=== PATIENT | male | born 1940 | race Caucasian/White ===

== ENCOUNTER 2018-03-30 18:14 | Observation (INO) | payer MEDICARE, OTHER ==
[2018-03-30] MEDS ORDERED: Acetaminophen 325 MG Tab PO PRN (19:52)
--- NOTE | 2018-03-30 19:59 | EDM.PDOC ---
ED HPI GENERAL MEDICAL PROBLEM - General Chief Complaint: General Stated Complaint: Possible Influenza Time Seen by Provider: 03/30/18 19:00 Source of Information: Reports: Patient History Limitations: Reports: No Limitations - History of Present Illness INITIAL COMMENTS - FREE TEXT/NARRATIVE: This is a 77yo M here for concerns of weakness. He was brought in by his and 2 sons. He had an episode like this in January 2018 and was placed in observation and after some fluids his symptoms resolved. Patient denies any chest pain, no fever or chills but felt that he may have had some fever. He denies any injury and is in good spirits. He does have some concerns of fatigue and weakness and unable to get out of bed. Patient states he has been feeling down all winter and getting weaker all winter. He states he has lost his appetite as well and has lost weight. He denies any other health concerns and recently saw his PCP Dr. Miranda in [place] on Mar 22. Onset: Gradual, Unknown/Unsure Duration: Week(s):, Chronic Location: Reports: Generalized Severity: Severe Improves with: Reports: None Worsens with: Reports: None Associated Symptoms: Reports: Weakness Generalized Pain Score (Numeric/FACES): 5 - Related Data Allergies Allergy/AdvReac Type Severity Reaction Status Date / Time No Known Allergies Allergy Verified 03/30/18 19:05 Home Meds: Home Meds RX: Fluticasone/Salmeterol [Advair 250-50 Diskus] 1 puff IH BID 10/12/14 [ History] RX: Folic Acid 1 mg PO DAILY 10/12/14 [History] RX: Methotrexate Sodium [Methotrexate] 22.5 mg PO WEEKLY 10/12/14 [History] RX: Omeprazole 20 mg PO DAILY 10/12/14 [History] RX: Tiotropium [Spiriva Handihaler] 18 mcg IH DAILY 10/12/14 [History] RX: Clobetasol Propionate [Temovate 0.05% Oint] 15 gm TP DAILY 01/21/18 [History ] Calcium Carbonate/Vitamin D3 [Calcium 1,000 + D3 Caplet] 1 each PO DAILY [History] Cholecalciferol (Vitamin D3) [D3-2000] 2,000 units PO DAILY 03/30/18 [History] RX: Biotin 10,000 mcg PO DAILY 03/30/18 [History] Vits A/C/E/B Complx/Min/Lutein [Lipotriad Caplet] 1 tab PO DAILY 03/30/18 [ History] Past Medical History Respiratory History: Reports: COPD, Other (See Below) Other Respiratory History: asbestosis Gastrointestinal History: Reports: GERD Other Gastrointestinal History: hx of GERD, GI scope to be done oct 23, 2014 in [facility] Other Musculoskeletal History: hx of scolosis, spinal stenosis - Infectious Disease History Infectious Disease History: Reports: Chicken Pox, Mumps - Past Surgical History Respiratory Surgical History: Reports: None Musculoskeletal Surgical History: Reports: None Social & Family History - Family History Family Medical History: Noncontributory - Tobacco Use Smoking Status *Q: Former Smoker Packs/Tins Daily: 1 Used Tobacco, but Quit: Yes Month/Year Tobacco Last Used: 1984 - Caffeine Use Caffeine Use: Reports: Coffee - Recreational Drug Use Recreational Drug Use: No ED ROS GENERAL - Review of Systems Review Of Systems: ROS reveals no pertinent complaints other than HPI. ED EXAM, GENERAL - Physical Exam Exam: See Below Exam Limited By: No Limitations General Appearance: Alert, WD/WN, No Apparent Distress Eye Exam: Bilateral Eye: EOMI, PERRL Ears: Normal External Exam Nose: Normal Inspection Throat/Mouth: Normal Inspection Head: Atraumatic, Normocephalic Neck: Normal Inspection, Supple, Non-Tender, Full Range of Motion Respiratory/Chest: No Respiratory Distress, Lungs Clear, Normal Breath Sounds Cardiovascular: Normal Peripheral Pulses, Regular Rate, Rhythm Peripheral Pulses: 2+: Dorsalis Pedis (L), Dorsalis Pedis (R) GI/Abdominal: Normal Bowel Sounds Back Exam: Normal Inspection Extremities: Normal Inspection, Normal Range of Motion, Non-Tender, No Pedal Edema, Normal Capillary Refill Neurological: Alert, Oriented, Other (unable to stand up) Psychiatric: Normal Affect, Normal Mood Skin Exam: Warm, Dry, Intact Course - Vital Signs Last Recorded V/S: Last Vital Signs Temp 37.0 C 03/31/18 19:32 Pulse 59 L 03/31/18 19:32 Resp 16 04/01/18 00:00 BP 118/61 03/31/18 19:32 Pulse Ox 98 03/31/18 19:32 - Orders/Labs/Meds Orders: Medication Orders Acetaminophen (Tylenol) 650 mg PO Q4H PRN PRN Reason: analgesia/fever Calcium Carbonate/Glycine (Tums) 1,000 mg PO Q2HR PRN PRN Reason: Indigestion Last Admin: 03/31/18 19:31 Dose: 1,000 mg Cholecalciferol (Vitamin D3) 2,000 unit PO DAILY [facility] Last Admin: 04/01/18 07:39 Dose: 2,000 unit Admin: 03/31/18 08:23 Dose: 2,000 unit Folic Acid (Folic Acid) 1 mg PO DAILY [facility] Last Admin: 04/01/18 07:39 Dose: 1 mg Admin: 03/31/18 08:22 Dose: 1 mg Sodium Chloride (Normal Saline) 1,000 mls @ 75 mls/hr IV ASDIRECTED [facility] Last Admin: 04/01/18 01:40 Dose: 75 mls/hr Infusion: 03/31/18 11:18 Dose: 75 mls/hr Admin: 03/30/18 21:58 Dose: 75 mls/hr Non-Formulary Medication (Biotin [Biotin]) 10,000 mcg PO DAILY [facility] Last Admin: 04/01/18 07:38 Dose: 10,000 mcg Admin: 03/31/18 08:22 Dose: 10,000 mcg Non-Formulary Medication (Calcium Carbonate/Vitamin D3 [Calcium 1,000 + D3 Caplet]) 1 each PO DAILY [facility] Last Admin: 04/01/18 07:38 Dose: 1 each Admin: 03/31/18 08:21 Dose: 1 each Non-Formulary Medication (Clobetasol Propionate [Temovate 0.05% Oint]) 15 gm TP DAILY [facility] Last Admin: 04/01/18 07:40 Dose: Admin: 03/31/18 09:09 Dose: Non-Formulary Medication (Fluticasone/Salmeterol [Advair 250-50 Diskus]) 1 puff IH BID [facility] Last Admin: 04/01/18 07:39 Dose: 1 puff Admin: 03/31/18 19:32 Dose: 1 puff Admin: 03/31/18 08:21 Dose: 1 puff Admin: 03/30/18 22:16 Dose: Not Given Non-Formulary Medication (Methotrexate Sodium [Methotrexate]) 22.5 mg PO Heller@ 0900 [facility] Non-Formulary Medication (Vits A/C/E/B Complx/Min/Lutein [Lipotriad Caplet]) 1 tab PO DAILY [facility] Last Admin: 04/01/18 07:38 Dose: 1 tab Admin: 03/31/18 08:23 Dose: 1 tab Omeprazole (Omeprazole) 20 mg PO ACBREAKFAST [facility] Last Admin: 04/01/18 07:38 Dose: 20 mg Sodium Chloride (Saline Flush) 10 ml FLUSH ASDIRECTED PRN PRN Reason: Keep Vein Open Tiotropium Junior (Spiriva Handihaler) 18 mcg INH DAILY@1100 [facility] Last Admin: 03/31/18 11:13 Dose: 18 mcg Labs: Laboratory Tests 03/30/18 03/30/18 03/30/18 Range/Units 19:00 19:00 19:00 WBC 5.5 D (4.0-11.0) K/uL RBC 3.43 L (4.50-6.50) M/uL Hgb 11.1 L (13.0-18.0) g/dL Hct 33.6 L (40.0-54.0) % MCV 98 H (76-96) fL MCH 32.4 H (27.0-32.0) pg MCHC 33.0 (31.0-35.0) g/dL RDW 15.4 (11.0-16.0) % Plt Count 248 D (150-400) K/uL MPV 10.0 (6.0-10.0) fL Neut % (Auto) 67.4 (45.0-70.0) % Lymph % (Auto) 23.4 (20.0-40.0) % [place] % (Auto) 6.0 (3.0-10.0) % Eos % (Auto) 2.7 (1.0-5.0) % Baso % (Auto) 0.5 (0.0-0.5) % Neut # (Auto) 3.71 (2.00-7.50) K/uL Lymph # (Auto) 1.29 L (1.50-4.00) K/uL [place] # (Auto) 0.33 (0.20-0.80) K/uL Eos # (Auto) 0.15 (0.04-0.40) K/uL Baso # (Auto) 0.03 (0.02-0.10) K/uL Sodium 134 L (136-145) mmol/L Potassium 4.1 (3.5-5.1) mmol/L Chloride 98 (98-107) mmol/L Carbon Dioxide 23.0 (21.0-32.0) mmol/L Anion Gap 17.1 H (5.0-15.0) mmol/L BUN 11 D (8-26) mg/dL Creatinine 1.00 (0.70-1.30) mg/dL Est Cr Clr Drug Dosing 69.17 mL/min Estimated GFR (MDRD) > 60 (>60) MLS/MIN BUN/Creatinine Ratio 11.0 (6-25) Glucose 103 H (74-100) mg/dL Calcium Not Reportable POC WB Ioniz Calcium 4.7 (4.5-5.3) mg/dL Meds: Medications Generic Name Dose Route Start Last Admin Trade Name Freq PRN Reason Stop Dose Admin Acetaminophen 650 mg 03/30/18 19:52 Tylenol PO Q4H PRN analgesia/fever Calcium Carbonate/Glycine 1,000 mg 03/31/18 19:03 03/31/18 19:31 Tums PO 1,000 mg Q2HR PRN Administration Indigestion Cholecalciferol 2,000 unit 03/31/18 08:00 04/01/18 07:39 Vitamin D3 PO 2,000 unit DAILY SHE Administration Folic Acid 1 mg 03/31/18 08:00 04/01/18 07:39 Folic Acid PO 1 mg DAILY SHE Administration Sodium Chloride 1,000 mls @ 75 mls/hr 03/30/18 20:00 04/01/18 01:40 Normal Saline IV 75 mls/hr ASDIRECTED SHE Administration Non-Formulary Medication 10,000 mcg 03/31/18 08:00 04/01/18 07:38 Biotin [Biotin] PO 10,000 mcg DAILY SHE Administration Non-Formulary Medication 1 each 03/31/18 08:00 04/01/18 07:38 Calcium Carbonate/Vitamin D3 [Calcium 1,000 + D3 Caplet] PO 1 each DAILY SHE Administration Non-Formulary Medication 15 gm 03/31/18 08:00 04/01/18 07:40 Clobetasol Propionate [Temovate 0.05% Oint] TP Not Given DAILY SHE Non-Formulary Medication 1 puff 03/30/18 20:00 04/01/18 07:39 Fluticasone/Salmeterol [Advair 250-50 Diskus] IH 1 puff BID SHE Administration Non-Formulary Medication 22.5 mg 04/04/18 09:00 Methotrexate Sodium [Methotrexate] PO Heller@0900 SHE Non-Formulary Medication 1 tab 03/31/18 08:00 04/01/18 07:38 Vits A/C/E/B Complx/Min/Lutein [Lipotriad Caplet] PO 1 tab DAILY SHE Administration Omeprazole 20 mg 04/01/18 07:00 04/01/18 07:38 Omeprazole PO 20 mg ACBREAKFAST SHE Administration Sodium Chloride 10 ml 03/31/18 08:30 Saline Flush FLUSH ASDIRECTED PRN Keep Vein Open Tiotropium Junior 18 mcg 03/31/18 11:00 03/31/18 11:13 Spiriva Handihaler INH 18 mcg DAILY@1100 SHE Administration Discontinued Medications Generic Name Dose Route Start Last Admin Trade Name Freq PRN Reason Stop Dose Admin Omeprazole 20 mg 03/31/18 08:00 03/31/18 08:23 Omeprazole PO 20 mg DAILY SHE Administration Tiotropium Junior 18 mcg 03/31/18 08:00 03/31/18 08:42 Spiriva Handihaler INH Not Given DAILY SHE Departure - Departure Time of Disposition: 18:30 Disposition: Refer to Observation Condition: Good Clinical Impression: Generalized weakness, Acute weakness, Dehydration, Weight loss - Discharge Information - Problem List & Annotations (1) Acute weakness SNOMED Code(s): 79156628 Code(s): R53.1 - WEAKNESS Status: Acute Priority: High Current Visit: Yes (2) Dehydration SNOMED Code(s): 97202239 Code(s): E86.0 - DEHYDRATION Status: Acute Priority: Medium Current Visit: Yes (3) Generalized weakness SNOMED Code(s): 43029149 Code(s): R53.1 - WEAKNESS Status: Acute Priority: High Current Visit: Yes (4) Weight loss SNOMED Code(s): 15500359, 990960847 Code(s): R63.4 - ABNORMAL WEIGHT LOSS Status: Acute Priority: Medium Current Visit: Yes (5) Anemia SNOMED Code(s): 735775462 Code(s): D64.9 - ANEMIA, UNSPECIFIED Status: Chronic Priority: Medium Current Visit: Yes Qualifiers: Anemia type: unspecified type Qualified Code(s): D64.9 - Anemia, unspecified (6) Hyponatremia SNOMED Code(s): 40090141 Code(s): E87.1 - HYPO-OSMOLALITY AND HYPONATREMIA Status: Acute Priority : High Current Visit: Yes - Problem List Review Problem List Initiated/Reviewed/Updated: Yes - Assessment/Plan Plan: Patient will be placed in observation and given fluid hydration. He will be assessed by PT/OT for further management. Repeat labs in AM.
[2018-03-30] MEDS: Sodium Chloride 0.9% 1,000 ML IV SCH (21:58)
[2018-03-30] MEDS: Non-Formulary Medication 1 Each (Fluticasone/Salmeterol [Advair 250-50 Diskus] 1 PUFF) IH SCH (22:16)
[2018-03-31] MEDS ORDERED: Omeprazole 20 MG Cap.CR PO SCH (08:00)
[2018-03-31] MEDS ORDERED: Tiotropium Inhaler 18 MCG Inhalation Powder Cap Kit of 5 INH SCH (08:00)
[2018-03-31] MEDS: Non-Formulary Medication 1 Each (Fluticasone/Salmeterol [Advair 250-50 Diskus] 1 PUFF) IH SCH ×2 (08:21→19:32)
[2018-03-31] MEDS: Folic Acid 1 MG Tab PO SCH (08:22)
[2018-03-31] MEDS: Non-Formulary Medication 1 Each (Biotin [Biotin] 10,000 MCG) PO SCH (08:22)
[2018-03-31] MEDS: Cholecalciferol (Vitamin D3) 2,000 Unit Cap PO SCH (08:23)
[2018-03-31] MEDS: LUTEIN PO SCH (08:23)
[2018-03-31] MEDS: [UNRECOGNIZED DRUG - OTHER] PO SCH (08:23)
[2018-03-31] MEDS: VITS A PO SCH (08:23)
[2018-03-31] MEDS ORDERED: Sodium Chloride 0.9% 10 ML Syringe FLUSH PRN (08:30)
[2018-03-31] MEDS: CLOBETASOL PROPIONATE TP SCH (09:09)
[2018-03-31] MEDS: Tiotropium Inhaler 18 MCG Inhalation Powder Cap Kit of 5 INH SCH (11:13)
--- NOTE | 2018-03-31 11:52 | CR ---
DATE OF SERVICE: 03/31/18 CLINICAL DATA: cough PA AND LATERAL CHEST: Comparison is made to a prior exam dated 10/12/14. The heart size is stable. There is a gas-containing mass posterior to the heart consistent with a hiatal hernia. There is calcification of the aortic arch. There is pleural thickening in both hemithoraces. There are densities in both lung bases consistent with basilar atelectasis or infiltrate. Pneumonia should be considered. The exam is otherwise unchanged from the prior. No pneumothorax. No pleural effusion. [id number] [facility]
[2018-03-31] MEDS ORDERED: Calcium Carbonate 500 MG Tab.Chew PO PRN (19:03)
--- NOTE | 2018-03-31 23:43 | PCM.PN ---
- General Info Date of Service: 03/31/18 Subjective Update: Patient has good improvement today. PT/OT in to assess. Patient denies any issues overnight and feeling better. No concerns. Functional Status: Reports: Tolerating Diet - Review of Systems General: Reports: Weakness HEENT: Reports: No Symptoms Pulmonary: Reports: No Symptoms Cardiovascular: Reports: No Symptoms Gastrointestinal: Reports: No Symptoms Genitourinary: Reports: No Symptoms Musculoskeletal: Reports: No Symptoms Skin: Reports: No Symptoms Neurological: Reports: Weakness Psychiatric: Reports: No Symptoms - Patient Data Vitals - Most Recent: Last Vital Signs Temp 37.0 C 03/31/18 19:32 Pulse 59 L 03/31/18 19:32 Resp 16 03/31/18 19:32 BP 118/61 03/31/18 19:32 Pulse Ox 98 03/31/18 19:32 Weight - Most Recent: 80.513 kg I&O - Last 24 Hours: Intake & Output 03/31/18 03/31/18 04/01/18 14:59 22:59 06:59 Intake Total 584 Balance 584 Lab Results Last 24 Hours: Laboratory Results - last 24 hr 03/31/18 03/31/18 Range/Units 07:35 07:35 WBC 4.5 (4.0-11.0) K/uL RBC 3.31 L (4.50-6.50) M/uL Hgb 10.8 L (13.0-18.0) g/dL Hct 32.6 L (40.0-54.0) % MCV 99 H (76-96) fL MCH 32.6 H (27.0-32.0) pg MCHC 33.1 (31.0-35.0) g/dL RDW 15.5 (11.0-16.0) % Plt Count 226 (150-400) K/uL MPV 10.2 H (6.0-10.0) fL Neut % (Auto) 62.4 (45.0-70.0) % Lymph % (Auto) 24.6 (20.0-40.0) % [place] % (Auto) 8.7 (3.0-10.0) % Eos % (Auto) 3.6 (1.0-5.0) % Baso % (Auto) 0.7 H (0.0-0.5) % Neut # (Auto) 2.79 (2.00-7.50) K/uL Lymph # (Auto) 1.10 L (1.50-4.00) K/uL [place] # (Auto) 0.39 (0.20-0.80) K/uL Eos # (Auto) 0.16 (0.04-0.40) K/uL Baso # (Auto) 0.03 (0.02-0.10) K/uL Sodium 138 (136-145) mmol/L Potassium 4.2 (3.5-5.1) mmol/L Chloride 103 (98-107) mmol/L Carbon Dioxide 25.2 (21.0-32.0) mmol/L Anion Gap 14.0 (5.0-15.0) mmol/L BUN 11 (8-26) mg/dL Creatinine 1.01 (0.70-1.30) mg/dL Est Cr Clr Drug Dosing 65.09 mL/min Estimated GFR (MDRD) > 60 (>60) MLS/MIN BUN/Creatinine Ratio 10.9 (6-25) Glucose 95 (74-100) mg/dL Calcium 8.6 (8.5-10.1) mg/dL B-Natriuretic Peptide 200 (0-450) pg/mL TSH, Ultra Sensitive 2.509 (0.358-3.740) uIU/mL Jerel Results Last 24 Hours: Microbiology 03/30/18 19:00 Influenza Type A Antigen Screen - Final Nasal, Unspecified NEGATIVE INFLUENZA A VIRUS AG Influenza Type B Antigen Screen - Final NEGATIVE INFLUENZA B VIRUS AG Med Orders - Current: Current Medications Acetaminophen (Tylenol) 650 mg PO Q4H PRN PRN Reason: analgesia/fever Calcium Carbonate/Glycine (Tums) 1,000 mg PO Q2HR PRN PRN Reason: Indigestion Last Admin: 03/31/18 19:31 Dose: 1,000 mg Cholecalciferol (Vitamin D3) 2,000 unit PO DAILY [facility] Last Admin: 03/31/18 08:23 Dose: 2,000 unit Folic Acid (Folic Acid) 1 mg PO DAILY [facility] Last Admin: 03/31/18 08:22 Dose: 1 mg Sodium Chloride (Normal Saline) 1,000 mls @ 75 mls/hr IV ASDIRECTED [facility] Last Admin: 03/30/18 21:58 Dose: 75 mls/hr Non-Formulary Medication (Biotin [Biotin]) 10,000 mcg PO DAILY [facility] Last Admin: 03/31/18 08:22 Dose: 10,000 mcg Non-Formulary Medication (Calcium Carbonate/Vitamin D3 [Calcium 1,000 + D3 Caplet]) 1 each PO DAILY [facility] Last Admin: 03/31/18 08:21 Dose: 1 each Non-Formulary Medication (Clobetasol Propionate [Temovate 0.05% Oint]) 15 gm TP DAILY [facility] Last Admin: 03/31/18 09:09 Dose: Not Given Non-Formulary Medication (Fluticasone/Salmeterol [Advair 250-50 Diskus]) 1 puff IH BID [facility] Last Admin: 03/31/18 19:32 Dose: 1 puff Non-Formulary Medication (Methotrexate Sodium [Methotrexate]) 22.5 mg PO Heller@ 0900 [facility] Non-Formulary Medication (Vits A/C/E/B Complx/Min/Lutein [Lipotriad Caplet]) 1 tab PO DAILY [facility] Last Admin: 03/31/18 08:23 Dose: 1 tab Omeprazole (Omeprazole) 20 mg PO ACBREAKFAST [facility] Sodium Chloride (Saline Flush) 10 ml FLUSH ASDIRECTED PRN PRN Reason: Keep Vein Open Tiotropium Brandon (Spiriva Handihaler) 18 mcg INH DAILY@1100 [facility] Last Admin: 03/31/18 11:13 Dose: 18 mcg Discontinued Medications Omeprazole (Omeprazole) 20 mg PO DAILY [facility] Last Admin: 03/31/18 08:23 Dose: 20 mg Tiotropium [place] (Spiriva Handihaler) 18 mcg INH DAILY [facility] Last Admin: 03/31/18 08:42 Dose: Not Given - Exam General: Alert, Oriented, Cooperative HEENT: Pupils Equal, Pupils Reactive, EOMI, Mucous Membr. Moist/[place] Neck: Supple Lungs: Clear to Auscultation, Normal Respiratory Effort Cardiovascular: Regular Rate, Regular Rhythm GI/Abdominal Exam: Normal Bowel Sounds, Non-Tender Back Exam: Normal Inspection Extremities: Normal Inspection Peripheral Pulses: 2+: Dorsalis Pedis (L), Dorsalis Pedis (R) Skin: Warm, Dry, Intact - Problem List & Annotations (1) Acute weakness SNOMED Code(s): 74857536 Code(s): R53.1 - WEAKNESS Status: Acute Priority: High Current Visit: Yes (2) Dehydration SNOMED Code(s): 77734432 Code(s): E86.0 - DEHYDRATION Status: Resolved Priority: Medium Current Visit: Yes (3) Generalized weakness SNOMED Code(s): 32296054 Code(s): R53.1 - WEAKNESS Status: Acute Priority: High Current Visit: Yes (4) Hyponatremia SNOMED Code(s): 89503846 Code(s): E87.1 - HYPO-OSMOLALITY AND HYPONATREMIA Status: Resolved Priority: High Current Visit: Yes (5) Weight loss SNOMED Code(s): 52689193, 174468902 Code(s): R63.4 - ABNORMAL WEIGHT LOSS Status: Chronic Priority: Medium Current Visit: Yes (6) Anemia SNOMED Code(s): 353102164 Code(s): D64.9 - ANEMIA, UNSPECIFIED Status: Chronic Priority: Medium Current Visit: Yes Qualifiers: Anemia type: unspecified type Qualified Code(s): D64.9 - Anemia, unspecified - Problem List Review Problem List Initiated/Reviewed/Updated: Yes - My Orders Last 24 Hours: My Active Orders 03/31/18 07:35 CULTURE MRSA SURVEY [RM] Routine FOLATE (FOLIC ACID), SERUM Routine VITAMIN B12 Routine VITAMIN D, 25-HYDROXY Routine 03/31/18 08:00 Biotin [Biotin] 10,000 mcg PO DAILY Calcium Carbonate/Vitamin D3 [Calcium 1,000 + D3 Caplet] 1 each PO DAILY Cholecalciferol (Vitamin D3) [Vitamin D3] 2,000 unit PO DAILY Clobetasol Propionate [Temovate 0.05% Oint] 15 gm TP DAILY Folic Acid 1 mg PO DAILY Vits A/C/E/B Complx/Min/Lutein [Lipotriad Caplet] 1 tab PO DAILY 03/31/18 08:30 Sodium Chloride 0.9% [Saline Flush] 10 ml FLUSH ASDIRECTED PRN 03/31/18 09:01 Consult to Occupational Therapy [OT Evaluation and Treatment] [CONS] Routine Consult to Physical Therapy [PT Evaluation and Treatment] [CONS] Routine 03/31/18 11:00 Tiotropium [Spiriva HandiHaler] 18 mcg INH DAILY@1100 03/31/18 19:03 Calcium Carbonate [Tums] 1,000 mg PO Q2HR PRN 03/31/18 Breakfast Regular Diet [DIET] 04/01/18 07:00 Omeprazole 20 mg PO ACBREAKFAST 04/04/18 09:00 Methotrexate Sodium [Methotrexate] 22.5 mg PO Heller@0900 - Plan Plan:: Patient will be reassess and fluid hydration continued. He is still shaky and unable to walk steadily but has improved greatly. For safety we will reassess his strength in AM. No further labs necessary. Continue PT/OT today and likely discharge planning tomorrow if his strength continues to normalize.
[2018-04-01] MEDS: Sodium Chloride 0.9% 1,000 ML IV SCH ×2 (01:26→01:40)
[2018-04-01] MEDS ORDERED: Omeprazole 20 MG Cap.CR PO SCH (07:00)
[2018-04-01] MEDS: LUTEIN PO SCH (07:38)
[2018-04-01] MEDS: [UNRECOGNIZED DRUG - OTHER] PO SCH (07:38)
[2018-04-01] MEDS: Non-Formulary Medication 1 Each (Biotin [Biotin] 10,000 MCG) PO SCH (07:38)
[2018-04-01] MEDS: VITS A PO SCH (07:38)
[2018-04-01] MEDS: Non-Formulary Medication 1 Each (Fluticasone/Salmeterol [Advair 250-50 Diskus] 1 PUFF) IH SCH (07:39)
[2018-04-01] MEDS: Folic Acid 1 MG Tab PO SCH (07:39)
[2018-04-01] MEDS: Cholecalciferol (Vitamin D3) 2,000 Unit Cap PO SCH (07:39)
[2018-04-01] MEDS: CLOBETASOL PROPIONATE TP SCH (07:40)
--- NOTE | 2018-04-01 08:52 | PCM.DCSUM1 ---
Discharge Summary - Hospital Course HPI Initial Comments: Patient is a 77yo M with acute onset weakness aggravated by chronic generalized weakness placed in observation for fluid hydration and PT/OT assessment. He was unable to get out of bed himself and was brought by his into the ER. Patient has improved greatly with fluid hydration. It is noted that he has had a poor appetite for some time and has lost weight. - Discharge Data Discharge Date: 04/01/18 Discharge Disposition: Home, Self-Care 01 Condition: Good - Patient Summary/Data Consults: Consultations 03/31/18 09:01 Consult to Occupational Therapy [OT Evaluation and Treatment] [CONS] Routine Please Evaluate and Treat. OT Reason for Consult: ADL's This query below is only for informational purposes and is not editable. Admission Diagnosis/Problem: Weakness Consult to Physical Therapy [PT Evaluation and Treatment] [CONS] Routine Please Evaluate and Treat. PT Reason for Consult: Ambulation This query below is only for informational purposes and is not editable. Admission Diagnosis/Problem: Weakness - Patient Instructions Diet: Regular Diet as Tolerated Activity: As Tolerated Driving: Do Not Drive - Discharge Plan Home Medications: Home Meds Fluticasone/Salmeterol [Advair 250-50 Diskus] 1 puff IH BID 10/12/14 [History] Folic Acid 1 mg PO DAILY 10/12/14 [History] Methotrexate Sodium [Methotrexate] 22.5 mg PO WEEKLY 10/12/14 [History] Omeprazole 20 mg PO DAILY 10/12/14 [History] Tiotropium [Spiriva Handihaler] 18 mcg IH DAILY 10/12/14 [History] Clobetasol Propionate [Temovate 0.05% Oint] 15 gm TP DAILY 01/21/18 [History] Biotin 10,000 mcg PO DAILY 03/30/18 [History] Calcium Carbonate/Vitamin D3 [Calcium 1,000 + D3 Caplet] 1 each PO DAILY [History] Cholecalciferol (Vitamin D3) [D3-2000] 2,000 units PO DAILY 03/30/18 [History] Vits A/C/E/B Complx/Min/Lutein [Lipotriad Caplet] 1 tab PO DAILY 03/30/18 [ History] Forms: ED Department Discharge Referrals: PCP,None [Primary Care Provider] - - Discharge Summary/Plan Comment DC Time >30 min.: Yes Discharge Summary/Plan Comment: Counseled on discharge instructions. Discussed PT/OT referral and outpatient treatment and management. Discussed f/u with his PCP in [place] Dr. Miranda. Patient agrees with f/u and outpatient Therapy. Patient discharged on no new medications. Sons and will come pick him up for discharge. Front wheeled walked prescribed for mobility. Counseled extensively on exercise, nutrition, hydration and further care and follow up. - Patient Data Vitals - Most Recent: Last Vital Signs Temp 37.0 C 03/31/18 19:32 Pulse 59 L 03/31/18 19:32 Resp 16 04/01/18 00:00 BP 118/61 03/31/18 19:32 Pulse Ox 98 03/31/18 19:32 Weight - Most Recent: 80.513 kg I&O - Last 24 hours: Intake & Output 03/31/18 04/01/18 04/01/18 22:59 06:59 14:59 Intake Total 584 1800 Balance 584 1800 Lab Results - Last 24 hrs: Laboratory Results - last 24 hr 03/31/18 Range/Units 07:35 Sodium 138 (136-145) mmol/L Potassium 4.2 (3.5-5.1) mmol/L Chloride 103 (98-107) mmol/L Carbon Dioxide 25.2 (21.0-32.0) mmol/L Anion Gap 14.0 (5.0-15.0) mmol/L BUN 11 (8-26) mg/dL Creatinine 1.01 (0.70-1.30) mg/dL Est Cr Clr Drug Dosing 65.09 mL/min Estimated GFR (MDRD) > 60 (>60) MLS/MIN BUN/Creatinine Ratio 10.9 (6-25) Glucose 95 (74-100) mg/dL Calcium 8.6 (8.5-10.1) mg/dL B-Natriuretic Peptide 200 (0-450) pg/mL TSH, Ultra Sensitive 2.509 (0.358-3.740) uIU/mL MARI Results - Last 24 hrs: Microbiology 03/31/18 07:35 MRSA Surveillance Culture - Final Nares, Unspecified NO MRSA ISOLATED Med Orders - Current: Current Medications Acetaminophen (Tylenol) 650 mg PO Q4H PRN PRN Reason: analgesia/fever Calcium Carbonate/Glycine (Tums) 1,000 mg PO Q2HR PRN PRN Reason: Indigestion Last Admin: 03/31/18 19:31 Dose: 1,000 mg Cholecalciferol (Vitamin D3) 2,000 unit PO DAILY [facility] Last Admin: 04/01/18 07:39 Dose: 2,000 unit Folic Acid (Folic Acid) 1 mg PO DAILY [facility] Last Admin: 04/01/18 07:39 Dose: 1 mg Sodium Chloride (Normal Saline) 1,000 mls @ 75 mls/hr IV ASDIRECTED [facility] Last Admin: 04/01/18 01:40 Dose: 75 mls/hr Non-Formulary Medication (Biotin [Biotin]) 10,000 mcg PO DAILY [facility] Last Admin: 04/01/18 07:38 Dose: 10,000 mcg Non-Formulary Medication (Calcium Carbonate/Vitamin D3 [Calcium 1,000 + D3 Caplet]) 1 each PO DAILY [facility] Last Admin: 04/01/18 07:38 Dose: 1 each Non-Formulary Medication (Clobetasol Propionate [Temovate 0.05% Oint]) 15 gm TP DAILY [facility] Last Admin: 04/01/18 07:40 Dose: Not Given Non-Formulary Medication (Fluticasone/Salmeterol [Advair 250-50 Diskus]) 1 puff IH BID [facility] Last Admin: 04/01/18 07:39 Dose: 1 puff Non-Formulary Medication (Methotrexate Sodium [Methotrexate]) 22.5 mg PO Heller@ 0900 [facility] Non-Formulary Medication (Vits A/C/E/B Complx/Min/Lutein [Lipotriad Caplet]) 1 tab PO DAILY [facility] Last Admin: 04/01/18 07:38 Dose: 1 tab Omeprazole (Omeprazole) 20 mg PO ACBREAKFAST [facility] Last Admin: 04/01/18 07:38 Dose: 20 mg Sodium Chloride (Saline Flush) 10 ml FLUSH ASDIRECTED PRN PRN Reason: Keep Vein Open Tiotropium [place] (Spiriva Handihaler) 18 mcg INH DAILY@1100 [facility] Last Admin: 03/31/18 11:13 Dose: 18 mcg Discontinued Medications Omeprazole (Omeprazole) 20 mg PO DAILY [facility] Last Admin: 03/31/18 08:23 Dose: 20 mg Tiotropium [place] (Spiriva Handihaler) 18 mcg INH DAILY [facility] Last Admin: 03/31/18 08:42 Dose: Not Given
[2018-04-01 09:22] VITALS: BP 124/69
[2018-04-01] MEDS: Tiotropium Inhaler 18 MCG Inhalation Powder Cap Kit of 5 INH SCH (12:31)
[2018-04-04] MEDS ORDERED: METHOTREXATE SODIUM PO SCH (09:00)
== END 2018-04-01 14:00 | disposition home or self-care (01) ==
LOC: LB.ED 18:14 → LB.MS 19:45 → UNDOADMOB 19:45 → LB.MS 19:52
PROVIDERS: ADMIT Family Medicine; ATTEND Family Medicine
DX: E86.0 Dehydration (principal); E87.1 Hypo-osmolality and hyponatremia; R53.1 Weakness; R63.4 Abnormal weight loss; D64.9 Anemia, unspecified; J44.9 Chronic obstructive pulmonary disease, unspecified; Z87.891 Personal history of nicotine dependence; Z79.899 Other long term (current) drug therapy
CPT/HCPCS: 36415; 71046; 80048; 82306; 82330; 82607; 82746; 83880; 84443; 85025; 87804; 96360; 96361; 97110-GO; 97110-GP; 97161-GP; 97165-GO; 99217; 99218; 99224; 99285; A9270-GY; G0378; J7030

== ENCOUNTER 2018-06-25 14:01 | Observation (INO) | payer MEDICARE, OTHER ==
[2018-06-25] MEDS ORDERED: predniSONE 20 MG Tab PO ONE (17:53)
[2018-06-25] MEDS ORDERED: Albuterol/Ipratropium 3.0-0.5 MG/3 ML Neb Soln NEB PRN (17:55)
[2018-06-25] MEDS ORDERED: Carbidopa/Levodopa 25-100 MG Tab PO ONE (17:57)
[2018-06-25] MEDS: Azithromycin 250 MG Tab PO SCH (18:34)
[2018-06-25] MEDS ORDERED: cefTRIAXone 1 GM Vial ONE (19:08)
[2018-06-25] MEDS: cefTRIAXone 1 GM in Sodium Chloride 0.9% 50 ML IV SCH (19:46)
[2018-06-25] MEDS ORDERED: Acetaminophen 500 MG Tab PO ONE (19:59)
[2018-06-26] MEDS: Omeprazole 20 MG Cap.CR PO SCH (08:12)
[2018-06-26] MEDS: Azithromycin 250 MG Tab PO SCH (08:14)
[2018-06-26] MEDS: Sertraline 50 MG Tab PO SCH (08:14)
[2018-06-26] MEDS ORDERED: Carbidopa/Levodopa 25-100 MG Tab ONE (11:12)
[2018-06-26] MEDS: Carbidopa/Levodopa 25-100 MG Tab PO SCH ×3 (11:41→18:17)
--- NOTE | 2018-06-26 14:00 | PN ---
DATE OF SERVICE: 06/26/2018 SUBJECTIVE: The patient is an 78-year-old white male who was placed on observation yesterday. When he came in initially, his O2 saturation was going up to 94%. He was quite weak and was having a hard time responding and giving us answers. He had a minimal infiltrate on the left side on x-ray, but his white count was normal. He did have a fever but generally did not look horrible, but it was a little iffy whether or not to admit him, so we decided to put him in for observation, which turns out to be a good thing. He notes he is feeling 100% better this morning and the difference in him is quite dramatic. He spiked a temperature to 103.3 last night. After getting the IV antibiotics, his heart rate went up to 102. His respiratory rate was 26, his O2 saturation was 90% on the room air. Over the course of the night, his temperature this morning is now 98.2, his pulse is 62, his blood pressure is 137/61. It was fairly stable, but his pulse rate has improved greatly and his O2 saturation this morning is 95% with respirations of 16. PHYSICAL EXAMINATION: GENERAL: Otherwise, he looks much better. He is alert and oriented. He was confused last night. LUNGS: Have a little bit better breath sounds now. He has some more coarse rhonchi that were not really appreciated this much yesterday. Still do not hear a lot for crackles. HEART: Regular sinus rhythm. ABDOMEN: Benign. ASSESSMENT: The patient definitely looks better this morning since I have 48 hours on observation. I think I will keep him till tomorrow morning. Give him another dose of IV antibiotic today along with the prednisone and his nebulizers. I did start him on some sertraline yesterday because I think he has depression and obviously, this is too early for this to work, but his affect is much better this morning. We did also try him with some Sinemet, but since he was not really moving much yesterday, we really could no get a feel for whether or not the Sinemet was helpful. The patient was noted to have Parkinson 's on exam after we actually put him in observation, so as it turns out there were several good reasons for putting him in and he is quite a bit better today. We will keep him overnight and let him go home in the morning. This way he get another dose of IV antibiotics and we can have him ambulate a little in the [place] with his walker and then, we can give him some Sinemet and have him ambulate again and see if he finds it helpful. So, we can try the Sinemet. We can give him another dose of IV antibiotic and give the prednisone and the antibiotics a little longer to work, and I think it will be much better to discharge him home tomorrow. BRANDON/FOX /[id number] MTDD
[2018-06-26] MEDS: predniSONE 20 MG Tab PO SCH (16:21)
[2018-06-26] MEDS: cefTRIAXone 1 GM in Sodium Chloride 0.9% 50 ML IV SCH (20:02)
[2018-06-26] MEDS ORDERED: Calcium Carbonate 500 MG Tab.Chew PO PRN (21:01)
[2018-06-27] MEDS: Omeprazole 20 MG Cap.CR PO SCH (07:16)
[2018-06-27 07:21] VITALS: BP 134/77
[2018-06-27] MEDS ORDERED: Azithromycin 500 MG Tab ONE (07:58)
[2018-06-27] MEDS: predniSONE 20 MG Tab PO SCH (08:15)
[2018-06-27] MEDS: Carbidopa/Levodopa 25-100 MG Tab PO SCH ×2 (08:16→12:00)
[2018-06-27] MEDS: Azithromycin 250 MG Tab PO SCH (08:17)
[2018-06-27] MEDS: Sertraline 50 MG Tab PO SCH (08:17)
--- NOTE | 2018-06-27 18:05 | CR ---
Date of Service: 06/25/18 Clinical Data: SOB PA AND LATERAL CHEST: Comparison is made to a prior exam dated 03/31/18. The patient has taken a poor inspiration. The heart is enlarged. The pulmonary vasculature is more prominent than on the prior exam with cephalization of flow consistent with pulmonary venous congestion. There are mild interstitial changes throughout both lungs. Congestive failure is suspected. There are densities in both lung bases consistent with basilar atelectasis or infiltrate. There is blunting of both costophrenic angles suggesting small bilateral pleural effusions. No other interval changes from the prior study. [id number] [facility]
--- NOTE | 2018-06-28 04:02 | DISCH ---
HOSPITAL COURSE: The patient is an 78-year-old male who presented to the emergency room with extreme weakness, some shortness of breath. The patient has a history of COPD. He actually had a normal white count, but was febrile to 101.4. Chest x-ray showed some infiltrate on the left lower lobe, which was in a different distribution than his previous infiltrate about a month or so ago. The patient was not coughing any purulent sputum. He exhibited, however, some marked weakness. The patient could barely sit up when I asked to listen to his lungs. He was unable to ambulate. He just had to be brought in by his family because he could not get in on his own. They had initially thought about bringing him to the clinic, but they ended up calling the son to come and help pick him up to get him in. The patient was placed on observation. On re-examining him, he was noted to have a tremor that is bilateral and he had marked cogwheeling. Difficult to tell whether his lack of expression was from depression or Parkinson's or both. At any rate, we really could not have the patient ambulate to try any Sinemet the first day because he was just too weak. I initially started him on some p.o. azithromycin. However, given his temperature starting to creep up and just a general look of him, we went ahead and added some IV Rocephin. Shortly after getting the IV Rocephin, the patient spiked a temperature to 103.5 and then defervesced and looked quite a bit better the next morning. He still had some weakness, but given the fact that he had such an improvement with the IV antibiotic and we were still wondering about his Parkinson's and his ability to ambulate, we went ahead and held onto him for that day, so we could try some Sinemet. We did have him ambulate prior to taking the Sinemet. We gave him some Sinemet and had him ambulate again and he noted significant difference with it, so we went ahead and started him on the Sinemet. The patient looked dramatically better the next day, was doing even better after he got the Sinemet. We also discussed an antidepressant, which I started him on also. I think his profound weakness is a combination of a bacterial respiratory infection, most likely a left lower lobe pneumonia, some Parkinson's, and probably also some depression. I discussed with him that he had enough symptoms and just his general affect would make me suspect depression. His affect obviously improved after he got the prednisone for his COPD. We gave him 40 mg of prednisone also and some nebulizer treatments. He did have some coarse rhonchi afterwards, but never really could appreciate any crackles, but his breath sounds improved. His O2 sats went up into the mid 90s. They had dropped down fairly low. Initially, when he came in, his O2 sat was 94, but then it kind of dropped down a little bit into the upper 80s. Prior to leaving, his O2 sat again was back up in the mid 90s consistently when he did have coarse rhonchi, but again seem to be doing quite a bit better. He was quite pleased with the results of the Sinemet, probably also with the prednisone. I still think he needs an antidepressant, so he was discharged home on his usual medications as well as a week's worth of Ceftin 500 one p.o. b.i.d. He had already had 3 doses of the azithromycin. We gave him some Sinemet 25/100 one p.o. t.i.d. I also started him on some sertraline 50 mg p.o. daily and he has 2 more days of the prednisone to take for a 5-day burst of 40 mg. He has an appointment in 3 or 4 weeks down in [place] with the doctor he usually sees. I have recommended he follow up with one of the physicians here in about a week since he will be about done with the antibiotic at that time and I would just like them to check in on him and see how he is doing. He can continue to follow up with his usual physician. I gave him a refill on the Sinemet with 90 tablets and a refill on the sertraline. However, if he is going to continue on these, he will need to have them prescribed regularly by one of his regular providers. BRANDON/FOX /[id number]
--- NOTE | 2018-06-28 09:27 | HP ---
DATE OF SERVICE: 06/25/2018 HISTORY OF PRESENT ILLNESS: The patient is an 78-year-old male, who comes in today with initial complaint of shortness of breath. His main complaint though actually seems to be weakness, takes several family members for them to move him. He did have a little bit of a low-grade fever. The patient had a temperature of 101.4 in the ER. His respiratory rate was somewhat elevated at 28. His O2 saturation was not bad at 94%. The patient has a past history of COPD. He also has this history of weakness, which he notes has been going on for a while. When asked his how long his symptoms have been going, she notes it has been months. Reviewing his clinic chart, there is a note in there about weakness for the past year. At any rate, the patient presented to the ER with a complaint of shortness of breath. He does have a previous history of pneumonia. ALLERGIES: NKDA. CURRENT MEDICATIONS: Advair Diskus 100/50 one puff q.12, ProAir metered dose inhaler 1 puff q.4, Spiriva inhaler 18 mcg 1 puff daily, calcium and vitamin D, Lipotriad vision support capsules, vitamin D3 1000 units twice a day, omeprazole 20 mg p.o. daily, clobetasol propionate 0.05% for rash, folic acid 1 mg p.o. daily for rheumatoid arthritis, methotrexate 2.5 mg 9 tablets one day each week. He had been on some amoxicillin/clavulanate for chronic sinusitis on 05/26/2018. PAST MEDICAL HISTORY: Significant for: 1. Rheumatoid arthritis. 2. COPD. PAST SURGICAL HISTORY: I do not have the patient's past surgical history, and he is not particularly good at giving history today. He is in fact quite reluctant to talk about many of his symptoms. He has a flat affect and is having a difficult time even moving around the exam bed for being examined. PHYSICAL EXAMINATION: VITAL SIGNS: Temperature was 101.4, pulse is 90, blood pressure is 147/88, respiratory rate is 28, O2 saturation is 94% on room air. HEENT: Unremarkable. Oral mucosa appears somewhat dry. NECK: Supple. No nodes. LUNGS: Noted to have some decreased breath sounds and a few coarse rhonchi, but I really do not appreciate any crackles. ABDOMEN: Benign. HEART: Regular sinus rhythm. EXTREMITIES: No clubbing, cyanosis, or edema, but the patient does have a pill rolling tremor and he does have quite marked cogwheeling. LABORATORY RESULTS: White count is 4.8, 70.9% neutrophils, hemoglobin and hematocrit are 12.3 and 37.3. Basic metabolic panel shows a sodium of 130, chloride of 97, potassium 3.9, BUN is 13, creatinine is 1.15. Liver functions are all within normal limits. We did do a chest x-ray which shows a left lower lobe infiltrate, which the patient had previously in March. At that time, he was admitted and it appears to be in a somewhat different distribution. The patient may have an early pneumonia. ASSESSMENT: 1. Chronic obstructive pulmonary disease. 2. Weakness. The patient may have an early pneumonia. He definitely has Parkinson's. When I mentioned this to him after examining him a second time noting the tremor, he said he has been informed of this in the past, but cannot really decide when or where. He is not taking anything for it and does not recall ever having taken anything for it. The patient's flat affect could be accounted for by his Parkinson's with rigid facies, but his fatigue and general lack of initiative seem to be more likely related to depression. He notes he sleeps okay, but his notes he tosses and turns at night and does not sleep all that well. I initially asked him if he had any pain anywhere, he stated he did not, but then again on a repeat examination and further questioning, which is very difficult because the patient is very reluctant to provide any answers to anything, he does note he has a little bit of left- sided chest pain not with inspiration, it is just there, and he notes it started yesterday. He has a tendency to want to lie on his left side and I was trying to find out why he was doing that. He is a terrible historian and it is difficult to get answers from the patient. I suspect he has some fairly severe depression, along with his Parkinson's disease. He is in agreement to starting an antidepressant, and I did discuss with him that it will take a month to work. PLAN: We will go ahead and try him with a little bit of Sinemet tonight to see if that helps. We will go ahead and start him on some azithromycin 500 mg p.o. daily, some prednisone 40 mg p.o. daily. We will give him a DuoNeb nebulizer, although he is not really wheezing badly. Difficult to tell if the patient has an early pneumonia or not. He does have some questionable infiltrate on the left. He certainly does not have a lobar pneumonia and his white count again is pretty much normal, but he does have a fever and a potential infiltrate on the left, so we will probably go ahead and add some Rocephin to that, and we will go ahead and monitor his fever curve. We will admit him for observation tonight since his O2 saturation is 94%, but given his severe weakness and difficulty moving, we may end up needing to change him over to a full admit, but at this point, his labs and his vitals and his exam do not really seem too bad and certainly his O2 saturation is not requiring him to have oxygen at present. BRANDON/FOX ALIYAH
== END 2018-06-27 12:08 | disposition home or self-care (01) ==
LOC: LB.ED 14:01 → LB.MS 15:40 → UNDOADMOB 15:40 → LB.MS 17:48
PROVIDERS: ADMIT Family Medicine; ATTEND Family Medicine
DX: R53.1 Weakness (principal); J18.1 Lobar pneumonia, unspecified organism; G20 Parkinson's disease; J44.9 Chronic obstructive pulmonary disease, unspecified; M06.9 Rheumatoid arthritis, unspecified
CPT/HCPCS: 36415; 71046; 80053; 85025; 96365; 96366; 99285-25; A9270-GY; G0378; J0696; J7050; J7620-GY

== ENCOUNTER 2018-11-22 14:16 | Inpatient (IN) | payer MEDICARE, OTHER ==
[2018-11-22] MEDS ORDERED: Dextrose 5%-0.9% NaCl 1,000 ML IV SCH (16:00)
--- NOTE | 2018-11-22 16:10 | EDM.PDOC ---
ED HPI GENERAL MEDICAL PROBLEM - General Chief Complaint: General Stated Complaint: NOT FEEL WELL Time Seen by Provider: 11/22/18 14:30 Source of Information: Reports: Patient, Family History Limitations: Reports: No Limitations - History of Present Illness INITIAL COMMENTS - FREE TEXT/NARRATIVE: This is a 78yo M here for not feeling well. He states he has been weak, not eating or drinking well for the past few weeks. His states he has deferred coming into the clinic and now he is extremely weak. He denies any fever but did feel chills yesterday. - Related Data Allergies Allergy/AdvReac Type Severity Reaction Status Date / Time No Known Allergies Allergy Verified 11/22/18 14:32 Home Meds: Home Meds Fluticasone/Salmeterol [Advair 250-50 Diskus] 1 puff IH BID 10/12/14 [History] Folic Acid 1 mg PO DAILY 10/12/14 [History] Methotrexate Sodium [Methotrexate] 25 mg PO WEEKLY 10/12/14 [History] Omeprazole 20 mg PO DAILY 10/12/14 [History] Tiotropium [Spiriva Handihaler] 18 mcg IH DAILY 10/12/14 [History] Clobetasol Propionate [Temovate 0.05% Oint] 15 gm TP DAILY 01/21/18 [History] Biotin 10,000 mcg PO DAILY 03/30/18 [History] Calcium Carbonate/Vitamin D3 [Calcium 1,000 + D3 Caplet] 1 each PO DAILY [History] Cholecalciferol (Vitamin D3) [D3-2000] 2,000 units PO DAILY 03/30/18 [History] Vits A/C/E/B Complx/Min/Lutein [Lipotriad Caplet] 1 tab PO DAILY 03/30/18 [ History] Past Medical History HEENT History: Reports: Cataract, Macular Degeneration Respiratory History: Reports: COPD, Other (See Below) Other Respiratory History: asbestosis Gastrointestinal History: Reports: GERD, Hiatal Hernia Other Gastrointestinal History: hx of GERD, GI scope to be done oct 23, 2014 in [facility] Other Musculoskeletal History: hx of scolosis, spinal stenosis - Infectious Disease History Infectious Disease History: Reports: Chicken Pox, Mononucleosis, Mumps - Past Surgical History Respiratory Surgical History: Reports: None GI Surgical History: Reports: None Musculoskeletal Surgical History: Reports: None Social & Family History - Family History Family Medical History: Noncontributory - Tobacco Use Smoking Status *Q: Former Smoker Used Tobacco, but Quit: Yes Month/Year Tobacco Last Used: 35 - Caffeine Use Caffeine Use: Reports: Coffee, Soda - Recreational Drug Use Recreational Drug Use: No ED ROS GENERAL - Review of Systems Review Of Systems: ROS reveals no pertinent complaints other than HPI. ED EXAM, GENERAL - Physical Exam Exam: See Below Exam Limited By: No Limitations General Appearance: Alert, Mild Distress, Thin Eye Exam: Bilateral Eye: EOMI, PERRL Ears: Normal External Exam Nose: Normal Inspection Throat/Mouth: Normal Inspection Head: Atraumatic, Normocephalic Neck: Normal Inspection Respiratory/Chest: No Respiratory Distress, Lungs Clear, Normal Breath Sounds Cardiovascular: Normal Peripheral Pulses, Regular Rate, Rhythm Peripheral Pulses: 2+: Dorsalis Pedis (L), Dorsalis Pedis (R) GI/Abdominal: Normal Bowel Sounds, Soft, Non-Tender Extremities: Normal Inspection Neurological: Disoriented, Slow to Respond Psychiatric: Normal Affect, Normal Mood Skin Exam: Warm, Dry, Intact Course - Vital Signs Last Recorded V/S: Last Vital Signs Temp 37.8 C 11/22/18 16:54 Pulse 82 11/22/18 16:54 Resp 16 11/22/18 16:54 BP 126/68 11/22/18 16:54 Pulse Ox 94 L 11/22/18 16:54 - Orders/Labs/Meds Orders: Medication Orders Acetaminophen (Tylenol) 650 mg PO Q4H PRN PRN Reason: analgesia/fever Dextrose/Sodium Chloride (Dextrose 5%-Normal Saline) 1,000 mls @ 125 mls/hr IV ASDIRECTED SHE Stop: 11/22/18 23:59 Last Admin: 11/22/18 18:39 Dose: 125 mls/hr Labs: Laboratory Tests 11/22/18 11/22/18 Range/Units 14:36 14:36 WBC 10.9 D (4.0-11.0) K/uL RBC 3.97 L (4.50-6.50) M/uL Hgb 12.7 L (13.0-18.0) g/dL Hct 37.7 L (40.0-54.0) % MCV 95 (76-96) fL MCH 32.0 (27.0-32.0) pg MCHC 33.7 (31.0-35.0) g/dL RDW 15.7 (11.0-16.0) % Plt Count 259 D (150-400) K/uL MPV 10.0 (6.0-10.0) fL Neut % (Auto) 71.0 H (45.0-70.0) % Lymph % (Auto) 12.5 L (20.0-40.0) % [place] % (Auto) 16.1 H (3.0-10.0) % Eos % (Auto) 0.2 L (1.0-5.0) % Baso % (Auto) 0.2 (0.0-0.5) % Neut # (Auto) 7.75 H (2.00-7.50) K/uL Lymph # (Auto) 1.37 L (1.50-4.00) K/uL [place] # (Auto) 1.76 H (0.20-0.80) K/uL Eos # (Auto) 0.02 L (0.04-0.40) K/uL Baso # (Auto) 0.02 (0.02-0.10) K/uL Sodium 136 (136-145) mmol/L Potassium 4.2 (3.5-5.1) mmol/L Chloride 99 (98-107) mmol/L Carbon Dioxide 27.3 (21.0-32.0) mmol/L Anion Gap 13.9 (5.0-15.0) mmol/L BUN 27 H D (8-26) mg/dL Creatinine 1.22 D (0.70-1.30) mg/dL Est Cr Clr Drug Dosing 49.57 mL/min Estimated GFR (MDRD) 57 L (>60) MLS/MIN BUN/Creatinine Ratio 22.1 (6-25) Glucose 110 H D (74-100) mg/dL Calcium 10.4 H (8.5-10.1) mg/dL Total Bilirubin 1.2 H D (0.0-1.0) mg/dL AST 43 H (15-37) U/L ALT 31 (12-78) U/L Alkaline Phosphatase 74 (46-116) U/L Troponin I < 0.017 (0.000-0.060) ng/mL Total Protein 7.7 (6.4-8.2) g/dL Albumin 3.0 L (3.4-5.0) g/dL Globulin 4.7 H (2.2-4.2) g/dL Albumin/Globulin Ratio 0.6 L (0.8-2.0) TSH, Ultra Sensitive 2.748 (0.358-3.740) uIU/mL Meds: Medications Generic Name Dose Route Start Last Admin Trade Name Freq PRN Reason Stop Dose Admin Acetaminophen 650 mg 11/22/18 15:56 Tylenol PO Q4H PRN analgesia/fever Dextrose/Sodium Chloride 1,000 mls @ 125 mls/hr 11/22/18 16:00 11/22/18 18:39 Dextrose 5%-Normal Saline IV 11/22/18 23:59 125 mls/hr ASDIRECTED SHE Administration Departure - Departure Time of Disposition: 11:00 Disposition: Refer to Observation Condition: Fair Clinical Impression: Dehydration, Severe muscle deconditioning, Delirium - Discharge Information - Problem List & Annotations (1) Dehydration SNOMED Code(s): 91205508 Code(s): E86.0 - DEHYDRATION Status: Acute Priority: High Current Visit : Yes (2) Delirium SNOMED Code(s): 8540918 Code(s): R41.0 - DISORIENTATION, UNSPECIFIED Status: Acute Priority: High Current Visit: Yes (3) Severe muscle deconditioning SNOMED Code(s): 499979812 Code(s): R29.898 - OTH SYMPTOMS AND SIGNS INVOLVING THE MUSCULOSKELETAL SYSTEM Status: Acute Priority: High Current Visit: Yes - Problem List Review Problem List Initiated/Reviewed/Updated: Yes - Assessment/Plan Plan: Patient to be placed in observation for fluid resuscitation and monitoring. We will repeat labs in am and f/u. PT/OT evaluation and management.
[2018-11-23] MEDS: Acetaminophen 325 MG Tab PO PRN ×3 (04:26→20:35)
[2018-11-23] MEDS: Dextrose 5%-0.9% NaCl 1,000 ML IV SCH (04:30)
--- NOTE | 2018-11-23 09:53 | PCM.PN ---
- General Info Date of Service: 11/23/18 Subjective Update: Patient continues to feel weak and tired. He states this has been ongoing the past 3 or more weeks. He denies any pain or recent illness. - Review of Systems General: Reports: Weakness, Fatigue HEENT: Reports: No Symptoms Pulmonary: Reports: No Symptoms Cardiovascular: Reports: No Symptoms Gastrointestinal: Reports: No Symptoms Genitourinary: Reports: No Symptoms Musculoskeletal: Reports: No Symptoms Skin: Reports: No Symptoms Neurological: Reports: No Symptoms Psychiatric: Reports: No Symptoms - Patient Data Vitals - Most Recent: Last Vital Signs Temp 37.3 C 11/23/18 03:00 Pulse 73 11/23/18 03:00 Resp 20 11/23/18 03:00 BP 104/63 11/23/18 03:00 Pulse Ox 92 L 11/23/18 03:00 Weight - Most Recent: 73.437 kg Lab Results Last 24 Hours: Laboratory Results - last 24 hr 11/22/18 11/22/18 11/23/18 Range/Units 14:36 14:36 07:05 WBC 10.9 D 9.5 (4.0-11.0) K/uL RBC 3.97 L 3.28 L (4.50-6.50) M/uL Hgb 12.7 L 10.7 L (13.0-18.0) g/dL Hct 37.7 L 31.3 L (40.0-54.0) % MCV 95 95 (76-96) fL MCH 32.0 32.6 H (27.0-32.0) pg MCHC 33.7 34.2 (31.0-35.0) g/dL RDW 15.7 15.4 (11.0-16.0) % Plt Count 259 D 253 (150-400) K/uL MPV 10.0 9.9 (6.0-10.0) fL Neut % (Auto) 71.0 H 72.9 H (45.0-70.0) % Lymph % (Auto) 12.5 L 9.6 L (20.0-40.0) % [place] % (Auto) 16.1 H 17.2 H (3.0-10.0) % Eos % (Auto) 0.2 L 0.1 L (1.0-5.0) % Baso % (Auto) 0.2 0.2 (0.0-0.5) % Neut # (Auto) 7.75 H 6.89 (2.00-7.50) K/uL Lymph # (Auto) 1.37 L 0.91 L (1.50-4.00) K/uL [place] # (Auto) 1.76 H 1.63 H (0.20-0.80) K/uL Eos # (Auto) 0.02 L 0.01 L (0.04-0.40) K/uL Baso # (Auto) 0.02 0.02 (0.02-0.10) K/uL Sodium 136 (136-145) mmol/L Potassium 4.2 (3.5-5.1) mmol/L Chloride 99 (98-107) mmol/L Carbon Dioxide 27.3 (21.0-32.0) mmol/L Anion Gap 13.9 (5.0-15.0) mmol/L BUN 27 H D (8-26) mg/dL Creatinine 1.22 D (0.70-1.30) mg/dL Est Cr Clr Drug Dosing 49.57 mL/min Estimated GFR (MDRD) 57 L (>60) MLS/MIN BUN/Creatinine Ratio 22.1 (6-25) Glucose 110 H D (74-100) mg/dL Calcium 10.4 H (8.5-10.1) mg/dL Total Bilirubin 1.2 H D (0.0-1.0) mg/dL AST 43 H (15-37) U/L ALT 31 (12-78) U/L Alkaline Phosphatase 74 (46-116) U/L Troponin I < 0.017 (0.000-0.060) ng/mL Total Protein 7.7 (6.4-8.2) g/dL Albumin 3.0 L (3.4-5.0) g/dL Globulin 4.7 H (2.2-4.2) g/dL Albumin/Globulin Ratio 0.6 L (0.8-2.0) TSH, Ultra Sensitive 2.748 (0.358-3.740) uIU/mL 11/23/18 Range/Units 07:05 WBC (4.0-11.0) K/uL RBC (4.50-6.50) M/uL Hgb (13.0-18.0) g/dL Hct (40.0-54.0) % MCV (76-96) fL MCH (27.0-32.0) pg MCHC (31.0-35.0) g/dL RDW (11.0-16.0) % Plt Count (150-400) K/uL MPV (6.0-10.0) fL Neut % (Auto) (45.0-70.0) % Lymph % (Auto) (20.0-40.0) % [place] % (Auto) (3.0-10.0) % Eos % (Auto) (1.0-5.0) % Baso % (Auto) (0.0-0.5) % Neut # (Auto) (2.00-7.50) K/uL Lymph # (Auto) (1.50-4.00) K/uL [place] # (Auto) (0.20-0.80) K/uL Eos # (Auto) (0.04-0.40) K/uL Baso # (Auto) (0.02-0.10) K/uL Sodium 139 (136-145) mmol/L Potassium 3.6 (3.5-5.1) mmol/L Chloride 105 (98-107) mmol/L Carbon Dioxide 23.7 (21.0-32.0) mmol/L Anion Gap 13.9 (5.0-15.0) mmol/L BUN 21 D (8-26) mg/dL Creatinine 1.07 (0.70-1.30) mg/dL Est Cr Clr Drug Dosing 57.19 mL/min Estimated GFR (MDRD) > 60 (>60) MLS/MIN BUN/Creatinine Ratio 19.6 (6-25) Glucose 137 H (74-100) mg/dL Calcium 8.5 (8.5-10.1) mg/dL Total Bilirubin 1.0 (0.0-1.0) mg/dL AST 49 H (15-37) U/L ALT 34 (12-78) U/L Alkaline Phosphatase 61 (46-116) U/L Troponin I (0.000-0.060) ng/mL Total Protein 6.3 L (6.4-8.2) g/dL Albumin 2.3 L (3.4-5.0) g/dL Globulin 4.0 (2.2-4.2) g/dL Albumin/Globulin Ratio 0.6 L (0.8-2.0) TSH, Ultra Sensitive (0.358-3.740) uIU/mL Med Orders - Current: Current Medications Acetaminophen (Tylenol) 650 mg PO Q4H PRN PRN Reason: analgesia/fever Last Admin: 11/23/18 04:26 Dose: 650 mg Cholecalciferol (Vitamin D3) 2,000 unit PO DAILY SHE Folic Acid (Folic Acid) 1 mg PO DAILY SHE Dextrose/Sodium Chloride (Dextrose 5%-Normal Saline) 1,000 mls @ 100 mls/hr IV ASDIRECTED SHE Last Admin: 11/23/18 04:30 Dose: 100 mls/hr Non-Formulary Medication (Biotin [Biotin]) 10,000 mcg PO DAILY [facility] Non-Formulary Medication (Calcium Carbonate/Vitamin D3 [Calcium 1,000 + D3 Caplet]) 1 each PO DAILY SHE Non-Formulary Medication (Clobetasol Propionate [Temovate 0.05% Oint]) 15 gm TP DAILY [facility] Non-Formulary Medication (Fluticasone/Salmeterol [Advair 250-50 Diskus]) 1 puff IH BID SHE Non-Formulary Medication (Vits A/C/E/B Complx/Min/Lutein [Lipotriad Caplet]) 1 tab PO DAILY SHE Omeprazole (Omeprazole) 20 mg PO DAILY [facility] Tiotropium [place] (Spiriva Handihaler) 18 mcg INH DAILY [facility] Discontinued Medications Dextrose/Sodium Chloride (Dextrose 5%-Normal Saline) 1,000 mls @ 125 mls/hr IV ASDIRECTED SHE Stop: 11/22/18 23:59 Last Admin: 11/22/18 18:39 Dose: 125 mls/hr - Exam General: Alert, Oriented, Cooperative HEENT: Pupils Equal, Pupils Reactive, EOMI Neck: Supple Lungs: Clear to Auscultation, Normal Respiratory Effort Cardiovascular: Regular Rate, Regular Rhythm GI/Abdominal Exam: Normal Bowel Sounds Back Exam: Normal Inspection Extremities: Normal Inspection - Problem List & Annotations (1) Dehydration SNOMED Code(s): 97736348 Code(s): E86.0 - DEHYDRATION Status: Acute Priority: High Current Visit : Yes (2) Delirium SNOMED Code(s): 7842274 Code(s): R41.0 - DISORIENTATION, UNSPECIFIED Status: Acute Priority: High Current Visit: Yes (3) Severe muscle deconditioning SNOMED Code(s): 946036942 Code(s): R29.898 - OTH SYMPTOMS AND SIGNS INVOLVING THE MUSCULOSKELETAL SYSTEM Status: Acute Priority: High Current Visit: Yes - Problem List Review Problem List Initiated/Reviewed/Updated: Yes - My Orders Last 24 Hours: My Active Orders 11/22/18 15:56 Patient Status [ADT] Routine Up With Assistance [RC] ASDIRECTED Vital Signs [RC] Q4H Acetaminophen [Tylenol] 650 mg PO Q4H PRN 11/22/18 19:10 Consult to Occupational Therapy [OT Evaluation and Treatment] [CONS] Routine Consult to Physical Therapy [PT Evaluation and Treatment] [CONS] Routine 11/23/18 04:45 Dextrose 5%-0.9% NaCl [Dextrose 5%-Normal Saline] 1,000 ml IV ASDIRECTED 11/23/18 09:50 Chest 1V Frontal [CR] Routine CMV ABS IGG/IGM Routine EBV ACUTE INFECTION ANTIBODIES Routine 11/23/18 20:00 Fluticasone/Salmeterol [Advair 250-50 Diskus] 1 puff IH BID 11/24/18 08:00 Biotin [Biotin] 10,000 mcg PO DAILY Calcium Carbonate/Vitamin D3 [Calcium 1,000 + D3 Caplet] 1 each PO DAILY Cholecalciferol (Vitamin D3) [Vitamin D3] 2,000 unit PO DAILY Clobetasol Propionate [Temovate 0.05% Oint] 15 gm TP DAILY Folic Acid 1 mg PO DAILY Omeprazole 20 mg PO DAILY Tiotropium [Spiriva HandiHaler] 18 mcg INH DAILY Vits A/C/E/B Complx/Min/Lutein [Lipotriad Caplet] 1 tab PO DAILY - Plan Plan:: 11/23/18 Patient labs ordered. Hep lock at this time. PT/OT evaluation for weakness or other concerns. Discussed normal labs to date - consider a viral infection - EBV and CMV ordered.
[2018-11-23] MEDS ORDERED: Levofloxacin 750 MG Tab PO SCH (11:15)
--- NOTE | 2018-11-23 15:25 | CR ---
DATE OF SERVICE: 11/23/18 CLINICAL DATA: Cough AP PORTABLE CHEST: Comparison is made to a prior exam dated 06/25/18. The patient has taken a very poor inspiration. The heart remains enlarged, unchanged. There is calcification of the aortic arch. There is a patchy density in the right mid lung laterally and there is increased density in the left lung base, consistent with infiltrate or atelectasis. Pneumonia should be considered. There is blunting of both costophrenic angles suggesting small bilateral pleural effusions. The pulmonary vasculature appears prominent. The exam is otherwise unchanged from the prior. [id number] [facility]
[2018-11-23] MEDS: Non-Formulary Medication 1 Each (Fluticasone/Salmeterol [Advair 250-50 Diskus] 1 PUFF) IH SCH (20:35)
[2018-11-24] MEDS: Non-Formulary Medication 1 Each (Fluticasone/Salmeterol [Advair 250-50 Diskus] 1 PUFF) IH SCH ×2 (08:31→20:00)
[2018-11-24] MEDS: Non-Formulary Medication 1 Each (Biotin [Biotin] 10,000 MCG) PO SCH (08:31)
[2018-11-24] MEDS: Tiotropium Inhaler 18 MCG Inhalation Powder Cap Kit of 5 INH SCH ×3 (08:32→20:00)
[2018-11-24] MEDS: Omeprazole 20 MG Cap.CR PO SCH (08:32)
[2018-11-24] MEDS: Folic Acid 1 MG Tab PO SCH (08:32)
[2018-11-24] MEDS: Cholecalciferol (Vitamin D3) 2,000 Unit Cap PO SCH (08:33)
--- NOTE | 2018-11-24 08:36 | PCM.PN ---
- General Info Date of Service: 11/24/18 Subjective Update: This is a 78yo M with continued congestion and cough with generalized weakness. He appears weak and very deconditioned. He has a productive cough and sputum production. - Review of Systems General: Reports: Weakness, Fatigue HEENT: Reports: No Symptoms Pulmonary: Reports: Cough, Sputum Cardiovascular: Reports: No Symptoms Gastrointestinal: Reports: No Symptoms Genitourinary: Reports: No Symptoms Musculoskeletal: Reports: No Symptoms Skin: Reports: No Symptoms Neurological: Reports: Difficulty Walking, Weakness Psychiatric: Reports: No Symptoms - Patient Data Vitals - Most Recent: Last Vital Signs Temp 37.6 C 11/24/18 07:33 Pulse 70 11/24/18 07:33 Resp 18 11/24/18 07:33 BP 139/78 11/24/18 07:33 Pulse Ox 93 L 11/24/18 07:33 Weight - Most Recent: 73.437 kg I&O - Last 24 Hours: Intake & Output 11/23/18 11/24/18 11/24/18 22:59 06:59 14:59 Intake Total 200 Output Total 351 Balance -151 Lab Results Last 24 Hours: Laboratory Results - last 24 hr 11/24/18 11/24/18 Range/Units 07:20 07:20 WBC 10.0 (4.0-11.0) K/uL RBC 3.38 L (4.50-6.50) M/uL Hgb 10.7 L (13.0-18.0) g/dL Hct 32.3 L (40.0-54.0) % MCV 96 (76-96) fL MCH 31.7 (27.0-32.0) pg MCHC 33.1 (31.0-35.0) g/dL RDW 15.5 (11.0-16.0) % Plt Count 278 (150-400) K/uL MPV 10.3 H (6.0-10.0) fL Neut % (Auto) 78.4 H (45.0-70.0) % Lymph % (Auto) 9.7 L (20.0-40.0) % [place] % (Auto) 10.7 H (3.0-10.0) % Eos % (Auto) 1.0 (1.0-5.0) % Baso % (Auto) 0.2 (0.0-0.5) % Neut # (Auto) 7.86 H (2.00-7.50) K/uL Lymph # (Auto) 0.97 L (1.50-4.00) K/uL [place] # (Auto) 1.07 H (0.20-0.80) K/uL Eos # (Auto) 0.10 (0.04-0.40) K/uL Baso # (Auto) 0.02 (0.02-0.10) K/uL Sodium 139 (136-145) mmol/L Potassium 3.9 (3.5-5.1) mmol/L Chloride 105 (98-107) mmol/L Carbon Dioxide 25.2 (21.0-32.0) mmol/L Anion Gap 12.7 (5.0-15.0) mmol/L BUN 16 D (8-26) mg/dL Creatinine 0.82 D (0.70-1.30) mg/dL Est Cr Clr Drug Dosing 74.63 mL/min Estimated GFR (MDRD) > 60 (>60) MLS/MIN BUN/Creatinine Ratio 19.5 (6-25) Glucose 96 (74-100) mg/dL Calcium 8.5 (8.5-10.1) mg/dL [place] Results Last 24 Hours: Microbiology 11/22/18 Unknown MRSA Surveillance Culture - Final Nose, Unspecified NO MRSA ISOLATED Med Orders - Current: Current Medications Acetaminophen (Tylenol) 650 mg PO Q4H PRN PRN Reason: analgesia/fever Last Admin: 11/23/18 20:35 Dose: 650 mg Cholecalciferol (Vitamin D3) 2,000 unit PO DAILY [facility] Last Admin: 11/24/18 08:33 Dose: 2,000 unit Folic Acid (Folic Acid) 1 mg PO DAILY [facility] Last Admin: 11/24/18 08:32 Dose: 1 mg Dextrose/Sodium Chloride (Dextrose 5%-Normal Saline) 1,000 mls @ 100 mls/hr IV ASDIRECTED [facility] Last Admin: 11/23/18 04:30 Dose: 100 mls/hr Levofloxacin (Levaquin) 750 mg PO Q24H [facility] Stop: 11/27/18 12:00 Last Admin: 11/23/18 11:24 Dose: 750 mg Non-Formulary Medication (Biotin [Biotin]) 10,000 mcg PO DAILY [facility] Last Admin: 11/24/18 08:31 Dose: 10,000 mcg Non-Formulary Medication (Calcium Carbonate/Vitamin D3 [Calcium 1,000 + D3 Caplet]) 1 each PO DAILY [facility] Last Admin: 11/24/18 08:31 Dose: 1 each Non-Formulary Medication (Clobetasol Propionate [Temovate 0.05% Oint]) 15 gm TP DAILY [facility] Non-Formulary Medication (Fluticasone/Salmeterol [Advair 250-50 Diskus]) 1 puff IH BID [facility] Last Admin: 11/24/18 08:31 Dose: 1 puff Non-Formulary Medication (Vits A/C/E/B Complx/Min/Lutein [Lipotriad Caplet]) 1 tab PO DAILY [facility] Omeprazole (Omeprazole) 20 mg PO DAILY [facility] Last Admin: 11/24/18 08:32 Dose: [address] (Spiriva Handihaler) 18 mcg INH DAILY [facility] Last Admin: 11/24/18 08:32 Dose: 18 mcg Discontinued Medications Dextrose/Sodium Chloride (Dextrose 5%-Normal Saline) 1,000 mls @ 125 mls/hr IV ASDIRECTED [facility] Stop: 11/22/18 23:59 Last Admin: 11/22/18 18:39 Dose: 125 mls/hr - Exam General: Alert, Oriented, Cooperative, No Acute Distress HEENT: Pupils Equal, Pupils Reactive, EOMI Neck: Supple Lungs: Decreased Breath Sounds, Rhonchi GI/Abdominal Exam: Normal Bowel Sounds, Soft, Non-Tender Back Exam: Normal Inspection Extremities: Normal Inspection Peripheral Pulses: 2+: Dorsalis Pedis (L), Dorsalis Pedis (R) Skin: Warm, Dry, Intact - Problem List & Annotations (1) Dehydration SNOMED Code(s): 29128867 Code(s): E86.0 - DEHYDRATION Status: Acute Priority: High Current Visit : Yes (2) Delirium SNOMED Code(s): 8526132 Code(s): R41.0 - DISORIENTATION, UNSPECIFIED Status: Acute Priority: High Current Visit: Yes (3) Severe muscle deconditioning SNOMED Code(s): 534041337 Code(s): R29.898 - OTH SYMPTOMS AND SIGNS INVOLVING THE MUSCULOSKELETAL SYSTEM Status: Acute Priority: High Current Visit: Yes (4) Pneumonia SNOMED Code(s): 856661144 Code(s): J18.9 - PNEUMONIA, UNSPECIFIED ORGANISM Status: Acute Priority: High Current Visit: Yes Qualifiers: Pneumonia type: due to Klebsiella pneumoniae Laterality: right Lung location: middle lobe of lung Qualified Code(s): J15.0 - Pneumonia due to Klebsiella pneumoniae - Problem List Review Problem List Initiated/Reviewed/Updated: Yes - My Orders Last 24 Hours: My Active Orders 11/23/18 10:00 CMV ABS IGG/IGM Routine EBV ACUTE INFECTION ANTIBODIES Routine 11/23/18 11:15 levoFLOXacin [Levaquin] 750 mg PO Q24H 11/23/18 11:27 CULTURE SPUTUM + SMEAR [RM] Routine 11/23/18 20:00 Fluticasone/Salmeterol [Advair 250-50 Diskus] 1 puff IH BID 11/24/18 08:00 Biotin [Biotin] 10,000 mcg PO DAILY Calcium Carbonate/Vitamin D3 [Calcium 1,000 + D3 Caplet] 1 each PO DAILY Cholecalciferol (Vitamin D3) [Vitamin D3] 2,000 unit PO DAILY Clobetasol Propionate [Temovate 0.05% Oint] 15 gm TP DAILY Folic Acid 1 mg PO DAILY Omeprazole 20 mg PO DAILY Tiotropium [Spiriva HandiHaler] 18 mcg INH DAILY Vits A/C/E/B Complx/Min/Lutein [Lipotriad Caplet] 1 tab PO DAILY - Plan Plan:: 11/23/18 Patient labs ordered. Hep lock at this time. PT/OT evaluation for weakness or other concerns. Discussed normal labs to date - consider a viral infection - EBV and CMV ordered. 11/24/18 Patient symptoms are likely due in part from a Pneumonia shown on X- ray. We will place patient into Inpatient Admit and start on IV antibiotics. PT/OT evaluation as well. F/u labs as routine and daily labs as routine. F/u blood cultures.
[2018-11-24] MEDS: CLOBETASOL PROPIONATE TP SCH (08:37)
[2018-11-24] MEDS: [UNRECOGNIZED DRUG - OTHER] PO SCH (08:53)
[2018-11-24] MEDS: LUTEIN PO SCH (08:53)
[2018-11-24] MEDS: VITS A PO SCH (08:53)
[2018-11-24] MEDS: Acetaminophen 325 MG Tab PO PRN ×2 (10:57→21:57)
[2018-11-24] MEDS ORDERED: Levofloxacin/Dextrose 5%-Water 150 ML IV ONE (11:42)
[2018-11-24] MEDS: Levofloxacin/Dextrose 5%-Water 750 MG in Premix Bag 1 BAG IV SCH (12:03)
[2018-11-25] MEDS: Omeprazole 20 MG Cap.CR PO SCH (07:48)
[2018-11-25] MEDS: Folic Acid 1 MG Tab PO SCH (07:48)
[2018-11-25] MEDS: Cholecalciferol (Vitamin D3) 2,000 Unit Cap PO SCH (07:48)
[2018-11-25] MEDS: Non-Formulary Medication 1 Each (Biotin [Biotin] 10,000 MCG) PO SCH (07:52)
[2018-11-25] MEDS: CLOBETASOL PROPIONATE TP SCH (07:53)
[2018-11-25] MEDS: VITS A PO SCH (07:54)
[2018-11-25] MEDS: [UNRECOGNIZED DRUG - OTHER] PO SCH (07:54)
[2018-11-25] MEDS: LUTEIN PO SCH (07:54)
[2018-11-25] MEDS: Non-Formulary Medication 1 Each (Fluticasone/Salmeterol [Advair 250-50 Diskus] 1 PUFF) IH SCH ×2 (07:56→20:19)
--- NOTE | 2018-11-25 11:09 | PCM.PN ---
- General Info Date of Service: 11/25/18 Subjective Update: Patient states he has improved slightly. He states his last time he felt really well was 6 years ago. He states he started to feel really weak a few weeks ago and just got weaker and weaker. Functional Status: Reports: Pain Controlled, Tolerating Diet, Ambulating - Review of Systems General: Reports: Weakness, Fatigue HEENT: Reports: No Symptoms Pulmonary: Reports: Cough Cardiovascular: Reports: No Symptoms Gastrointestinal: Reports: No Symptoms Genitourinary: Reports: No Symptoms Musculoskeletal: Reports: No Symptoms Skin: Reports: No Symptoms Neurological: Reports: Weakness - Patient Data Vitals - Most Recent: Last Vital Signs Temp 37.1 C 11/25/18 08:00 Pulse 74 11/25/18 08:00 Resp 20 11/25/18 08:00 BP 113/62 11/25/18 08:00 Pulse Ox 97 11/25/18 08:00 Weight - Most Recent: 73.437 kg I&O - Last 24 Hours: Intake & Output 11/24/18 11/25/18 11/25/18 22:59 06:59 14:59 Intake Total 340 Output Total 700 Balance -360 Lab Results Last 24 Hours: Laboratory Results - last 24 hr 11/25/18 11/25/18 Range/Units 07:23 07:23 WBC 9.3 (4.0-11.0) K/uL RBC 3.08 L (4.50-6.50) M/uL Hgb 9.9 L (13.0-18.0) g/dL Hct 29.3 L (40.0-54.0) % MCV 95 (76-96) fL MCH 32.1 H (27.0-32.0) pg MCHC 33.8 (31.0-35.0) g/dL RDW 15.3 (11.0-16.0) % Plt Count 310 (150-400) K/uL MPV 10.2 H (6.0-10.0) fL Neut % (Auto) 72.2 H (45.0-70.0) % Lymph % (Auto) 13.8 L (20.0-40.0) % [place] % (Auto) 11.2 H (3.0-10.0) % Eos % (Auto) 2.6 (1.0-5.0) % Baso % (Auto) 0.2 (0.0-0.5) % Neut # (Auto) 6.68 (2.00-7.50) K/uL Lymph # (Auto) 1.28 L (1.50-4.00) K/uL [place] # (Auto) 1.04 H (0.20-0.80) K/uL Eos # (Auto) 0.24 (0.04-0.40) K/uL Baso # (Auto) 0.02 (0.02-0.10) K/uL Sodium 138 (136-145) mmol/L Potassium 3.7 (3.5-5.1) mmol/L Chloride 102 (98-107) mmol/L Carbon Dioxide 25.9 (21.0-32.0) mmol/L Anion Gap 13.8 (5.0-15.0) mmol/L BUN 13 (8-26) mg/dL Creatinine 0.84 (0.70-1.30) mg/dL Est Cr Clr Drug Dosing 72.85 mL/min Estimated GFR (MDRD) > 60 (>60) MLS/MIN BUN/Creatinine Ratio 15.5 (6-25) Glucose 94 (74-100) mg/dL Calcium 8.6 (8.5-10.1) mg/dL [place]rel Results Last 24 Hours: Microbiology 11/24/18 09:55 Aerobic Blood Culture - Preliminary Blood NO GROWTH AFTER 1 DAY Anaerobic Blood Culture - Preliminary NO GROWTH AFTER 1 DAY 11/24/18 09:45 Aerobic Blood Culture - Preliminary Blood NO GROWTH AFTER 1 DAY Anaerobic Blood Culture - Preliminary NO GROWTH AFTER 1 DAY 11/23/18 11:27 Gram Stain - Final Sputum - Expectorated Sputum Culture - Final Klebsiella Oxytoca Med Orders - Current: Current Medications Acetaminophen (Tylenol) 650 mg PO Q4H PRN PRN Reason: analgesia/fever Last Admin: 11/24/18 21:57 Dose: 650 mg Cholecalciferol (Vitamin D3) 2,000 unit PO DAILY [facility] Last Admin: 11/25/18 07:48 Dose: 2,000 unit Folic Acid (Folic Acid) 1 mg PO DAILY [facility] Last Admin: 11/25/18 07:48 Dose: 1 mg Dextrose/Sodium Chloride (Dextrose 5%-Normal Saline) 1,000 mls @ 100 mls/hr IV ASDIRECTED [facility] Last Admin: 11/23/18 04:30 Dose: 100 mls/hr Levofloxacin/Dextrose 750 mg/ (Premix) 150 mls @ 100 mls/hr IV Q24H [facility] Stop: 11/28/18 10:59 Last Admin: 11/24/18 12:03 Dose: 100 mls/hr Non-Formulary Medication (Biotin [Biotin]) 10,000 mcg PO DAILY [facility] Last Admin: 11/25/18 07:52 Dose: 10,000 mcg Non-Formulary Medication (Calcium Carbonate/Vitamin D3 [Calcium 1,000 + D3 Caplet]) 1 each PO DAILY [facility] Last Admin: 11/25/18 07:52 Dose: 1 each Non-Formulary Medication (Clobetasol Propionate [Temovate 0.05% Oint]) 15 gm TP DAILY [facility] Last Admin: 11/25/18 07:53 Dose: Not Given Non-Formulary Medication (Fluticasone/Salmeterol [Advair 250-50 Diskus]) 1 puff IH BID [facility] Last Admin: 11/25/18 07:56 Dose: 1 puff Non-Formulary Medication (Vits A/C/E/B Complx/Min/Lutein [Lipotriad Caplet]) 1 tab PO DAILY [facility] Last Admin: 11/25/18 07:54 Dose: Not Given Omeprazole (Omeprazole) 20 mg PO DAILY [facility] Last Admin: 11/25/18 07:48 Dose: 20 mg Tiotropium [place] (Spiriva Handihaler) 18 mcg INH BEDTIME [facility] Last Admin: 11/24/18 20:00 Dose: 18 mcg Discontinued Medications Dextrose/Sodium Chloride (Dextrose 5%-Normal Saline) 1,000 mls @ 125 mls/hr IV ASDIRECTED [facility] Stop: 11/22/18 23:59 Last Admin: 11/22/18 18:39 Dose: 125 mls/hr Levofloxacin/Dextrose (Levaquin In D5w 750 Mg/150 Ml) Confirm Administered Dose 150 mls @ as directed IV .STK-MED ONE Stop: 11/24/18 11:43 Last Admin: 11/24/18 14:26 Dose: Not Given Levofloxacin (Levaquin) 750 mg PO Q24H [facility] Stop: 11/27/18 12:00 Last Admin: 11/23/18 11:24 Dose: 750 mg Tiotropium [place] (Spiriva Handihaler) 18 mcg INH DAILY [facility] Last Admin: 11/24/18 19:30 Dose: Not Given - Exam General: Alert, Oriented, Cooperative HEENT: Pupils Equal, Pupils Reactive Neck: Supple Lungs: Decreased Breath Sounds, Rhonchi Cardiovascular: Regular Rate, Regular Rhythm GI/Abdominal Exam: Normal Bowel Sounds Back Exam: Normal Inspection Extremities: Normal Inspection Peripheral Pulses: 2+: Dorsalis Pedis (L), Dorsalis Pedis (R) Skin: Warm, Dry, Intact Neurological: No New Focal Deficit - Problem List & Annotations (1) Dehydration SNOMED Code(s): 81806482 Code(s): E86.0 - DEHYDRATION Status: Resolved Priority: High Current Visit: Yes (2) Delirium SNOMED Code(s): 2266340 Code(s): R41.0 - DISORIENTATION, UNSPECIFIED Status: Resolved Priority: High Current Visit: Yes (3) Severe muscle deconditioning SNOMED Code(s): 997107656 Code(s): R29.898 - [facility] SYMPTOMS AND SIGNS INVOLVING THE MUSCULOSKELETAL SYSTEM Status: Acute Priority: High Current Visit: Yes (4) Pneumonia SNOMED Code(s): 511841901 Code(s): J18.9 - PNEUMONIA, UNSPECIFIED ORGANISM Status: Acute Priority: High Current Visit: Yes Qualifiers: Pneumonia type: due to Klebsiella pneumoniae Laterality: right Lung location: middle lobe of lung Qualified Code(s): J15.0 - Pneumonia due to Klebsiella pneumoniae - Problem List Review Problem List Initiated/Reviewed/Updated: Yes - My Orders Last 24 Hours: My Active Orders 11/24/18 09:55 CULTURE BLOOD [BC] Routine 11/24/18 20:00 Tiotropium [Spiriva HandiHaler] 18 mcg INH BEDTIME 11/24/18 Dinner Regular Diet [DIET] 11/26/18 05:11 BASIC METABOLIC PANEL,BMP [CHEM] AM CBC WITH AUTO DIFF [HEME] AM 11/27/18 05:11 BASIC METABOLIC PANEL,BMP [CHEM] AM CBC WITH AUTO DIFF [HEME] AM - Plan Plan:: 11/23/18 Patient labs ordered. Hep lock at this time. PT/OT evaluation for weakness or other concerns. Discussed normal labs to date - consider a viral infection - EBV and CMV ordered. 11/24/18 Patient symptoms are likely due in part from a Pneumonia shown on X- ray. We will place patient into Inpatient Admit and start on IV antibiotics. PT/OT evaluation as well. F/u labs as routine and daily labs as routine. F/u blood cultures. 11/25/18 Patient to continue on current antibiotics. He will need PT/OT for strength and ambulation. F/u labs in AM.
[2018-11-25] MEDS ORDERED: Levofloxacin/Dextrose 5%-Water 150 ML IV ONE (11:18)
[2018-11-25] MEDS: Levofloxacin/Dextrose 5%-Water 750 MG in Premix Bag 1 BAG IV SCH (11:19)
[2018-11-25] MEDS: Acetaminophen 325 MG Tab PO PRN (15:49)
[2018-11-25] MEDS: Dextrose 5%-0.9% NaCl 1,000 ML IV SCH (17:22)
[2018-11-25] MEDS: Lactobacillus Acidophilus/Lactobacillus Sporogenes (Probiotic) Tab PO SCH (17:22)
[2018-11-25] MEDS: Tiotropium Inhaler 18 MCG Inhalation Powder Cap Kit of 5 INH SCH (20:20)
[2018-11-26] MEDS: Dextrose 5%-0.9% NaCl 1,000 ML IV SCH ×2 (03:16→14:54)
[2018-11-26] MEDS ORDERED: Lactobacillus Acidophilus/Lactobacillus Sporogenes (Probiotic) Tab ONE (07:34)
[2018-11-26] MEDS ORDERED: Folic Acid 1 MG Tab ONE (07:41)
[2018-11-26] MEDS ORDERED: Omeprazole 20 MG Cap.CR ONE (07:43)
[2018-11-26] MEDS ORDERED: Cholecalciferol (Vitamin D3) 2,000 Unit Cap ONE (07:44)
[2018-11-26] MEDS: Non-Formulary Medication 1 Each (Fluticasone/Salmeterol [Advair 250-50 Diskus] 1 PUFF) IH SCH ×2 (08:21→20:27)
[2018-11-26] MEDS: CLOBETASOL PROPIONATE TP SCH (08:21)
[2018-11-26] MEDS: Omeprazole 20 MG Cap.CR PO SCH (08:21)
[2018-11-26] MEDS: Folic Acid 1 MG Tab PO SCH (08:22)
[2018-11-26] MEDS: VITS A PO SCH (08:23)
[2018-11-26] MEDS: Lactobacillus Acidophilus/Lactobacillus Sporogenes (Probiotic) Tab PO SCH (08:23)
[2018-11-26] MEDS: [UNRECOGNIZED DRUG - OTHER] PO SCH (08:23)
[2018-11-26] MEDS: Non-Formulary Medication 1 Each (Biotin [Biotin] 10,000 MCG) PO SCH (08:23)
[2018-11-26] MEDS: LUTEIN PO SCH (08:23)
[2018-11-26] MEDS: Cholecalciferol (Vitamin D3) 2,000 Unit Cap PO SCH (08:29)
--- NOTE | 2018-11-26 09:34 | PCM.PN ---
- General Info Date of Service: 11/26/18 Subjective Update: Patient has had some improvement. His cough has improved. He remains very weak and has difficulty getting out of bed without assistance. Functional Status: Reports: Tolerating Diet - Review of Systems General: Reports: Weakness HEENT: Reports: No Symptoms Pulmonary: Reports: No Symptoms Cardiovascular: Reports: No Symptoms Gastrointestinal: Reports: No Symptoms Genitourinary: Reports: No Symptoms Musculoskeletal: Reports: No Symptoms Skin: Reports: No Symptoms Neurological: Reports: Difficulty Walking, Weakness Psychiatric: Reports: No Symptoms - Patient Data Vitals - Most Recent: Last Vital Signs Temp 37.8 C 11/26/18 08:34 Pulse 75 11/26/18 08:34 Resp 19 11/26/18 08:34 BP 125/65 11/26/18 08:34 Pulse Ox 95 11/26/18 08:34 Weight - Most Recent: 76.572 kg I&O - Last 24 Hours: Intake & Output 11/25/18 11/26/18 11/26/18 22:59 06:59 14:59 Intake Total 980 1855 Output Total 225 1525 Balance 755 330 Lab Results Last 24 Hours: Laboratory Results - last 24 hr 11/26/18 11/26/18 Range/Units 07:50 07:50 WBC 7.7 (4.0-11.0) K/uL RBC 3.00 L (4.50-6.50) M/uL Hgb 9.5 L (13.0-18.0) g/dL Hct 28.6 L (40.0-54.0) % MCV 95 (76-96) fL MCH 31.7 (27.0-32.0) pg MCHC 33.2 (31.0-35.0) g/dL RDW 15.7 (11.0-16.0) % Plt Count 345 (150-400) K/uL MPV 10.1 H (6.0-10.0) fL Neut % (Auto) 65.3 (45.0-70.0) % Lymph % (Auto) 16.2 L (20.0-40.0) % [place] % (Auto) 14.5 H (3.0-10.0) % Eos % (Auto) 3.7 (1.0-5.0) % Baso % (Auto) 0.3 (0.0-0.5) % Neut # (Auto) 5.00 (2.00-7.50) K/uL Lymph # (Auto) 1.24 L (1.50-4.00) K/uL [place] # (Auto) 1.11 H (0.20-0.80) K/uL Eos # (Auto) 0.28 (0.04-0.40) K/uL Baso # (Auto) 0.02 (0.02-0.10) K/uL Sodium 140 (136-145) mmol/L Potassium 3.7 (3.5-5.1) mmol/L Chloride 106 (98-107) mmol/L Carbon Dioxide 25.8 (21.0-32.0) mmol/L Anion Gap 11.9 (5.0-15.0) mmol/L BUN 11 (8-26) mg/dL Creatinine 0.85 (0.70-1.30) mg/dL Est Cr Clr Drug Dosing 72.00 mL/min Estimated GFR (MDRD) > 60 (>60) MLS/MIN BUN/Creatinine Ratio 12.9 (6-25) Glucose 100 (74-100) mg/dL Calcium 8.1 L (8.5-10.1) mg/dL Jerel Results Last 24 Hours: Microbiology 11/24/18 09:55 Aerobic Blood Culture - Preliminary Blood NO GROWTH AFTER 1 DAY Anaerobic Blood Culture - Preliminary NO GROWTH AFTER 1 DAY 11/24/18 09:45 Aerobic Blood Culture - Preliminary Blood NO GROWTH AFTER 1 DAY Anaerobic Blood Culture - Preliminary NO GROWTH AFTER 1 DAY 11/23/18 11:27 Gram Stain - Final Sputum - Expectorated Sputum Culture - Final Klebsiella Oxytoca Med Orders - Current: Current Medications Acetaminophen (Tylenol) 650 mg PO Q4H PRN PRN Reason: analgesia/fever Last Admin: 11/25/18 15:49 Dose: 650 mg Cholecalciferol (Vitamin D3) 2,000 unit PO DAILY [facility] Last Admin: 11/26/18 08:29 Dose: 2,000 unit Folic Acid (Folic Acid) 1 mg PO DAILY [facility] Last Admin: 11/26/18 08:22 Dose: 1 mg Dextrose/Sodium Chloride (Dextrose 5%-Normal Saline) 1,000 mls @ 100 mls/hr IV ASDIRECTED [facility] Last Admin: 11/26/18 03:16 Dose: 100 mls/hr Levofloxacin/Dextrose 750 mg/ (Premix) 150 mls @ 100 mls/hr IV Q24H [facility] Stop: 11/28/18 10:59 Last Admin: 11/25/18 11:19 Dose: 100 mls/hr Lactobacillus Acidophilus (Acidolphilus Extra Strength) 1 tab PO DAILY [facility] Last Admin: 11/26/18 08:23 Dose: 1 tab Non-Formulary Medication (Biotin [Biotin]) 10,000 mcg PO DAILY [facility] Last Admin: 11/26/18 08:23 Dose: 10,000 mcg Non-Formulary Medication (Calcium Carbonate/Vitamin D3 [Calcium 1,000 + D3 Caplet]) 1 each PO DAILY [facility] Last Admin: 11/26/18 08:22 Dose: 1 each Non-Formulary Medication (Clobetasol Propionate [Temovate 0.05% Oint]) 15 gm TP DAILY [facility] Last Admin: 11/26/18 08:21 Dose: Not Given Non-Formulary Medication (Fluticasone/Salmeterol [Advair 250-50 Diskus]) 1 puff IH BID [facility] Last Admin: 11/26/18 08:21 Dose: 1 puff Non-Formulary Medication (Vits A/C/E/B Complx/Min/Lutein [Lipotriad Caplet]) 1 tab PO DAILY [facility] Last Admin: 11/26/18 08:23 Dose: Not Given Omeprazole (Omeprazole) 20 mg PO DAILY [facility] Last Admin: 11/26/18 08:21 Dose: 20 mg Tiotropium [place] (Spiriva Handihaler) 18 mcg INH BEDTIME [facility] Last Admin: 11/25/18 20:20 Dose: 18 mcg Discontinued Medications Cholecalciferol (Vitamin D3) Confirm Administered Dose 2,000 unit .ROUTE .STK- MED ONE Stop: 11/26/18 07:45 Last Admin: 11/26/18 08:29 Dose: Not Given Folic Acid (Folic Acid) Confirm Administered Dose 1 mg .ROUTE .STK-MED ONE Stop: 11/26/18 07:42 Last Admin: 11/26/18 08:25 Dose: Not Given Dextrose/Sodium Chloride (Dextrose 5%-Normal Saline) 1,000 mls @ 125 mls/hr IV ASDIRECTED [facility] Stop: 11/22/18 23:59 Last Admin: 11/22/18 18:39 Dose: 125 mls/hr Levofloxacin/Dextrose (Levaquin In D5w 750 Mg/150 Ml) Confirm Administered Dose 150 mls @ as directed IV .STK-MED ONE Stop: 11/24/18 11:43 Last Admin: 11/24/18 14:26 Dose: Not Given Levofloxacin/Dextrose (Levaquin In D5w 750 Mg/150 Ml) Confirm Administered Dose 150 mls @ as directed IV .STK-MED ONE Stop: 11/25/18 11:19 Last Admin: 11/25/18 22:24 Dose: Not Given Lactobacillus Acidophilus (Acidolphilus Extra Strength) Confirm Administered Dose 1 tab .ROUTE .STK-MED ONE Stop: 11/26/18 07:35 Last Admin: 11/26/18 08:25 Dose: Not Given Levofloxacin (Levaquin) 750 mg PO Q24H [facility] Stop: 11/27/18 12:00 Last Admin: 11/23/18 11:24 Dose: 750 mg Omeprazole (Omeprazole) Confirm Administered Dose 20 mg .ROUTE .STK-MED ONE Stop: 11/26/18 07:44 Last Admin: 11/26/18 08:25 Dose: Not Given Tiotropium [place] (Spiriva Handihaler) 18 mcg INH DAILY [facility] Last Admin: 11/24/18 19:30 Dose: Not Given - Exam General: Alert, Oriented, Cooperative HEENT: Pupils Equal, Pupils Reactive, EOMI Neck: Supple Lungs: Clear to Auscultation, Normal Respiratory Effort Cardiovascular: Regular Rate, Regular Rhythm GI/Abdominal Exam: Normal Bowel Sounds, Soft, Non-Tender Back Exam: Normal Inspection Extremities: Normal Inspection, Normal Range of Motion, Non-Tender, No Pedal Edema, Normal Capillary Refill - Problem List & Annotations (1) Dehydration SNOMED Code(s): 89166548 Code(s): E86.0 - DEHYDRATION Status: Resolved Priority: High Current Visit: Yes (2) Delirium SNOMED Code(s): 7509439 Code(s): R41.0 - DISORIENTATION, UNSPECIFIED Status: Resolved Priority: High Current Visit: Yes (3) Severe muscle deconditioning SNOMED Code(s): 992792096 Code(s): R29.898 - OTH SYMPTOMS AND SIGNS INVOLVING THE MUSCULOSKELETAL SYSTEM Status: Acute Priority: High Current Visit: Yes (4) Pneumonia SNOMED Code(s): 333726417 Code(s): J18.9 - PNEUMONIA, UNSPECIFIED ORGANISM Status: Acute Priority: High Current Visit: Yes Qualifiers: Pneumonia type: due to Klebsiella pneumoniae Laterality: right Lung location: middle lobe of lung Qualified Code(s): J15.0 - Pneumonia due to Klebsiella pneumoniae - Problem List Review Problem List Initiated/Reviewed/Updated: Yes - My Orders Last 24 Hours: My Active Orders 11/25/18 14:45 Acidophilus/Lactobac Spor [Acidolphilus Extra Strength] 1 tab PO DAILY 11/25/18 16:23 CULTURE BLOOD [BC] Stat 11/27/18 05:11 BASIC METABOLIC PANEL,BMP [CHEM] AM CBC WITH AUTO DIFF [HEME] AM - Plan Plan:: 11/23/18 Patient labs ordered. Hep lock at this time. PT/OT evaluation for weakness or other concerns. Discussed normal labs to date - consider a viral infection - EBV and CMV ordered. 11/24/18 Patient symptoms are likely due in part from a Pneumonia shown on X- ray. We will place patient into Inpatient Admit and start on IV antibiotics. PT/OT evaluation as well. F/u labs as routine and daily labs as routine. F/u blood cultures. 11/25/18 Patient to continue on current antibiotics. He will need PT/OT for strength and ambulation. F/u labs in AM. 11/26/18 We will continue IV antibiotics for full 7 day course treatment for pneumonia. Continue PT/OT for strengthening and ambulation. F/u labs as routine.
[2018-11-26] MEDS ORDERED: Levofloxacin/Dextrose 5%-Water 150 ML IV ONE (09:56)
[2018-11-26] MEDS: Levofloxacin/Dextrose 5%-Water 750 MG in Premix Bag 1 BAG IV SCH (10:23)
[2018-11-26 18:07] LABS: EBV AB VCA, IGM 36.5 U/mL (0.0-35.9)
[2018-11-26] MEDS: Tiotropium Inhaler 18 MCG Inhalation Powder Cap Kit of 5 INH SCH (20:27)
[2018-11-27] MEDS: Dextrose 5%-0.9% NaCl 1,000 ML IV SCH (00:14)
[2018-11-27] MEDS: Lactobacillus Acidophilus/Lactobacillus Sporogenes (Probiotic) Tab PO SCH (08:25)
[2018-11-27] MEDS: Cholecalciferol (Vitamin D3) 2,000 Unit Cap PO SCH (08:26)
[2018-11-27] MEDS: Folic Acid 1 MG Tab PO SCH (08:26)
[2018-11-27] MEDS: CLOBETASOL PROPIONATE TP SCH (08:27)
[2018-11-27] MEDS: Levofloxacin/Dextrose 5%-Water 150 ML IV SCH (08:27)
[2018-11-27] MEDS: Non-Formulary Medication 1 Each (Biotin [Biotin] 10,000 MCG) PO SCH (08:27)
[2018-11-27] MEDS: Non-Formulary Medication 1 Each (Fluticasone/Salmeterol [Advair 250-50 Diskus] 1 PUFF) IH SCH ×2 (08:28→19:45)
[2018-11-27] MEDS: LUTEIN PO SCH (08:30)
[2018-11-27] MEDS: [UNRECOGNIZED DRUG - OTHER] PO SCH (08:30)
[2018-11-27] MEDS: VITS A PO SCH (08:30)
[2018-11-27] MEDS: Omeprazole 20 MG Cap.CR PO SCH (08:35)
--- NOTE | 2018-11-27 10:27 | PCM.PN ---
- General Info Date of Service: 11/27/18 Subjective Update: Pt claims he is a little more energetic today. he walk with minimal assistance to bathroom and back. Tolerating oral diet and drink fluids. Afebrile. No fever or chills. On IV levaquin and IV fluids. Functional Status: Reports: Pain Controlled, Tolerating Diet, Ambulating, Urinating - Review of Systems General: Reports: Weakness. Denies: Fever, Chills HEENT: Denies: Sinus Congestion, Rhinitis Pulmonary: Denies: Shortness of Breath, Cough, Sputum Cardiovascular: Denies: Chest Pain, Lightheadedness Gastrointestinal: Denies: Constipation, Decreased Appetite, Nausea, Vomiting Genitourinary: Denies: Dysuria, Frequency - Patient Data Vitals - Most Recent: Last Vital Signs Temp 98.8 F 11/27/18 05:00 Pulse 68 11/27/18 05:00 Resp 20 11/27/18 05:00 BP 122/62 11/27/18 05:00 Pulse Ox 94 L 11/27/18 05:00 Weight - Most Recent: 76.572 kg I&O - Last 24 Hours: Intake & Output 11/26/18 11/27/18 11/27/18 22:59 06:59 14:59 Intake Total 2196 1510 Output Total 1200 Balance 2196 310 Lab Results Last 24 Hours: Laboratory Results - last 24 hr 11/23/18 11/23/18 11/27/18 Range/Units 10:00 10:00 08:50 WBC 6.5 (4.0-11.0) K/uL RBC 3.14 L (4.50-6.50) M/uL Hgb 10.0 L (13.0-18.0) g/dL Hct 30.0 L (40.0-54.0) % MCV 96 (76-96) fL MCH 31.8 (27.0-32.0) pg MCHC 33.3 (31.0-35.0) g/dL RDW 15.6 (11.0-16.0) % Plt Count 404 H (150-400) K/uL MPV 9.7 (6.0-10.0) fL Neut % (Auto) 59.3 (45.0-70.0) % Lymph % (Auto) 20.8 (20.0-40.0) % Lamb % (Auto) 15.2 H (3.0-10.0) % Eos % (Auto) 4.2 (1.0-5.0) % Baso % (Auto) 0.5 (0.0-0.5) % Neut # (Auto) 3.86 (2.00-7.50) K/uL Lymph # (Auto) 1.35 L (1.50-4.00) K/uL Lamb # (Auto) 0.99 H (0.20-0.80) K/uL Eos # (Auto) 0.27 (0.04-0.40) K/uL Baso # (Auto) 0.03 (0.02-0.10) K/uL Sodium (136-145) mmol/L Potassium (3.5-5.1) mmol/L Chloride (98-107) mmol/L Carbon Dioxide (21.0-32.0) mmol/L Anion Gap (5.0-15.0) mmol/L BUN (8-26) mg/dL Creatinine (0.70-1.30) mg/dL Est Cr Clr Drug Dosing mL/min Estimated GFR (MDRD) (>60) MLS/MIN BUN/Creatinine Ratio (6-25) Glucose (74-100) mg/dL Calcium (8.5-10.1) mg/dL CMV IgG Ab (GLORIA) >10.00 H (0.00-0.59) U/mL CMV IgM Ab (GLORIA) <30.0 (0.0-29.9) AU/mL EBV Capsid Ag IgG Ab 574.0 H (0.0-17.9) U/mL EBV Capsid Ag IgM Ab 36.5 H (0.0-35.9) U/mL EBV Early Antigen IgG 72.1 H (0.0-8.9) U/mL EBV Nuclear Ag IgG Ab 309.0 H (0.0-17.9) U/mL EBV Antibody Interp Comment (.) 11/27/18 Range/Units 08:50 WBC (4.0-11.0) K/uL RBC (4.50-6.50) M/uL Hgb (13.0-18.0) g/dL Hct (40.0-54.0) % MCV (76-96) fL MCH (27.0-32.0) pg MCHC (31.0-35.0) g/dL RDW (11.0-16.0) % Plt Count (150-400) K/uL MPV (6.0-10.0) fL Neut % (Auto) (45.0-70.0) % Lymph % (Auto) (20.0-40.0) % Lamb % (Auto) (3.0-10.0) % Eos % (Auto) (1.0-5.0) % Baso % (Auto) (0.0-0.5) % Neut # (Auto) (2.00-7.50) K/uL Lymph # (Auto) (1.50-4.00) K/uL Lamb # (Auto) (0.20-0.80) K/uL Eos # (Auto) (0.04-0.40) K/uL Baso # (Auto) (0.02-0.10) K/uL Sodium 141 (136-145) mmol/L Potassium 3.4 L (3.5-5.1) mmol/L Chloride 103 (98-107) mmol/L Carbon Dioxide 25.5 (21.0-32.0) mmol/L Anion Gap 15.9 H (5.0-15.0) mmol/L BUN 8 D (8-26) mg/dL Creatinine 0.86 (0.70-1.30) mg/dL Est Cr Clr Drug Dosing 74.20 mL/min Estimated GFR (MDRD) > 60 (>60) MLS/MIN BUN/Creatinine Ratio 9.3 (6-25) Glucose 109 H (74-100) mg/dL Calcium 7.9 L (8.5-10.1) mg/dL CMV IgG Ab ([place]ORIA) (0.00-0.59) U/mL CMV IgM Ab ([place]IA) (0.0-29.9) AU/mL EBV Capsid Ag IgG Ab (0.0-17.9) U/mL EBV Capsid Ag IgM Ab (0.0-35.9) U/mL EBV Early Antigen IgG (0.0-8.9) U/mL EBV Nuclear Ag IgG Ab (0.0-17.9) U/mL EBV Antibody Interp (.) Jerel Results Last 24 Hours: Microbiology 11/24/18 09:55 Aerobic Blood Culture - Preliminary Blood NO GROWTH AFTER 3 DAYS Anaerobic Blood Culture - Preliminary NO GROWTH AFTER 3 DAYS 11/24/18 09:45 Aerobic Blood Culture - Preliminary Blood NO GROWTH AFTER 3 DAYS Anaerobic Blood Culture - Preliminary NO GROWTH AFTER 3 DAYS 11/25/18 16:23 Aerobic Blood Culture - Preliminary Blood NO GROWTH AFTER 1 DAY Anaerobic Blood Culture - Preliminary NO GROWTH AFTER 1 DAY Med Orders - Current: Current Medications Acetaminophen (Tylenol) 650 mg PO Q4H PRN PRN Reason: analgesia/fever Last Admin: 11/25/18 15:49 Dose: 650 mg Cholecalciferol (Vitamin D3) 2,000 unit PO DAILY [facility] Last Admin: 11/27/18 08:26 Dose: 2,000 unit Folic Acid (Folic Acid) 1 mg PO DAILY [facility] Last Admin: 11/27/18 08:26 Dose: 1 mg Dextrose/Sodium Chloride (Dextrose 5%-Normal Saline) 1,000 mls @ 100 mls/hr IV ASDIRECTED [facility] Last Admin: 11/27/18 00:14 Dose: 100 mls/hr Levofloxacin/Dextrose (Levaquin In D5w 750 Mg/150 Ml) 150 mls @ 100 mls/hr IV DAILY [facility] Stop: 11/28/18 23:59 Last Admin: 11/27/18 08:27 Dose: 100 mls/hr Lactobacillus Acidophilus (Acidolphilus Extra Strength) 1 tab PO DAILY [facility] Last Admin: 11/27/18 08:25 Dose: 1 tab Non-Formulary Medication (Biotin [Biotin]) 10,000 mcg PO DAILY [facility] Last Admin: 11/27/18 08:27 Dose: 10,000 mcg Non-Formulary Medication (Calcium Carbonate/Vitamin D3 [Calcium 1,000 + D3 Caplet]) 1 each PO DAILY [facility] Last Admin: 11/27/18 08:26 Dose: 1 each Non-Formulary Medication (Clobetasol Propionate [Temovate 0.05% Oint]) 15 gm TP DAILY [facility] Last Admin: 11/27/18 08:27 Dose: Not Given Non-Formulary Medication (Fluticasone/Salmeterol [Advair 250-50 Diskus]) 1 puff IH BID [facility] Last Admin: 11/27/18 08:28 Dose: 1 puff Non-Formulary Medication (Vits A/C/E/B Complx/Min/Lutein [Lipotriad Caplet]) 1 tab PO DAILY [facility] Last Admin: 11/27/18 08:30 Dose: Not Given Omeprazole (Omeprazole) 20 mg PO DAILY [facility] Last Admin: 11/27/18 08:35 Dose: 20 mg Tiotropium [place] (Spiriva Handihaler) 18 mcg INH BEDTIME [facility] Last Admin: 11/26/18 20:27 Dose: 18 mcg Discontinued Medications Cholecalciferol (Vitamin D3) Confirm Administered Dose 2,000 unit .ROUTE .STK- MED ONE Stop: 11/26/18 07:45 Last Admin: 11/26/18 08:29 Dose: Not Given Folic Acid (Folic Acid) Confirm Administered Dose 1 mg .ROUTE .STK-MED ONE Stop: 11/26/18 07:42 Last Admin: 11/26/18 08:25 Dose: Not Given Dextrose/Sodium Chloride (Dextrose 5%-Normal Saline) 1,000 mls @ 125 mls/hr IV ASDIRECTED [facility] Stop: 11/22/18 23:59 Last Admin: 11/22/18 18:39 Dose: 125 mls/hr Levofloxacin/Dextrose 750 mg/ (Premix) 150 mls @ 100 mls/hr IV Q24H [facility] Stop: 11/28/18 10:59 Last Admin: 11/26/18 10:23 Dose: 100 mls/hr Levofloxacin/Dextrose (Levaquin In D5w 750 Mg/150 Ml) Confirm Administered Dose 150 mls @ as directed IV .STK-MED ONE Stop: 11/24/18 11:43 Last Admin: 11/24/18 14:26 Dose: Not Given Levofloxacin/Dextrose (Levaquin In D5w 750 Mg/150 Ml) Confirm Administered Dose 150 mls @ as directed IV .STK-MED ONE Stop: 11/25/18 11:19 Last Admin: 11/25/18 22:24 Dose: Not Given Levofloxacin/Dextrose (Levaquin In D5w 750 Mg/150 Ml) Confirm Administered Dose 150 mls @ as directed IV .STK-MED ONE Stop: 11/26/18 09:57 Last Admin: 11/26/18 15:20 Dose: Not Given Lactobacillus Acidophilus (Acidolphilus Extra Strength) Confirm Administered Dose 1 tab .ROUTE .STK-MED ONE Stop: 11/26/18 07:35 Last Admin: 11/26/18 08:25 Dose: Not Given Levofloxacin (Levaquin) 750 mg PO Q24H [facility] Stop: 11/27/18 12:00 Last Admin: 11/23/18 11:24 Dose: 750 mg Omeprazole (Omeprazole) Confirm Administered Dose 20 mg .ROUTE .STK-MED ONE Stop: 11/26/18 07:44 Last Admin: 11/26/18 08:25 Dose: Not Given Tiotropium [place] (Spiriva Handihaler) 18 mcg INH DAILY [facility] Last Admin: 11/24/18 19:30 Dose: Not Given - Exam General: Alert, Oriented HEENT: Pupils Equal, Pupils Reactive, EOMI, Mucous Membr. Moist/[place] Neck: Supple Lungs: Clear to Auscultation, Normal Respiratory Effort Cardiovascular: Regular Rate, Regular Rhythm GI/Abdominal Exam: Normal Bowel Sounds, Soft, Non-Tender, No Organomegaly, No Distention, No Abnormal Bruit, No Mass, Pelvis Stable Extremities: Normal Inspection, Normal Range of Motion, Non-Tender, No Pedal Edema, Normal Capillary Refill - Problem List & Annotations (1) Generalized weakness SNOMED Code(s): 65996920 Code(s): R53.1 - WEAKNESS Status: Acute Priority: High Current Visit: No - Problem List Review Problem List Initiated/Reviewed/Updated: Yes - Assessment Assessment:: Generalized weakness Questionable pneumonia. - Plan Plan:: 11/23/18 Patient labs ordered. Hep lock at this time. PT/OT evaluation for weakness or other concerns. Discussed normal labs to date - consider a viral infection - EBV and CMV ordered. 11/24/18 Patient symptoms are likely due in part from a Pneumonia shown on X- ray. We will place patient into Inpatient Admit and start on IV antibiotics. PT/OT evaluation as well. F/u labs as routine and daily labs as routine. F/u blood cultures. 11/25/18 Patient to continue on current antibiotics. He will need PT/OT for strength and ambulation. F/u labs in AM. 11/26/18 We will continue IV antibiotics for full 7 day course treatment for pneumonia. Continue PT/OT for strengthening and ambulation. F/u labs as routine. 11/27/18 Pt claims he is feeling better today. Witnessed him walk to bathroom. He does have severe kyphoscoliosis which can hamper his balance and strength. Will need PT and OT. I have stopped his IV fluids as he is tolerating oral fluids well.
[2018-11-27] MEDS: Tiotropium Inhaler 18 MCG Inhalation Powder Cap Kit of 5 INH SCH (19:44)
[2018-11-28] MEDS: Omeprazole 20 MG Cap.CR PO SCH (07:31)
[2018-11-28] MEDS: Lactobacillus Acidophilus/Lactobacillus Sporogenes (Probiotic) Tab PO SCH (07:31)
[2018-11-28] MEDS: Levofloxacin/Dextrose 5%-Water 150 ML IV SCH (07:31)
[2018-11-28] MEDS: Cholecalciferol (Vitamin D3) 2,000 Unit Cap PO SCH (07:32)
[2018-11-28] MEDS: Non-Formulary Medication 1 Each (Biotin [Biotin] 10,000 MCG) PO SCH (07:32)
[2018-11-28] MEDS: VITS A PO SCH (07:33)
[2018-11-28] MEDS: LUTEIN PO SCH (07:33)
[2018-11-28] MEDS: [UNRECOGNIZED DRUG - OTHER] PO SCH (07:33)
[2018-11-28] MEDS: Folic Acid 1 MG Tab PO SCH (08:15)
--- NOTE | 2018-11-28 11:24 | PCM.PN ---
- General Info Date of Service: 11/28/18 Subjective Update: Pt claims he has been feeling more weak today than yesterday. Has been able to ambulate and use bathroom with assistance. Today is last day of IV Levaquin. No fever or chills. Has mild cough. No wheezing or shortness of breath. Functional Status: Reports: Pain Controlled, Tolerating Diet, Ambulating, Urinating - Review of Systems General: Reports: Weakness. Denies: Fever, Chills HEENT: Denies: Sinus Congestion, Sore Throat, Rhinitis Pulmonary: Reports: Cough. Denies: Shortness of Breath, Pleuritic Chest Pain, Sputum, Hemoptysis, Wheezing Cardiovascular: Denies: Chest Pain, Lightheadedness Gastrointestinal: Denies: Abdominal Pain, Diarrhea, Nausea, Vomiting Genitourinary: Denies: Dysuria, Frequency Musculoskeletal: Denies: Joint Pain Skin: Denies: Bruising, Pruritis, Rash - Patient Data Vitals - Most Recent: Last Vital Signs Temp 98.9 F 11/28/18 07:42 Pulse 66 11/28/18 07:42 Resp 20 11/28/18 05:00 BP 123/72 11/28/18 07:42 Pulse Ox 93 L 11/28/18 07:46 Weight - Most Recent: 75.931 kg I&O - Last 24 Hours: Intake & Output 11/27/18 11/28/18 11/28/18 22:59 06:59 14:59 Intake Total 1810 370 Output Total 1525 1050 Balance 285 -680 Jerel Results Last 24 Hours: Microbiology 11/24/18 09:55 Aerobic Blood Culture - Preliminary Blood NO GROWTH AFTER 4 DAYS Anaerobic Blood Culture - Preliminary NO GROWTH AFTER 4 DAYS 11/24/18 09:45 Aerobic Blood Culture - Preliminary Blood NO GROWTH AFTER 4 DAYS Anaerobic Blood Culture - Preliminary NO GROWTH AFTER 4 DAYS 11/25/18 16:23 Aerobic Blood Culture - Preliminary Blood NO GROWTH AFTER 2 DAYS Anaerobic Blood Culture - Preliminary NO GROWTH AFTER 2 DAYS Med Orders - Current: Current Medications Acetaminophen (Tylenol) 650 mg PO Q4H PRN PRN Reason: analgesia/fever Last Admin: 11/25/18 15:49 Dose: 650 mg Cholecalciferol (Vitamin D3) 2,000 unit PO DAILY [facility] Last Admin: 11/28/18 07:32 Dose: 2,000 unit Folic Acid (Folic Acid) 1 mg PO DAILY [facility] Last Admin: 11/27/18 08:26 Dose: 1 mg Dextrose/Sodium Chloride (Dextrose 5%-Normal Saline) 1,000 mls @ 100 mls/hr IV ASDIRECTED [facility] Last Admin: 11/27/18 00:14 Dose: 100 mls/hr Levofloxacin/Dextrose (Levaquin In D5w 750 Mg/150 Ml) 150 mls @ 100 mls/hr IV DAILY [facility] Stop: 11/28/18 23:59 Last Admin: 11/28/18 07:31 Dose: 100 mls/hr Lactobacillus Acidophilus (Acidolphilus Extra Strength) 1 tab PO DAILY [facility] Last Admin: 11/28/18 07:31 Dose: 1 tab Non-Formulary Medication (Biotin [Biotin]) 10,000 mcg PO DAILY [facility] Last Admin: 11/28/18 07:32 Dose: 10,000 mcg Non-Formulary Medication (Calcium Carbonate/Vitamin D3 [Calcium 1,000 + D3 Caplet]) 1 each PO DAILY [facility] Last Admin: 11/28/18 07:31 Dose: 1 each Non-Formulary Medication (Clobetasol Propionate [Temovate 0.05% Oint]) 15 gm TP DAILY [facility] Last Admin: 11/27/18 08:27 Dose: Not Given Non-Formulary Medication (Fluticasone/Salmeterol [Advair 250-50 Diskus]) 1 puff IH BID [facility] Last Admin: 11/27/18 19:45 Dose: 1 puff Non-Formulary Medication (Vits A/C/E/B Complx/Min/Lutein [Lipotriad Caplet]) 1 tab PO DAILY [facility] Last Admin: 11/28/18 07:33 Dose: Not Given Omeprazole (Omeprazole) 20 mg PO DAILY [facility] Last Admin: 11/28/18 07:31 Dose: 20 mg Tiotropium [place] (Spiriva Handihaler) 18 mcg INH BEDTIME [facility] Last Admin: 11/27/18 19:44 Dose: 18 mcg Discontinued Medications Cholecalciferol (Vitamin D3) Confirm Administered Dose 2,000 unit .ROUTE .STK- MED ONE Stop: 11/26/18 07:45 Last Admin: 11/26/18 08:29 Dose: Not Given Folic Acid (Folic Acid) Confirm Administered Dose 1 mg .ROUTE .STK-MED ONE Stop: 11/26/18 07:42 Last Admin: 11/26/18 08:25 Dose: Not Given Dextrose/Sodium Chloride (Dextrose 5%-Normal Saline) 1,000 mls @ 125 mls/hr IV ASDIRECTED [facility] Stop: 11/22/18 23:59 Last Admin: 11/22/18 18:39 Dose: 125 mls/hr Levofloxacin/Dextrose 750 mg/ (Premix) 150 mls @ 100 mls/hr IV Q24H [facility] Stop: 11/28/18 10:59 Last Admin: 11/26/18 10:23 Dose: 100 mls/hr Levofloxacin/Dextrose (Levaquin In D5w 750 Mg/150 Ml) Confirm Administered Dose 150 mls @ as directed IV [facility] ONE Stop: 11/24/18 11:43 Last Admin: 11/24/18 14:26 Dose: Not Given Levofloxacin/Dextrose (Levaquin In D5w 750 Mg/150 Ml) Confirm Administered Dose 150 mls @ as directed IV [facility] Stop: 11/25/18 11:19 Last Admin: 11/25/18 22:24 Dose: Not Given Levofloxacin/Dextrose (Levaquin In D5w 750 Mg/150 Ml) Confirm Administered Dose 150 mls @ as directed IV [facility] ONE Stop: 11/26/18 09:57 Last Admin: 11/26/18 15:20 Dose: Not Given Lactobacillus Acidophilus (Acidolphilus Extra Strength) Confirm Administered Dose 1 tab .ROUTE .[facility] ONE Stop: 11/26/18 07:35 Last Admin: 11/26/18 08:25 Dose: Not Given Levofloxacin (Levaquin) 750 mg PO Q24H [facility] Stop: 11/27/18 12:00 Last Admin: 11/23/18 11:24 Dose: 750 mg Omeprazole (Omeprazole) Confirm Administered Dose 20 mg .ROUTE .[facility] ONE Stop: 11/26/18 07:44 Last Admin: 11/26/18 08:25 Dose: Not Given Tiotropium [place] (Spiriva Handihaler) 18 mcg INH DAILY [facility] Last Admin: 11/24/18 19:30 Dose: Not Given - Exam General: Alert, Oriented, Cooperative HEENT: Pupils Equal, Pupils Reactive, EOMI, Mucous Membr. Moist/[place] Neck: Supple Lungs: Clear to Auscultation, Normal Respiratory Effort Cardiovascular: Regular Rate, Regular Rhythm GI/Abdominal Exam: Normal Bowel Sounds, Soft, Non-Tender, No Organomegaly, No Distention, No Abnormal Bruit, No Mass, Pelvis Stable Back Exam: Other (severe khyphoscoliosis) Extremities: Normal Inspection, Normal Range of Motion, Non-Tender, No Pedal Edema, Normal Capillary Refill - Problem List & Annotations (1) Generalized weakness SNOMED Code(s): 74864039 Code(s): R53.1 - WEAKNESS Status: Acute Priority: High Current Visit: No - Problem List Review Problem List Initiated/Reviewed/Updated: Yes - Assessment Assessment:: Generalized weakness Questionable pneumonia. - Plan Plan:: 11/23/18 Patient labs ordered. Hep lock at this time. PT/OT evaluation for weakness or other concerns. Discussed normal labs to date - consider a viral infection - EBV and CMV ordered. 11/24/18 Patient symptoms are likely due in part from a Pneumonia shown on X- ray. We will place patient into Inpatient Admit and start on IV antibiotics. PT/OT evaluation as well. F/u labs as routine and daily labs as routine. F/u blood cultures. 11/25/18 Patient to continue on current antibiotics. He will need PT/OT for strength and ambulation. F/u labs in AM. 11/26/18 We will continue IV antibiotics for full 7 day course treatment for pneumonia. Continue PT/OT for strengthening and ambulation. F/u labs as routine. 11/27/18 Pt claims he is feeling better today. Witnessed him walk to bathroom. He does have severe kyphoscoliosis which can hamper his balance and strength. Will need PT and OT. I have stopped his IV fluids as he is tolerating oral fluids well. Pt's clinical exam and vitals are stable. He continue to c/o weakness and decreased strength. Will start OT and PT tomorrow. Probably change him to swing bed level of care tomorrow.
[2018-11-28] MEDS: CLOBETASOL PROPIONATE TP SCH (12:10)
[2018-11-28] MEDS: Non-Formulary Medication 1 Each (Fluticasone/Salmeterol [Advair 250-50 Diskus] 1 PUFF) IH SCH ×2 (12:11→20:36)
[2018-11-28] MEDS: Tiotropium Inhaler 18 MCG Inhalation Powder Cap Kit of 5 INH SCH (20:36)
[2018-11-29] MEDS: Lactobacillus Acidophilus/Lactobacillus Sporogenes (Probiotic) Tab PO SCH (07:42)
[2018-11-29] MEDS: Non-Formulary Medication 1 Each (Biotin [Biotin] 10,000 MCG) PO SCH (07:43)
[2018-11-29] MEDS: Omeprazole 20 MG Cap.CR PO SCH (07:43)
[2018-11-29] MEDS: Cholecalciferol (Vitamin D3) 2,000 Unit Cap PO SCH (07:43)
[2018-11-29] MEDS: Folic Acid 1 MG Tab PO SCH (07:43)
[2018-11-29] MEDS: CLOBETASOL PROPIONATE TP SCH (07:45)
[2018-11-29] MEDS: Non-Formulary Medication 1 Each (Fluticasone/Salmeterol [Advair 250-50 Diskus] 1 PUFF) IH SCH (07:47)
[2018-11-29] MEDS: VITS A PO SCH (08:00)
[2018-11-29] MEDS: LUTEIN PO SCH (08:00)
[2018-11-29] MEDS: [UNRECOGNIZED DRUG - OTHER] PO SCH (08:00)
--- NOTE | 2018-11-29 15:07 | PCM.DCSUM1 ---
Discharge Summary - Hospital Course Free Text/Narrative:: 78 year old male was admitted with c/o generalized weakness, and was diagnosed with possible pneumonia with positive sputum culture of klebsiella and treated with levaquin. He has done well. His weakness with which he came into the hospital has not improved yet. He can do incentive spirometer of 0579-8593 cc with each breath. 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 Presently he is done with his IV levaquin. Pt has been admitted to swing bed for physial and Occupational therapy to make sure he attains enough strength to do his ADLs at home. Brief History: Admitted to hospital with generalised weakness. Workup showed possible pneumonia. Kindly see H&P for details. Diagnosis: Stroke: No - Discharge Data Discharge Date: 11/29/18 Discharge Disposition: Home, Self-Care 01 Condition: Good - Referral to Home Health Primary Care Physician: PCP None - Discharge Diagnosis/Problem(s) (1) Generalized weakness SNOMED Code(s): 21097714 ICD Code: R53.1 - WEAKNESS Status: Acute Priority: High Current Visit: No - Patient Summary/Data Consults: Consultations 11/22/18 19:10 Consult to Occupational Therapy [OT Evaluation and Treatment] [CONS] Routine Please Evaluate and Treat. OT Reason for Consult: ADL's This query below is only for informational purposes and is not editable. Admission Diagnosis/Problem: Weakness Consult to Physical Therapy [PT Evaluation and Treatment] [CONS] Routine Please Evaluate and Treat. PT Reason for Consult: Ambulation This query below is only for informational purposes and is not editable. Admission Diagnosis/Problem: Weakness - Patient Instructions Diet: Heart Healthy Diet Fluid Restriction: 1500 mL Activity: As Tolerated - Discharge Plan *PRESCRIPTION DRUG MONITORING PROGRAM REVIEWED*: Not Applicable *COPY OF PRESCRIPTION DRUG MONITORING REPORT IN PATIENT LUIS: Not Applicable Home Medications: Home Meds Fluticasone/Salmeterol [Advair 250-50 Diskus] 1 puff IH BID 10/12/14 [History] Folic Acid 1 mg PO DAILY 10/12/14 [History] Methotrexate Sodium [Methotrexate] 25 mg PO WEEKLY 10/12/14 [History] Omeprazole 20 mg PO DAILY 10/12/14 [History] Tiotropium [Spiriva Handihaler] 18 mcg IH DAILY 10/12/14 [History] Clobetasol Propionate [Temovate 0.05% Oint] 15 gm TP DAILY 01/21/18 [History] Biotin 10,000 mcg PO DAILY 03/30/18 [History] Calcium Carbonate/Vitamin D3 [Calcium 1,000 + D3 Caplet] 1 each PO DAILY [History] Cholecalciferol (Vitamin D3) [D3-2000] 2,000 units PO DAILY 03/30/18 [History] Vits A/C/E/B Complx/Min/Lutein [Lipotriad Caplet] 1 tab PO DAILY 03/30/18 [ History] Acetaminophen [Tylenol] 650 mg PO Q4H PRN tablet 11/29/18 [Rx] Acidophilus/Lactobac Spor [Acidolphilus X-Strength] 1 tab PO DAILY tablet 11/29 [Rx] - Discharge Summary/Plan Comment DC Time >30 min.: Yes Discharge Summary/Plan Comment: [facility] - General Info Date of Service: 11/29/18 Subjective Update: Pt claims he feels drained today. Weak. He has been able to feed himself. Uses toilet with assistance. No fever or chills. He does 1401-7253 cc per breath on incentive spirometer. Functional Status: Reports: Pain Controlled, Tolerating Diet, Ambulating, Urinating, Incentive Spirometry - Review of Systems General: Reports: Weakness. Denies: Fever, Malaise HEENT: Denies: Sinus Congestion, Sore Throat, Rhinitis Pulmonary: Reports: Cough, Sputum. Denies: Shortness of Breath, Pleuritic Chest Pain, Hemoptysis Cardiovascular: Denies: Chest Pain, Lightheadedness Gastrointestinal: Denies: Abdominal Pain, Nausea, Vomiting Genitourinary: Denies: Dysuria, Frequency Musculoskeletal: Denies: Joint Pain, Joint Swelling Skin: Denies: Bruising, Pruritis, Rash Neurological: Denies: Confusion, Dizziness, Headache, Numbness, Tingling, Weakness - Patient Data Vitals - Most Recent: Last Vital Signs Temp 98 F 11/29/18 07:45 Pulse 75 11/29/18 12:00 Resp 20 11/29/18 07:45 BP 108/66 11/29/18 07:45 Pulse Ox 94 L 11/29/18 12:00 Weight - Most Recent: 73.482 kg I&O - Last 24 hours: Intake & Output 11/29/18 11/29/18 11/29/18 06:59 14:59 22:59 Intake Total 500 Output Total 1200 Balance -700 MARI Results - Last 24 hrs: Microbiology 11/24/18 09:55 Aerobic Blood Culture - Final Blood NO GROWTH AFTER 5 DAYS Anaerobic Blood Culture - Final NO GROWTH AFTER 5 DAYS 11/24/18 09:45 Aerobic Blood Culture - Final Blood NO GROWTH AFTER 5 DAYS Anaerobic Blood Culture - Final NO GROWTH AFTER 5 DAYS 11/25/18 16:23 Aerobic Blood Culture - Preliminary Blood NO GROWTH AFTER 3 DAYS Anaerobic Blood Culture - Preliminary NO GROWTH AFTER 3 DAYS Med Orders - Current: Current Medications Acetaminophen (Tylenol) 650 mg PO Q4H PRN PRN Reason: analgesia/fever Last Admin: 11/25/18 15:49 Dose: 650 mg Cholecalciferol (Vitamin D3) 2,000 unit PO DAILY [facility] Last Admin: 11/29/18 07:43 Dose: 2,000 unit Folic Acid (Folic Acid) 1 mg PO DAILY [facility] Last Admin: 11/29/18 07:43 Dose: 1 mg Dextrose/Sodium Chloride (Dextrose 5%-Normal Saline) 1,000 mls @ 100 mls/hr IV ASDIRECTED [facility] Last Admin: 11/27/18 00:14 Dose: 100 mls/hr Lactobacillus Acidophilus (Acidolphilus Extra Strength) 1 tab PO DAILY [facility] Last Admin: 11/29/18 07:42 Dose: 1 tab Non-Formulary Medication (Biotin [Biotin]) 10,000 mcg PO DAILY [facility] Last Admin: 11/29/18 07:43 Dose: 10,000 mcg Non-Formulary Medication (Calcium Carbonate/Vitamin D3 [Calcium 1,000 + D3 Caplet]) 1 each PO DAILY [facility] Last Admin: 11/29/18 07:44 Dose: 1 each Non-Formulary Medication (Clobetasol Propionate [Temovate 0.05% Oint]) 15 gm TP DAILY [facility] Last Admin: 11/29/18 07:45 Dose: Not Given Non-Formulary Medication (Fluticasone/Salmeterol [Advair 250-50 Diskus]) 1 puff IH BID [facility] Last Admin: 11/29/18 07:47 Dose: 1 puff Non-Formulary Medication (Vits A/C/E/B Complx/Min/Lutein [Lipotriad Caplet]) 1 tab PO DAILY [facility] Last Admin: 11/29/18 08:00 Dose: Not Given Omeprazole (Omeprazole) 20 mg PO DAILY [facility] Last Admin: 11/29/18 07:43 Dose: 20 mg Tiotropium [place] (Spiriva Handihaler) 18 mcg INH BEDTIME [facility] Last Admin: 11/28/18 20:36 Dose: 18 mcg Discontinued Medications Cholecalciferol (Vitamin D3) Confirm Administered Dose 2,000 unit .ROUTE .[facility] Stop: 11/26/18 07:45 Last Admin: 11/26/18 08:29 Dose: Not Given Folic Acid (Folic Acid) Confirm Administered Dose 1 mg .ROUTE .K-MED ONE Stop: 11/26/18 07:42 Last Admin: 11/26/18 08:25 Dose: Not Given Dextrose/Sodium Chloride (Dextrose 5%-Normal Saline) 1,000 mls @ 125 mls/hr IV ASDIRECTED [facility] Stop: 11/22/18 23:59 Last Admin: 11/22/18 18:39 Dose: 125 mls/hr Levofloxacin/Dextrose 750 mg/ (Premix) 150 mls @ 100 mls/hr IV Q24H [facility] Stop: 11/28/18 10:59 Last Admin: 11/26/18 10:23 Dose: 100 mls/hr Levofloxacin/Dextrose (Levaquin In D5w 750 Mg/150 Ml) Confirm Administered Dose 150 mls @ as directed IV .STK-MED ONE Stop: 11/24/18 11:43 Last Admin: 11/24/18 14:26 Dose: Not Given Levofloxacin/Dextrose (Levaquin In D5w 750 Mg/150 Ml) Confirm Administered Dose 150 mls @ as directed IV .STK-MED ONE Stop: 11/25/18 11:19 Last Admin: 11/25/18 22:24 Dose: Not Given Levofloxacin/Dextrose (Levaquin In D5w 750 Mg/150 Ml) Confirm Administered Dose 150 mls @ as directed IV .STK-MED ONE Stop: 11/26/18 09:57 Last Admin: 11/26/18 15:20 Dose: Not Given Levofloxacin/Dextrose (Levaquin In D5w 750 Mg/150 Ml) 150 mls @ 100 mls/hr IV DAILY [facility] Stop: 11/28/18 23:59 Last Admin: 11/28/18 07:31 Dose: 100 mls/hr Lactobacillus Acidophilus (Acidolphilus Extra Strength) Confirm Administered Dose 1 tab .ROUTE .STK-MED ONE Stop: 11/26/18 07:35 Last Admin: 11/26/18 08:25 Dose: Not Given Levofloxacin (Levaquin) 750 mg PO Q24H [facility] Stop: 11/27/18 12:00 Last Admin: 11/23/18 11:24 Dose: 750 mg Omeprazole (Omeprazole) Confirm Administered Dose 20 mg .ROUTE .STK-MED ONE Stop: 11/26/18 07:44 Last Admin: 11/26/18 08:25 Dose: Not Given Tiotropium [place] (Spiriva Handihaler) 18 mcg INH DAILY [facility] Last Admin: 11/24/18 19:30 Dose: Not Given - Exam General: Reports: Alert, Oriented HEENT: Reports: Pupils Equal, Pupils Reactive Neck: Reports: Supple Lungs: Reports: Clear to Auscultation, Normal Respiratory Effort Cardiovascular: Reports: Regular Rate, Regular Rhythm GI/Abdominal Exam: Normal Bowel Sounds, Soft, Non-Tender, No Organomegaly, No Distention, No Abnormal Bruit, No Mass, Pelvis Stable
[2018-11-29 15:27] VITALS: BP 123/62; PULSE 61
== END 2018-11-29 16:00 | disposition home or self-care (01) | DRG 178 ==
LOC: LB.ED 14:16 → LB.MS 15:27 → UNDOADMOB 15:27 → LB.MS 15:56 → OBSVTOIN 11-24 09:28 → EDBD 11-24 09:28
PROVIDERS: ADMIT Family Medicine; ATTEND Family Medicine
DX: J15.0 Pneumonia due to Klebsiella pneumoniae (principal); J44.0 Chronic obstructive pulmonary disease with (acute) lower respiratory infection; K21.9 Gastro-esophageal reflux disease without esophagitis; K44.9 Diaphragmatic hernia without obstruction or gangrene; J44.9 Chronic obstructive pulmonary disease, unspecified; E86.0 Dehydration; R41.0 Disorientation, unspecified; R29.898 Other symptoms and signs involving the musculoskeletal system; Z79.52 Long term (current) use of systemic steroids; Z79.899 Other long term (current) drug therapy; Z87.891 Personal history of nicotine dependence
CPT/HCPCS: 36415; 71045; 80048; 80053; 84443; 84484; 85025; 86644; 86645; 86663; 86664; 86665; 87040; 87070; 87077; 87186; 87205; 96360; 96361; 97110-GP; 97161-GP; 97166-GO; 97530-GP; 97535-GO; 99285; A0425; A0429; A9270-GY; G0378; J1956

== ENCOUNTER 2018-11-24 09:28 | Inpatient (IN) | payer MEDICARE, OTHER ==
[2018-11-29] MEDS ORDERED: Tuberculin, PPD 5 Units/0.1 ML 1 ML MDV IDERM ONE (15:36)
[2018-11-29] MEDS ORDERED: Acetaminophen 325 MG Tab PO PRN (15:38)
[2018-11-29] MEDS: Formoterol/Mometasone 200-5 MCG 8.8 GM Inhaler IH SCH (20:00)
[2018-11-30] MEDS: Lactobacillus Acidophilus/Lactobacillus Sporogenes (Probiotic) Tab PO SCH (07:45)
[2018-11-30] MEDS: Cholecalciferol (Vitamin D3) 2,000 Unit Cap PO SCH (07:45)
[2018-11-30] MEDS: Omeprazole 20 MG Cap.CR PO SCH (07:46)
[2018-11-30] MEDS: Formoterol/Mometasone 200-5 MCG 8.8 GM Inhaler IH SCH ×2 (07:46→20:54)
[2018-11-30] MEDS: Folic Acid 1 MG Tab PO SCH (07:46)
[2018-11-30] MEDS: Tiotropium Inhaler 18 MCG Inhalation Powder Cap Kit of 5 INH SCH (07:47)
[2018-11-30] MEDS ORDERED: CLOBETASOL PROPIONATE TP SCH (08:00)
[2018-11-30] MEDS ORDERED: METHOTREXATE SODIUM 25 MG PO SCH (08:00)
[2018-11-30] MEDS ORDERED: VITS A PO SCH (08:00)
[2018-11-30] MEDS ORDERED: [UNRECOGNIZED DRUG - OTHER] PO SCH (08:00)
[2018-11-30] MEDS ORDERED: LUTEIN PO SCH (08:00)
[2018-11-30] MEDS: Multivitamins with Iron/Calcium/Folic Acid/Minerals Tab PO SCH (13:05)
[2018-11-30] MEDS: Non-Formulary Medication 1 Each (Biotin [Biotin] 10,000 MCG) PO SCH (13:05)
[2018-11-30] MEDS: Calcium Carbonate/Vitamin D3 1500 MG-400 Units Tab PO SCH (13:05)
[2018-12-01] MEDS ORDERED: METHOTREXATE SODIUM 10 MG PO SCH ×2 (07:00→20:00)
[2018-12-01] MEDS: Multivitamins with Iron/Calcium/Folic Acid/Minerals Tab PO SCH (07:26)
[2018-12-01] MEDS: Calcium Carbonate/Vitamin D3 1500 MG-400 Units Tab PO SCH (07:26)
[2018-12-01] MEDS: Omeprazole 20 MG Cap.CR PO SCH (07:26)
[2018-12-01] MEDS: Folic Acid 1 MG Tab PO SCH (07:26)
[2018-12-01] MEDS: Lactobacillus Acidophilus/Lactobacillus Sporogenes (Probiotic) Tab PO SCH (07:26)
[2018-12-01] MEDS: Cholecalciferol (Vitamin D3) 2,000 Unit Cap PO SCH (07:26)
[2018-12-01] MEDS: Non-Formulary Medication 1 Each (Biotin [Biotin] 10,000 MCG) PO SCH (07:33)
[2018-12-01] MEDS: Formoterol/Mometasone 200-5 MCG 8.8 GM Inhaler IH SCH ×2 (07:35→20:45)
[2018-12-01] MEDS: Tiotropium Inhaler 18 MCG Inhalation Powder Cap Kit of 5 INH SCH (08:00)
[2018-12-01] MEDS ORDERED: METHOTREXATE SODIUM 25 MG PO SCH (20:00)
[2018-12-02] MEDS: Omeprazole 20 MG Cap.CR PO SCH (07:19)
[2018-12-02] MEDS: Multivitamins with Iron/Calcium/Folic Acid/Minerals Tab PO SCH (07:58)
[2018-12-02] MEDS: Cholecalciferol (Vitamin D3) 2,000 Unit Cap PO SCH (07:58)
[2018-12-02] MEDS: Folic Acid 1 MG Tab PO SCH (07:59)
[2018-12-02] MEDS: Calcium Carbonate/Vitamin D3 1500 MG-400 Units Tab PO SCH (07:59)
[2018-12-02] MEDS: Non-Formulary Medication 1 Each (Biotin [Biotin] 10,000 MCG) PO SCH (07:59)
[2018-12-02] MEDS: Formoterol/Mometasone 200-5 MCG 8.8 GM Inhaler IH SCH ×2 (07:59→20:24)
[2018-12-02] MEDS: Lactobacillus Acidophilus/Lactobacillus Sporogenes (Probiotic) Tab PO SCH (07:59)
[2018-12-02] MEDS: Tiotropium Inhaler 18 MCG Inhalation Powder Cap Kit of 5 INH SCH (08:02)
[2018-12-02] MEDS ORDERED: Loperamide 2 MG Cap PO ONE (17:13)
[2018-12-03] MEDS: Omeprazole 20 MG Cap.CR PO SCH (08:13)
[2018-12-03] MEDS: Cholecalciferol (Vitamin D3) 2,000 Unit Cap PO SCH (08:14)
[2018-12-03] MEDS: Folic Acid 1 MG Tab PO SCH (08:14)
[2018-12-03] MEDS: Lactobacillus Acidophilus/Lactobacillus Sporogenes (Probiotic) Tab PO SCH (08:14)
[2018-12-03] MEDS: Tiotropium Inhaler 18 MCG Inhalation Powder Cap Kit of 5 INH SCH (08:14)
[2018-12-03] MEDS: Multivitamins with Iron/Calcium/Folic Acid/Minerals Tab PO SCH (08:14)
[2018-12-03] MEDS: Formoterol/Mometasone 200-5 MCG 8.8 GM Inhaler IH SCH (08:14)
[2018-12-03] MEDS: Calcium Carbonate/Vitamin D3 1500 MG-400 Units Tab PO SCH (08:14)
[2018-12-03] MEDS: Non-Formulary Medication 1 Each (Biotin [Biotin] 10,000 MCG) PO SCH (08:16)
--- NOTE | 2018-12-03 09:45 | PCM.DCSUM1 ---
Discharge Summary - Hospital Course Free Text/Narrative:: Pt was admitted to swing bed [facility] on 11/29/18 for on going weakness. He has been working with OT and PT. He has gained enough strength and is at his base line of function. He uses cane for ambulation., which patient claims he can do. He has mild cough, still form his pneumonia, but no productive sputum. His weakness has got better. feels energetic and ready to go home. he has been given home exercises by physical therapy, which he should continue. Continue home meds. Brief History: Pt was admittd for wekaness, during his hosptial stay was diagnosed with pneumonia, which has resovled. He was admitted to swing bed on for stengthening and ADLS. Kindly see H&P for details. Diagnosis: Stroke: No - Discharge Data Discharge Date: 12/03/18 Discharge Disposition: Home, Self-Care 01 Condition: Good - Referral to Home Health Primary Care Physician: Wisam Magallanes MD - Patient Summary/Data Consults: Consultations 11/29/18 15:36 OT Evaluation and Treatment [CONS] Routine Please Evaluate and Treat. OT Reason for Consult: ADL's This query below is only for informational purposes and is not editable. Admission Diagnosis/Problem: Pain management PT Evaluation and Treatment [CONS] Routine Please Evaluate and Treat. PT Reason for Consult: Strengthening This query below is only for informational purposes and is not editable. Admission Diagnosis/Problem: Pain management - Patient Instructions Diet: Usual Diet as Tolerated Fluid Restriction: 1500 mL Activity: As Tolerated Driving: May Drive Today Showering/Bathing: May Shower - Discharge Plan *PRESCRIPTION DRUG MONITORING PROGRAM REVIEWED*: Not Applicable *COPY OF PRESCRIPTION DRUG MONITORING REPORT IN PATIENT LUIS: Not Applicable Home Medications: Home Meds Fluticasone/Salmeterol [Advair 250-50 Diskus] 1 puff IH BID 10/12/14 [History] Folic Acid 1 mg PO DAILY 10/12/14 [History] Methotrexate Sodium [Methotrexate] 25 mg PO WEEKLY 10/12/14 [History] Omeprazole 20 mg PO DAILY 10/12/14 [History] Tiotropium [Spiriva Handihaler] 18 mcg IH DAILY 10/12/14 [History] Clobetasol Propionate [Temovate 0.05% Oint] 15 gm TP DAILY 01/21/18 [History] Biotin 10,000 mcg PO DAILY 03/30/18 [History] Calcium Carbonate/Vitamin D3 [Calcium 1,000 + D3 Caplet] 1 each PO DAILY [History] Cholecalciferol (Vitamin D3) [D3-2000] 2,000 units PO DAILY 03/30/18 [History] Vits A/C/E/B Complx/Min/Lutein [Lipotriad Caplet] 1 tab PO DAILY 03/30/18 [ History] Acetaminophen [Tylenol] 650 mg PO Q4H PRN tablet 11/29/18 [Rx] Acidophilus/Lactobac Spor [Acidolphilus X-Strength] 1 tab PO DAILY tablet 11/29 [Rx] Calcium Carbonate/Vitamin D3 [Caltrate 600+D 1500 MG-400 Units] 1 tab PO DAILY tablet 12/03/18 [Rx] Patient Handouts: Weakness, Dehydration, Elderly, [id number], Community- Acquired Pneumonia, Adult, [id number] - Discharge Summary/Plan Comment DC Time >30 min.: Yes - General Info Date of Service: 12/03/18 Functional Status: Reports: Pain Controlled, Tolerating Diet, Ambulating, Urinating - Review of Systems General: Denies: Fever, Weakness, Fatigue, Chills HEENT: Denies: Sinus Congestion, Sore Throat, Rhinitis Pulmonary: Reports: Cough (very mild). Denies: Shortness of Breath, Pleuritic Chest Pain, Sputum, Hemoptysis Cardiovascular: Denies: Chest Pain, Lightheadedness Gastrointestinal: Denies: Abdominal Pain, Constipation, Nausea, Vomiting Genitourinary: Denies: Dysuria, Frequency Musculoskeletal: Denies: Joint Pain, Joint Swelling Skin: Denies: Bruising, Pruritis, Rash Neurological: Denies: Confusion, Dizziness, Headache, Numbness, Tingling - Patient Data Vitals - Most Recent: Last Vital Signs Temp 98.7 F 12/02/18 20:00 Pulse 68 12/02/18 20:00 Resp 16 12/02/18 20:00 BP 111/65 12/02/18 20:00 Pulse Ox 96 12/02/18 20:00 Weight - Most Recent: 72.484 kg Med Orders - Current: Current Medications Acetaminophen (Tylenol) 650 mg PO Q4H PRN PRN Reason: analgesia/fever Last Admin: 11/30/18 09:27 Dose: 650 mg Calcium Carbonate (Caltrate 600+D 1500 Mg-400 Units) 1 tab PO DAILY [facility] Last Admin: 12/03/18 08:14 Dose: 1 tab Cholecalciferol (Vitamin D3) 2,000 unit PO DAILY [facility] Last Admin: 12/03/18 08:14 Dose: 2,000 unit Folic Acid (Folic Acid) 1 mg PO DAILY [facility] Last Admin: 12/03/18 08:14 Dose: 1 mg Influenza Virus Vaccine (Pharmacy To Dose - Influenza Vaccine) 1 each IM ONETIME ONE Stop: 11/30/18 12:43 Lactobacillus Acidophilus (Acidolphilus Extra Strength) 1 tab PO DAILY [facility] Last Admin: 12/03/18 08:14 Dose: 1 tab Mometasone Furoate/Formoterol Fumar (Dulera 200-5 Mcg) 2 puff IH BID [facility] Last Admin: 12/03/18 08:14 Dose: 2 puff Multivitamins/Minerals (Thera M Plus) 1 tab PO DAILY [facility] Last Admin: 12/03/18 08:14 Dose: 1 tab Non-Formulary Medication (Biotin [Biotin]) 10,000 mcg PO DAILY [facility] Last Admin: 12/03/18 08:16 Dose: 10,000 mcg Non-Formulary Medication (Clobetasol Propionate [Temovate 0.05% Oint]) 15 gm TP DAILY [facility] Non-Formulary Medication (Methotrexate Sodium [Methotrexate]) 10 mg PO We@0700, 2000 [facility] Last Admin: 12/01/18 20:45 Dose: 10 mg Omeprazole (Omeprazole) 20 mg PO DAILY [facility] Last Admin: 12/03/18 08:13 Dose: 20 mg Tiotropium [place] (Spiriva Handihaler) 18 mcg INH DAILY [facility] Last Admin: 12/03/18 08:14 Dose: 18 mcg Discontinued Medications Loperamide HCl (Imodium) 2 mg PO ONETIME ONE Stop: 12/02/18 17:14 Last Admin: 12/02/18 17:15 Dose: 2 mg Non-Formulary Medication (Methotrexate Sodium [Methotrexate]) 25 mg PO [facility] [place] [place] Last Admin: 11/30/18 17:36 Dose: Not Given Non-Formulary Medication (Methotrexate Sodium [Methotrexate]) 25 mg PO [facility] Tuberculin PPD (Aplisol) 5 unit IDERM ONETIME ONE Stop: 11/29/18 15:37 Last Admin: 11/29/18 18:09 Dose: 5 unit - Exam General: Reports: Alert, Oriented HEENT: Reports: Pupils Equal, Pupils Reactive, EOMI, Mucous Membr. Moist/[place] Neck: Reports: Supple Lungs: Reports: Clear to Auscultation, Normal Respiratory Effort Cardiovascular: Reports: Regular Rate, Regular Rhythm GI/Abdominal Exam: Normal Bowel Sounds, Soft, Non-Tender, No Organomegaly, No Distention, No Abnormal Bruit, No Mass, Pelvis Stable Back Exam: Reports: Normal Inspection, Full Range of Motion Extremities: Normal Inspection, Normal Range of Motion, Non-Tender, No Pedal Edema, Normal Capillary Refill Skin: Reports: Warm
[2018-12-03 10:50] VITALS: BP 105/71; PULSE 82
== END 2018-12-03 09:54 | disposition home or self-care (01) | DRG 947 ==
LOC: EDBD → LB.MS 09:28 → UNDOADMIN 09:28 → LB.MS 11-29 15:36
PROVIDERS: ADMIT Family Medicine; ATTEND Family Medicine
DX: R53.1 Weakness (principal); J18.9 Pneumonia, unspecified organism; B96.1 Klebsiella pneumoniae [K. pneumoniae] as the cause of diseases classified elsewhere; Z79.899 Other long term (current) drug therapy
CPT/HCPCS: 86580; 97110-GO; 97110-GP; 97116-GP; 97530-GO; 97530-GP; 97535-GO; A9270-GY

== ENCOUNTER 2019-11-01 19:57 | Emergency (ER) | payer MEDICARE, OTHER ==
--- NOTE | 2019-11-01 20:57 | EDM.PDOC ---
ED HPI GENERAL MEDICAL PROBLEM - General Chief Complaint: Abdominal Pain Stated Complaint: cramping Time Seen by Provider: 11/01/19 20:40 Source of Information: Reports: Patient, Family History Limitations: Reports: No Limitations - History of Present Illness Onset: Today Onset Date: 11/01/19 Onset Time: 13:00 Location: Reports: Abdomen Quality: Reports: Pressure, Sharp Severity: Moderate Improves with: Reports: Rest Worsens with: Reports: Movement Associated Symptoms: Reports: Shortness of Breath, Weakness. Denies: Fever/Chills, Loss of Appetite, Nausea/Vomiting - Related Data Allergies Allergy/AdvReac Type Severity Reaction Status Date / Time No Known Allergies Allergy Verified 11/29/18 17:50 Home Meds: Home Meds Fluticasone Propion/Salmeterol [Advair 250-50 Diskus] 1 puff IH BID 10/12/14 [History] Folic Acid 1 mg PO DAILY 10/12/14 [History] Methotrexate Sodium [Methotrexate] 25 mg PO WEEKLY 10/12/14 [History] Omeprazole 20 mg PO DAILY 10/12/14 [History] Tiotropium [Spiriva Handihaler] 18 mcg IH DAILY 10/12/14 [History] Clobetasol Propionate [Temovate 0.05% Oint] 15 gm TP DAILY 01/21/18 [History] Biotin 10,000 mcg PO DAILY 03/30/18 [History] Calcium Carbonate/Vitamin D3 [Calcium 1,000 + D3 Caplet] 1 each PO DAILY 03/30/18 [History] Cholecalciferol (Vitamin D3) [D3-2000] 2,000 units PO DAILY 03/30/18 [History] Vits A/C/E/B Complx/Min/Lutein [Lipotriad Caplet] 1 tab PO DAILY 03/30/18 [History] Acetaminophen [Tylenol] 650 mg PO Q4H PRN tablet 11/29/18 [Rx] Acidophilus/Lactobac Spor [Acidolphilus X-Strength] 1 tab PO DAILY tablet 11/29/18 [Rx] Calcium Carbonate/Vitamin D3 [Caltrate 600+D 1500 MG-400 Units] 1 tab PO DAILY tablet 12/03/18 [Rx] Past Medical History HEENT History: Reports: Cataract, Macular Degeneration Respiratory History: Reports: COPD, Other (See Below) Other Respiratory History: asbestosis Gastrointestinal History: Reports: GERD, Hiatal Hernia Other Gastrointestinal History: hx of GERD, GI scope to be done oct 23, 2014 in [facility] Other Musculoskeletal History: hx of scolosis, spinal stenosis Hematologic History: Reports: Folic Acid - Infectious Disease History Infectious Disease History: Reports: Chicken Pox, Measles, Mumps - Past Surgical History Respiratory Surgical History: Reports: None GI Surgical History: Reports: None, Colonoscopy Musculoskeletal Surgical History: Reports: None Social & Family History - Family History Family Medical History: Noncontributory - Caffeine Use Caffeine Use: Reports: Coffee, Tea ED ROS GENERAL - Review of Systems Review Of Systems: See Below Constitutional: Reports: No Symptoms HEENT: Reports: No Symptoms Respiratory: Reports: No Symptoms Cardiovascular: Denies: Chest Pain GI/Abdominal: Reports: Abdominal Pain. Denies: Black Stool, Constipation, Diarrhea, Distension, Flatus : Reports: No Symptoms Musculoskeletal: Reports: No Symptoms Skin: Reports: No Symptoms Neurological: Reports: No Symptoms ED EXAM, GI/ABD - Physical Exam Exam: See Below Exam Limited By: No Limitations General Appearance: Alert, WD/WN, No Apparent Distress Ears: Normal External Exam Nose: Normal Inspection Throat/Mouth: Normal Inspection Head: Atraumatic, Normocephalic Neck: Normal Inspection, Supple, Non-Tender, Full Range of Motion Respiratory/Chest: No Respiratory Distress, Lungs Clear, Normal Breath Sounds Cardiovascular: Normal Peripheral Pulses, No JVD, No Murmur, No Rub, Bradycardia GI/Abdominal Exam: Soft, Tender, Abnormal Bowel Sounds Extremities: Normal Inspection Neurological: Alert, Oriented, CN II-XII Intact, Normal Cognition Psychiatric: Normal Affect EKG INTERPRETATION EKG Date: 11/01/19 Time: 20:20 Rate (Beats/Min): 45 [place]: Normal P-Wave: Present QRS: Normal ST-T: Normal QT: Normal (marked bradycardia) Course - Vital Signs Last Recorded V/S: Last Vital Signs Temp 98.4 F 11/01/19 20:11 Pulse 39 L 11/01/19 20:11 Resp 19 11/01/19 20:11 BP 142/61 H 11/01/19 20:11 Pulse Ox 99 11/01/19 20:11 - Orders/Labs/Meds Orders: Active Orders 24 hr Category Date Time Status Chest Abdomen Pelvis wo Cont [CT] Stat Exams 11/01/19 Taken UA W/MICROSCOPIC [URIN] Stat Lab 11/01/19 20:58 Ordered Labs: Laboratory Tests 11/01/19 11/01/19 11/01/19 Range/Units 20:45 20:45 20:45 WBC 9.4 D (4.0-11.0) K/uL RBC 3.43 L (4.50-6.50) M/uL Hgb 11.3 L (13.0-18.0) g/dL Hct 34.1 L (40.0-54.0) % MCV 99 H (76-96) fL MCH 32.9 H (27.0-32.0) pg MCHC 33.1 (31.0-35.0) g/dL RDW 15.8 (11.0-16.0) % Plt Count 221 (150-400) K/uL MPV 10.4 H (6.0-10.0) fL Neut % (Auto) 82.9 H (45.0-70.0) % Lymph % (Auto) 13.2 L (20.0-40.0) % [place] % (Auto) 2.7 L (3.0-10.0) % Eos % (Auto) 1.1 (1.0-5.0) % Baso % (Auto) 0.1 (0.0-0.5) % Neut # (Auto) 7.81 H (2.00-7.50) K/uL Lymph # (Auto) 1.24 L (1.50-4.00) K/uL [place] # (Auto) 0.25 (0.20-0.80) K/uL Eos # (Auto) 0.10 (0.04-0.40) K/uL Baso # (Auto) 0.01 L (0.02-0.10) K/uL Sodium 137 (136-145) mmol/L Potassium 4.3 (3.5-5.1) mmol/L Chloride 101 (98-107) mmol/L Carbon Dioxide 25.9 (21.0-32.0) mmol/L Anion Gap 14.4 (5.0-15.0) mmol/L BUN 15 (8-26) mg/dL Creatinine 1.15 (0.70-1.30) mg/dL Est Cr Clr Drug Dosing TNP Estimated GFR (MDRD) > 60 (>60) MLS/MIN BUN/Creatinine Ratio 13.0 (6-25) Glucose 102 H (74-100) mg/dL Calcium 8.8 (8.5-10.1) mg/dL Total Bilirubin 1.1 H D (0.0-1.0) mg/dL AST 31 (15-37) U/L ALT 26 (12-78) U/L Alkaline Phosphatase 79 (46-116) U/L Troponin I < 0.017 (0.000-0.060) ng/mL Total Protein 7.3 (6.4-8.2) g/dL Albumin 3.5 (3.4-5.0) g/dL Globulin 3.8 (2.2-4.2) g/dL Albumin/Globulin Ratio 0.9 (0.8-2.0) Amylase 62 (25-115) U/L Lipase 210 (73-393) U/L Meds: Medications Discontinued Medications Generic Name Dose Route Start Last Admin Trade Name Freq PRN Reason Stop Dose Admin Hydromorphone HCl 2 mg 11/01/19 21:21 11/01/19 21:25 Dilaudid IVPUSH 11/01/19 21:22 1 mg ONETIME ONE Administration - Re-Assessments/Exams Free Text/Narrative Re-Assessment/Exam: 11/01/19 21:[address] Braga in [facility] - on by pass, no beds available, but recommended immediate transfer Spoke with Dr Carson from [facility] who advised transfer to his facility . A Free Text/Narrative Re-Assessment/Exam: 11/01/19 22:00 Pt was transferred by EMS to [place] where fixed wing [facility]. Departure - Departure Time of Disposition: 21:54 Disposition: DC/Tfer to Acute Hospital 02 Condition: Serious Clinical Impression: Small bowel obstruction due to adhesions, Bradycardia by electrocardiogram, Small bowel obstruction - Discharge Information *PRESCRIPTION DRUG MONITORING PROGRAM REVIEWED*: Not Applicable *COPY OF PRESCRIPTION DRUG MONITORING REPORT IN PATIENT LUIS: Not Applicable Instructions: Bowel Obstruction, [id number], Bradycardia, Adult, Abdominal Pain, Adult, [id number] Referrals: PCP,None [Primary Care Provider] - Sepsis Event Note (ED) - Focused Exam Vital Signs: Vital Signs Temp Pulse Resp BP Pulse Ox 11/01/19 20:11 98.4 F 39 L 19 142/61 H 99 - My Orders Last 24 Hours: My Active Orders 11/01/19 Chest Abdomen Pelvis wo Cont [CT] Stat 11/01/19 20:58 UA W/MICROSCOPIC [URIN] Stat - Assessment/Plan Last 24 Hours: My Active Orders 11/01/19 Chest Abdomen Pelvis wo Cont [CT] Stat 11/01/19 20:58 UA W/MICROSCOPIC [URIN] Stat
[2019-11-01] MEDS: HYDROmorphone 2 MG/ML SDV IVPUSH ONE (21:25)
[2019-11-01 22:15] VITALS: BP 124/66; PULSE 57
--- NOTE | 2019-11-02 14:23 | CT ---
DATE OF SERVICE: 11/01/19 CLINICAL DATA: CHEST AND ABDOMEN PAIN. UNENHANCED CHEST CT: Multislice acquisition through the chest without IV contrast was performed. No priors. There are emphysematous changes throughout both lungs. There are small areas of consolidation in both lungs. Pneumonia should be considered. 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 No pleural effusions. No pneumothorax. The heart size is normal. There are moderate coronary artery calcifications. No pericardial effusion. No hilar or mediastinal adenopathy. There is a small hiatal hernia. There is fluid noted within the mid and distal esophagus. This is probably related to GE reflux. No other significant findings. UNENHANCED ABDOMEN AND PELVIC CT: Multislice acquisition through the abdomen and pelvis without IV or oral contrast was performed. No priors. The liver is normal size. There is a 2.0 cm sharply transcribed fluid density lesion within the left lobe of the liver consistent in appearance with a benign hepatic cyst. No other focal hepatic lesions. The gallbladder is significantly distended. No calcified gallstones. No pericholecystic fluid. There are multiple calcifications within the spleen consistent with prior granulomatous disease. The spleen otherwise appears normal. The pancreas appears normal. No pancreatic duct dilatation. The right and left adrenals appear normal. There is atrophy of both kidneys. No nephrocalcinosis or nephrolithiasis. No hydronephrosis or hydroureter. There is a 2.5 cm rounded, low density lesion in the lower pole of the left kidney consistent with a renal cyst. There is a small low density lesion in the right kidney, which is most likely a cyst. The kidneys are otherwise unremarkable. The bladder is partially fluid filled. There is bladder wall thickening anteriorly. Direct visualization is recommended to exclude an infiltrating process. No evidence of appendicitis. There is a moderate amount of stool present throughout the colon. There is severe diverticulosis of the descending and sigmoid colon. No evidence of diverticulitis. No evidence of appendicitis. The prostate is enlarged. 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 It measures 3.2 cm in diameter. No free air. No free fluid. No dilated loops of bowel. No adenopathy. There is degenerative disk disease throughout the lower thoracic and lumbar spine. IMPRESSION: 1. Focal thickening of bladder wall anteriorly on the right. Urology consultation and direct visualization is recommended. 2. Markedly distended gallbladder. No gallstones. No pericholecystic fluid. 3. Other findings as discussed above. [id number] [facility]
== END 2019-11-01 22:18 ==
LOC: LB.ED 19:57
DX: K56.50 Intestinal adhesions [bands], unspecified as to partial versus complete obstruction (principal); R00.1 Bradycardia, unspecified; J44.9 Chronic obstructive pulmonary disease, unspecified; K21.9 Gastro-esophageal reflux disease without esophagitis; Z79.899 Other long term (current) drug therapy
CPT/HCPCS: 36415; 71250; 74176; 80053; 82150; 83690; 84484; 85025; 93005; 96374; 99285-25; A0425; A0429; J1170

== ENCOUNTER 2020-01-07 10:30 | Emergency (ER) | payer MEDICARE, OTHER ==
[2020-01-07] MEDS: Sodium Chloride 0.9% 1,000 ML IV SCH ×2 (12:21→13:40)
[2020-01-07 13:31] VITALS: BP 117/65; PULSE 59
[2020-01-07] MEDS: Dexamethasone 4 MG/ML SDV IVPUSH ONE (13:41)
--- NOTE | 2020-01-07 14:08 | ER ---
REASON FOR EMERGENCY ROOM VISIT: Weakness and cough. HISTORY: This 79-year-old woman was brought into the emergency department with his with similar symptoms. They have a granddaughter who yesterday was tested positive for COVID-19. They have had exposure to her, but it was not for over a week ago, however, and they have not seen her since. Nonetheless, over the past 2 or 3 weeks, he has been feeling progressive weakness and a loss of appetite with no other specific symptoms other than weakness and malaise. For the past several days, he has been coughing increasingly and his weakness increased. He has not been eating at all and drinking very little at least for the last day or so. This morning, he fell out of bed. The son was called and he elected to ask the ambulance service to come and get them because it was suspected they had COVID and he did not want to bring them in. At the present time, he is slow to respond verbally, but is nonetheless appropriate and appears to be somewhat lethargic. The ambulance crew, on arrival, checked his O2 sats and he was running in the high 80s, so they initiated oxygen therapy. PAST MEDICAL HISTORY: Significant for a history of anemia and muscles deconditioning. He has a history of delirium in the past. He has a history of small-bowel obstruction. MEDICATIONS: Reviewed. Please see EMR. They include the followin. Omeprazole 20 mg p.o. daily. 2. Fluticasone-salmeterol Diskus. 3. Various supplements. 4. Vitamins. ALLERGIES: NONE TO MEDICATIONS. REVIEW OF SYSTEMS: Pertinent positives and negatives as listed in the HPI. PHYSICAL EXAMINATION: GENERAL: He is reasonably alert, but slow to respond. VITAL SIGNS: He is afebrile. Heart rate is 60. Blood pressure initially was 180/65, repeat was 120/69. Respiratory rate was 20. O2 sats 95% on 4 L of O2 by nasal cannula. HEENT: No scleral icterus or conjunctivitis is noted. Oropharynx is dry. NECK: Supple with no JVD and no adenopathy. CHEST: Clear to auscultation with no wheezes, rhonchi, or rales. CARDIAC: Regular rate without murmur. ABDOMEN: Scaphoid, soft, and nondistended. Bowel sounds are present. Nontender. No hepatosplenomegaly. EXTREMITIES: Norphlet and warm with reasonably good perfusion and palpable pulses. NEUROLOGIC: He moves all 4 extremities to command. There is no facial asymmetry. LABORATORY DATA: His CBC shows he has no leukocytosis, but he does have a mild monocytosis on his differential. His hemoglobin is 13.3. His CMP is remarkable only and that his creatinine is 1.25 with an estimated GFR of 55. His liver enzymes are normal. He has no hypoalbuminemia. The C-reactive protein is 80.8, which is significantly elevated. SARS-CoV- 2 RNA rapid test was positive for COVID-19. A 12-lead EKG revealed no acute changes. A chest x-ray showed some patchy opacities to the lung alonso and a possible pleural-based collection in the lateral aspect of the left hemithorax. From what I could see, it looks like he has had a lot of old scarring there in looking at his previous x-ray. IMPRESSION: 1. Coronavirus disease 2019 with probable pneumonia. 2. Dehydration. 3. Hypoxemia. PLAN: Oxygen therapy was maintained and he maintained his O2 sats in the mid 90s, which is satisfactory. We went ahead and gave him 1 L of IV fluid as a bolus and will start him at 150 mL/h of normal saline. At the present time, arrangements are being made for him to be transported to [facility] in [place]. I am awaiting a call back from the hospitalist who will accept the patient in transfer. This was explained to the patient and his . They understand and agree with this plan. All questions were answered. WILDER /[id number]
--- NOTE | 2020-01-07 20:38 | CR ---
CLINICAL DATA: COVID symptoms. AP CHEST, 07 JANUARY 2020: Comparison is made to a prior exam dated 23 November 2018. The patient is rotated to the right. The patient has taken a poor inspiration. The heart remains enlarged, unchanged. The pulmonary vasculature appears mildly prominent. There are patchy densities in both mid and lower lungs. Pneumonia should be considered. No pneumothorax. No pleural effusions. Job: [id number] MTDD
== END 2020-01-07 14:35 ==
LOC: LB.ED 10:30
DX: U07.1 COVID-19 (principal); E86.0 Dehydration; R09.02 Hypoxemia; Z79.899 Other long term (current) drug therapy
CPT/HCPCS: 36415; 71045; 80053; 83605; 85025; 86140; 93005; 96361; 96374; 99285-25; J1100; J7030; U0002

== ENCOUNTER 2020-01-18 19:28 | Emergency (ER) | payer MEDICARE, OTHER ==
--- NOTE | 2020-01-18 20:43 | EDM.PDOC ---
ED HPI GENERAL MEDICAL PROBLEM - General Stated Complaint: Shortness of breath; weakness Time Seen by Provider: 01/18/20 20:30 Source of Information: Reports: Patient, EMS, Family History Limitations: Reports: No Limitations - History of Present Illness INITIAL COMMENTS - FREE TEXT/NARRATIVE: Patient is an 79 y/o male who presents for shortness of breath, weakness, and fever. He was discharged from [facility] yesterday and had been there for 10 days with COVID. Patient was discharged with decadron and 4 L oxygen. Son called and states that patient is weak and not keeping his oxygen on at home. He admits that they are unable to care for him. EMS transferred patient here and he was found to have a fever of 100.7. Patient denies any chest pain, abdominal pain, N/V/D, dizziness, or dysuria. Bilateral Lower Back Pain Score (Numeric/FACES): 3 - Related Data Allergies Allergy/AdvReac Type Severity Reaction Status Date / Time sulfamethoxazole Allergy Other Verified 01/18/20 22:35 [From Sulfamethoxazole-Trimethoprim] trimethoprim Allergy Other Verified 01/18/20 22:35 [From Sulfamethoxazole-Trimethoprim] Home Meds: Home Meds Fluticasone Propion/Salmeterol [Advair 250-50 Diskus] 1 puff IH BID 10/12/14 [History] Folic Acid 1 mg PO DAILY 10/12/14 [History] Methotrexate Sodium [Methotrexate] 25 mg PO WEEKLY 10/12/14 [History] Omeprazole 20 mg PO DAILY 10/12/14 [History] Tiotropium [Spiriva Handihaler] 18 mcg IH DAILY 10/12/14 [History] Clobetasol Propionate [Temovate 0.05% Oint] 15 gm TP DAILY 01/21/18 [History] Biotin 10,000 mcg PO DAILY 03/30/18 [History] Calcium Carbonate/Vitamin D3 [Calcium 1,000 + D3 Caplet] 1 each PO DAILY 03/30/18 [History] Cholecalciferol (Vitamin D3) [D3-2000] 2,000 units PO DAILY 03/30/18 [History] Vits A/C/E/B Complx/Min/Lutein [Lipotriad Caplet] 1 tab PO DAILY 03/30/18 [History] Acetaminophen [Tylenol] 650 mg PO Q4H PRN tablet 11/29/18 [Rx] Acidophilus/Lactobac Spor [Acidolphilus X-Strength] 1 tab PO DAILY tablet 11/29/18 [Rx] Calcium Carbonate/Vitamin D3 [Caltrate 600+D 1500 MG-400 Units] 1 tab PO DAILY tablet 12/03/18 [Rx] Alfuzosin [Uroxatral] 10 mg PO DAILY 01/18/20 [History] dexAMETHasone [Dexamethasone] 2 mg PO DAILY 01/18/20 [History] Past Medical History HEENT History: Reports: Cataract, Macular Degeneration Respiratory History: Reports: COPD, Other (See Below) Other Respiratory History: asbestosis Gastrointestinal History: Reports: GERD, Hiatal Hernia Other Gastrointestinal History: hx of GERD, GI scope to be done oct 23, 2014 in [facility] Other Musculoskeletal History: hx of scolosis, spinal stenosis Hematologic History: Reports: Folic Acid - Infectious Disease History Infectious Disease History: Reports: Chicken Pox, Measles, Mumps - Past Surgical History Respiratory Surgical History: Reports: None GI Surgical History: Reports: None, Colonoscopy Musculoskeletal Surgical History: Reports: None Social & Family History - Family History Family Medical History: No Pertinent Family History - Caffeine Use Caffeine Use: Reports: None ED ROS GENERAL - Review of Systems Review Of Systems: See Below Constitutional: Reports: Weakness HEENT: Reports: No Symptoms Respiratory: Reports: Shortness of Breath, Cough Cardiovascular: Reports: No Symptoms Endocrine: Reports: No Symptoms GI/Abdominal: Reports: No Symptoms : Reports: No Symptoms Musculoskeletal: Reports: No Symptoms Skin: Reports: No Symptoms Neurological: Reports: No Symptoms Psychiatric: Reports: No Symptoms ED EXAM, GENERAL - Physical Exam Exam: See Below Exam Limited By: No Limitations General Appearance: Alert, No Apparent Distress Head: Atraumatic, Normocephalic Neck: Normal Inspection, Supple, Non-Tender, Full Range of Motion Respiratory/Chest: No Respiratory Distress, No Accessory Muscle Use, Chest Non- Tender, Decreased Breath Sounds Cardiovascular: Normal Peripheral Pulses, Regular Rate, Rhythm, No Edema, No Murmur GI/Abdominal: Normal Bowel Sounds, Soft, Non-Tender, No Distention Extremities: Normal Inspection, Normal Range of Motion, Non-Tender, No Pedal Edema, Normal Capillary Refill Neurological: Alert, Oriented, CN II-XII Intact, Normal Cognition Psychiatric: Normal Affect, Normal Mood Skin Exam: Warm, Dry, Intact, Normal Color, No Rash Course - Vital Signs Text/Narrative:: Patient with leukocytosis, hypotension, fever, and tachypnea. 2 L NS given and systolic in the high 90s. Patient on 4 L of NC with saturations between 93-96%. [facility] are at capacity. Will transfer to [facility] - accepting physician Dr. Mccormick. Discussed with patient and son, they are agreeable to the plan. Azithromycin IV ordered. Last Recorded V/S: Last Vital Signs Temp 37.6 C 01/18/20 22:30 Pulse 81 01/18/20 22:30 Resp 28 H 01/18/20 22:30 BP 98/56 L 01/18/20 22:30 Pulse Ox 96 01/18/20 22:30 - Orders/Labs/Meds Orders: Active Orders 24 hr Category Date Time Status Azithromycin [Zithromax] 500 mg Med 01/18/20 23:04 Ordered Sodium Chloride 0.9% [Normal Saline (AdvBag)] 250 ml IV ONETIME Sodium Chloride 0.9% [Normal Saline] 1,000 ml Med 01/18/20 20:45 Active IV ASDIRECTED Sodium Chloride 0.9% [Normal Saline] 1,000 ml Med 01/18/20 23:15 Ordered IV ASDIRECTED Medication Orders Sodium Chloride (Normal Saline) 1,000 mls @ 1,000 mls/hr IV ASDIRECTED SHE Last Admin: 01/18/20 21:14 Dose: 1,000 mls/hr Documented by: ABBEY Sodium Chloride (Normal Saline) 1,000 mls @ 1,000 mls/hr IV ASDIRECTED SHE Azithromycin 500 mg/ Sodium (Chloride) 250 mls @ 250 mls/hr IV ONETIME ONE Stop: 01/19/20 00:03 Labs: Laboratory Tests 01/18/20 01/18/20 01/18/20 Range/Units 21:00 21:00 21:00 WBC 14.0 H D (4.0-11.0) K/uL RBC 3.73 L (4.50-6.50) M/uL Hgb 12.0 L (13.0-18.0) g/dL Hct 35.9 L (40.0-54.0) % MCV 96 (76-96) fL MCH 32.2 H (27.0-32.0) pg MCHC 33.4 (31.0-35.0) g/dL RDW 16.6 H (11.0-16.0) % Plt Count 207 D (150-400) K/uL MPV 11.0 H (6.0-10.0) fL Neut % (Auto) 79.9 H (45.0-70.0) % Lymph % (Auto) 10.7 L (20.0-40.0) % Pleasants % (Auto) 8.9 (3.0-10.0) % Eos % (Auto) 0.5 L (1.0-5.0) % Baso % (Auto) 0.0 (0.0-0.5) % Neut # (Auto) 11.16 H (2.00-7.50) K/uL Lymph # (Auto) 1.50 (1.50-4.00) K/uL [place] # (Auto) 1.24 H (0.20-0.80) K/uL Eos # (Auto) 0.07 (0.04-0.40) K/uL Baso # (Auto) 0.00 L (0.02-0.10) K/uL Sodium 141 (136-145) mmol/L Potassium 3.7 D (3.5-5.1) mmol/L Chloride 106 (98-107) mmol/L Carbon Dioxide 26.1 (21.0-32.0) mmol/L Anion Gap 12.6 (5.0-15.0) mmol/L BUN 25 (8-26) mg/dL Creatinine 1.12 (0.70-1.30) mg/dL Est Cr Clr Drug Dosing 49.78 mL/min Estimated GFR (MDRD) > 60 (>60) MLS/MIN BUN/Creatinine Ratio 22.3 (6-25) Glucose 94 (74-100) mg/dL Lactic Acid (0.4-2.0) mmol/L Calcium 8.0 L (8.5-10.1) mg/dL Total Bilirubin 1.6 H D (0.0-1.0) mg/dL AST 16 (15-37) U/L ALT 20 (12-78) U/L Alkaline Phosphatase 70 (46-116) U/L Total Protein 5.8 L (6.4-8.2) g/dL Albumin 2.2 L (3.4-5.0) g/dL Globulin 3.6 (2.2-4.2) g/dL Albumin/Globulin Ratio 0.6 L (0.8-2.0) Urine Color Urine Appearance (CLEAR) Urine pH (5.0-8.0) Ur Specific Providence (1.003-1.030) Urine Protein (NEGATIVE) mg/dL Urine Glucose (UA) (NEGATIVE) mg/dL Urine Ketones (NEGATIVE) mg/dL Urine Occult Blood (NEGATIVE) Urine Nitrite (NEGATIVE) Urine Bilirubin (NEGATIVE) Urine Urobilinogen (0.2-1.0) E.U./dL Ur Leukocyte Esterase (NEGATIVE) U Hyaline Cast (Auto) /HPF Urine RBC Urine WBC Urine Bacteria /HPF SARS CoV-2 RNA Rapid ELMA Positive H 01/18/20 01/18/20 Range/Units 21:00 22:05 WBC (4.0-11.0) K/uL RBC (4.50-6.50) M/uL Hgb (13.0-18.0) g/dL Hct (40.0-54.0) % MCV (76-96) fL MCH (27.0-32.0) pg MCHC (31.0-35.0) g/dL RDW (11.0-16.0) % Plt Count (150-400) K/uL MPV (6.0-10.0) fL Neut % (Auto) (45.0-70.0) % Lymph % (Auto) (20.0-40.0) % Pleas[place] % (Auto) (3.0-10.0) % Eos % (Auto) (1.0-5.0) % Baso % (Auto) (0.0-0.5) % Neut # (Auto) (2.00-7.50) K/uL Lymph # (Auto) (1.50-4.00) K/uL Ple[place] # (Auto) (0.20-0.80) K/uL Eos # (Auto) (0.04-0.40) K/uL Baso # (Auto) (0.02-0.10) K/uL Sodium (136-145) mmol/L Potassium (3.5-5.1) mmol/L Chloride (98-107) mmol/L Carbon Dioxide (21.0-32.0) mmol/L Anion Gap (5.0-15.0) mmol/L BUN (8-26) mg/dL Creatinine (0.70-1.30) mg/dL Est Cr Clr Drug Dosing mL/min Estimated GFR (MDRD) (>60) MLS/MIN BUN/Creatinine Ratio (6-25) Glucose (74-100) mg/dL Lactic Acid 1.3 (0.4-2.0) mmol/L Calcium (8.5-10.1) mg/dL Total Bilirubin (0.0-1.0) mg/dL AST (15-37) U/L ALT (12-78) U/L Alkaline Phosphatase (46-116) U/L Total Protein (6.4-8.2) g/dL Albumin (3.4-5.0) g/dL Globulin (2.2-4.2) g/dL Albumin/Globulin Ratio (0.8-2.0) Urine Color Yellow Urine Appearance Clear (CLEAR) Urine pH 8.5 H (5.0-8.0) Ur Specific [place] 1.020 (1.003-1.030) Urine Protein 30 H (NEGATIVE) mg/dL Urine Glucose (UA) Negative (NEGATIVE) mg/dL Urine Ketones Negative (NEGATIVE) mg/dL Urine Occult Blood Negative (NEGATIVE) Urine Nitrite Negative (NEGATIVE) Urine Bilirubin Small H (NEGATIVE) Urine Urobilinogen >=8.0 H (0.2-1.0) E.U./dL Ur Leukocyte Esterase Negative (NEGATIVE) U Hyaline Cast (Auto) Few /HPF Urine RBC Not Reportable Urine WBC Not Reportable Urine Bacteria Few /HPF SARS CoV-2 RNA Rapid ELMA Meds: Medications Generic Name Dose Route Start Last Admin Trade Name Freq PRN Reason Stop Dose Admin Sodium Chloride 1,000 mls @ 1,000 mls/hr 01/18/20 20:45 01/18/20 21:14 Normal Saline IV 1,000 mls/hr ASDIRECTED SHE Administration Sodium Chloride 1,000 mls @ 1,000 mls/hr 01/18/20 23:15 Normal Saline IV ASDIRECTED SHE Azithromycin 500 mg/ Sodium 250 mls @ 250 mls/hr 01/18/20 23:04 Chloride IV 01/19/20 00:03 ONETIME ONE Departure - Departure Time of Disposition: 23:30 Disposition: DC/Tfer to Acute Hospital 02 Condition: Fair Clinical Impression: COVID-19 Sepsis Qualifiers: Sepsis type: sepsis due to unspecified organism Sepsis acute organ dysfunction status: without acute organ dysfunction Qualified Code(s): A41.9 - Sepsis, unspecified organism - Discharge Information *PRESCRIPTION DRUG MONITORING PROGRAM REVIEWED*: Not Applicable *COPY OF PRESCRIPTION DRUG MONITORING REPORT IN PATIENT LUIS: Not Applicable Sepsis Event Note (ED) - Focused Exam Vital Signs: Vital Signs Temp Pulse Resp BP Pulse Ox 01/18/20 22:30 37.6 C 81 28 H 98/56 L 96 01/18/20 22:22 37.6 C 86 28 H 96 01/18/20 21:54 37.2 C 85 32 H 104/67 96 01/18/20 20:45 38.2 C H 110 H 28 H 94/64 93 L - My Orders Last 24 Hours: My Active Orders 01/18/20 20:45 Sodium Chloride 0.9% [Normal Saline] 1,000 ml IV ASDIRECTED 01/18/20 23:04 Azithromycin [Zithromax] 500 mg Sodium Chloride 0.9% [Normal Saline (AdvBag)] 250 ml IV ONETIME 01/18/20 23:15 Sodium Chloride 0.9% [Normal Saline] 1,000 ml IV ASDIRECTED - Assessment/Plan Last 24 Hours: My Active Orders 01/18/20 20:45 Sodium Chloride 0.9% [Normal Saline] 1,000 ml IV ASDIRECTED 01/18/20 23:04 Azithromycin [Zithromax] 500 mg Sodium Chloride 0.9% [Normal Saline (AdvBag)] 250 ml IV ONETIME 01/18/20 23:15 Sodium Chloride 0.9% [Normal Saline] 1,000 ml IV ASDIRECTED
[2020-01-18] MEDS ORDERED: Sodium Chloride 0.9% 1,000 ML IV SCH ×2 (20:45→23:15)
--- NOTE | 2020-01-18 21:46 | CR ---
CLINICAL DATA: SOB; hypoxia; fever. AP CHEST, 18 JANUARY 2020: Comparison is made to a prior exam dated 07 January 2020. There are patchy infiltrates in both lungs with progression from the prior study. No other interval changes. Job: [id number] [facility]
[2020-01-18] MEDS ORDERED: Azithromycin 500 MG in Sodium Chloride 0.9% 250 ML IV ONE (23:04)
[2020-01-19 02:18] VITALS: BP 110/68; PULSE 66
== END 2020-01-19 02:45 ==
LOC: LB.ED 19:28
DX: A41.89 Other specified sepsis (principal); U07.1 COVID-19; J44.9 Chronic obstructive pulmonary disease, unspecified; K21.9 Gastro-esophageal reflux disease without esophagitis; D72.829 Elevated white blood cell count, unspecified; I95.9 Hypotension, unspecified; Z88.2 Allergy status to sulfonamides; Z79.899 Other long term (current) drug therapy
CPT/HCPCS: 36415; 71045; 80053; 81001; 83605; 85025; 96365; 99285-25; J0456; J7030; J7050; U0002

== ENCOUNTER 2021-06-10 14:58 | Emergency (ER) | payer MEDICARE ==
[2021-06-10 15:50] VITALS: BP 137/68
== END 2021-06-10 17:00 | disposition home or self-care (01) ==
LOC: LB.ED 14:58
DX: J06.9 Acute upper respiratory infection, unspecified (principal); J44.9 Chronic obstructive pulmonary disease, unspecified; K21.9 Gastro-esophageal reflux disease without esophagitis; Z86.16 Personal history of COVID-19; Z88.1 Allergy status to other antibiotic agents; Z79.899 Other long term (current) drug therapy; Z20.822 Contact with and (suspected) exposure to COVID-19
CPT/HCPCS: 36415; 80048; 85025; 85651; 86140; 87081; 87430; 99282; 99283; U0002

== ENCOUNTER 2022-08-03 22:05 | Inpatient (IN) | payer MEDICARE ==
[2022-08-03] MEDS ORDERED: Sodium Chloride 0.9% 1,000 ML IV SCH (22:30)
[2022-08-03 22:32] LABS: HEMATOCRIT 32.3 % (40.0-54.0); HEMOGLOBIN 11.1 g/dL (13.0-18.0); MEAN CORPUSCULAR HEMOGLOBIN 33.3 pg (27.0-32.0); MEAN CORPUSCULAR HGB CONC 34.4 g/dL (31.0-35.0); MEAN PLATELET VOLUME 11.5 fL (6.0-10.0); RED BLOOD CELL COUNT 3.33 M/uL (4.50-6.50); RED CELL DISTRIBUTION WIDTH 16.1 % (11.0-16.0); WHITE BLOOD CELL COUNT,WBC 9.6 K/uL (4.0-11.0)
[2022-08-03 22:57] LABS: A/G RATIO 0.6 (0.8-2.0); ALBUMIN 2.4 g/dL (3.4-5.0); ANION GAP 14.2 mmol/L (5.0-15.0); BILIRUBIN TOTAL 1.1 mg/dL (0.0-1.0); BUN/CREATININE RATIO 38.7 (6-25); CALCIUM 8.8 mg/dL (8.5-10.1); CARBON DIOXIDE,CO2 24.6 mmol/L (21.0-32.0); CREATININE 0.93 mg/dL (0.70-1.30); EST CRCL DRUG DOSING (CG) 53.11 mL/min; PHOSPHORUS 2.5 mg/dL (2.5-4.9); POTASSIUM,K 3.8 mmol/L (3.5-5.1); PROTEIN TOTAL,TP 6.7 g/dL (6.4-8.2); TROPONIN I HIGH SENSITIVITY 9.8 pg/ml (<=60.4)
[2022-08-04] MEDS: Sodium Chloride 0.9% 1,000 ML IV SCH ×3 (00:30→23:32)
[2022-08-04 06:45] LABS: APPEARANCE,URINE CLEAR (CLEAR); BILIRUBIN,URINE SMALL (NEGATIVE); GLUCOSE,URINE NEGATIVE (NEGATIVE); KETONES,URINE 15 mg/dL (NEGATIVE); LEUKOCYTE ESTERASE,URINE NEGATIVE (NEGATIVE); NITRITE,URINE NEGATIVE (NEGATIVE); OCCULT BLOOD,URINE NEGATIVE (NEGATIVE); PH,URINE 5.5 (5.0-8.0); PROTEIN,URINE 100 mg/dL (NEGATIVE)
[2022-08-04 06:51] LABS: MUCUS,URINE MODERATE /HPF; RBC,URINE 0-5 /HPF; WBC,URINE NOT SEEN /HPF
[2022-08-04] MEDS: Acetaminophen 325 MG Tab PO PRN ×2 (09:06→23:33)
[2022-08-04] MEDS: Albuterol/Ipratropium 3.0-0.5 MG/3 ML Neb Soln NEB PRN ×3 (09:27→20:07)
[2022-08-04] MEDS: Diphenhydramine/Lidocaine/Nystatin Suspension 237 ML Bottle PO SCH (14:44)
[2022-08-04] MEDS ORDERED: Nystatin Susp 100,000 Unit/ML 5 ML UD Cup PO SCH (14:47)
[2022-08-04] MEDS: Nystatin Susp 100,000 Unit/ML 5 ML UD Cup PO SCH ×3 (15:24→20:07)
[2022-08-04] MEDS ORDERED: Non-Formulary Medication 1 Each PO SCH (16:00)
[2022-08-04] MEDS ORDERED: Diphenhydramine/Lidocaine/Nystatin Suspension 237 ML Bottle PO SCH (16:00)
[2022-08-05 08:03] LABS: HEMATOCRIT 28.2 % (40.0-54.0); HEMOGLOBIN 9.4 g/dL (13.0-18.0); MEAN CORPUSCULAR HEMOGLOBIN 33.3 pg (27.0-32.0); MEAN CORPUSCULAR HGB CONC 33.3 g/dL (31.0-35.0); MEAN PLATELET VOLUME 11.5 fL (6.0-10.0); RED BLOOD CELL COUNT 2.82 M/uL (4.50-6.50); WHITE BLOOD CELL COUNT,WBC 6.9 K/uL (4.0-11.0)
[2022-08-05 08:28] LABS: ANION GAP 9.1 mmol/L (5.0-15.0); BUN/CREATININE RATIO 35.2 (6-25); CARBON DIOXIDE,CO2 25.4 mmol/L (21.0-32.0); CREATININE 0.71 mg/dL (0.70-1.30); EST CRCL DRUG DOSING (CG) 69.57 mL/min; POTASSIUM,K 3.5 mmol/L (3.5-5.1)
[2022-08-05] MEDS: Acetaminophen 325 MG Tab PO PRN (08:29)
[2022-08-05] MEDS: Nystatin Susp 100,000 Unit/ML 5 ML UD Cup PO SCH ×3 (08:29→19:16)
[2022-08-05] MEDS ORDERED: Non-Formulary Medication 1 Each (Tiotropium [Spiriva Handihaler] 18 MCG Kit) IH SCH (10:15)
[2022-08-05] MEDS ORDERED: Tiotropium Inhaler 18 MCG Inhalation Powder Cap Kit of 5 ONE (10:51)
[2022-08-05] MEDS: ALFUZOSIN 10 MG PO SCH (10:53)
[2022-08-05] MEDS: Omeprazole 20 MG Cap.CR PO SCH (10:53)
[2022-08-05] MEDS: Tiotropium Inhaler 18 MCG Inhalation Powder Cap Kit of 5 INH SCH (10:53)
[2022-08-05] MEDS: Cholecalciferol (Vitamin D3) 2,000 Unit Cap PO SCH (10:54)
[2022-08-05] MEDS: Folic Acid 1 MG Tab PO SCH (10:54)
[2022-08-05] MEDS: Finasteride 5 MG Tab PO SCH (10:54)
[2022-08-05] MEDS: Calcium Carbonate 600 MG Tab PO SCH (10:54)
[2022-08-05] MEDS: Cyanocobalamin (Vitamin B12) 1,000 MCG Tab PO SCH (10:54)
[2022-08-05] MEDS: Sodium Chloride 0.9% 1,000 ML IV SCH ×2 (11:01→23:17)
[2022-08-05] MEDS ORDERED: Loperamide 2 MG Cap PO PRN (12:51)
[2022-08-05] MEDS ORDERED: METHOTREXATE SODIUM 2.5 MG PO SCH (13:00)
[2022-08-05] MEDS: Albuterol/Ipratropium 3.0-0.5 MG/3 ML Neb Soln NEB PRN ×2 (16:35→22:20)
[2022-08-06] MEDS: Acetaminophen 325 MG Tab PO PRN (01:58)
[2022-08-06] MEDS: Albuterol/Ipratropium 3.0-0.5 MG/3 ML Neb Soln NEB PRN ×2 (06:35→19:17)
[2022-08-06] MEDS: Finasteride 5 MG Tab PO SCH (08:13)
[2022-08-06] MEDS: ALFUZOSIN 10 MG PO SCH (08:13)
[2022-08-06] MEDS: Calcium Carbonate 600 MG Tab PO SCH (08:13)
[2022-08-06] MEDS: Folic Acid 1 MG Tab PO SCH (08:13)
[2022-08-06] MEDS: Cholecalciferol (Vitamin D3) 2,000 Unit Cap PO SCH (08:13)
[2022-08-06] MEDS: Omeprazole 20 MG Cap.CR PO SCH (08:13)
[2022-08-06] MEDS: Cyanocobalamin (Vitamin B12) 1,000 MCG Tab PO SCH (08:13)
[2022-08-06] MEDS: Nystatin Susp 100,000 Unit/ML 5 ML UD Cup PO SCH ×4 (08:13→19:17)
[2022-08-06] MEDS: Tiotropium Inhaler 18 MCG Inhalation Powder Cap Kit of 5 INH SCH (08:14)
[2022-08-06 08:37] LABS: HEMATOCRIT 25.6 % (40.0-54.0); HEMOGLOBIN 8.4 g/dL (13.0-18.0); MEAN CORPUSCULAR HEMOGLOBIN 33.3 pg (27.0-32.0); MEAN CORPUSCULAR HGB CONC 32.8 g/dL (31.0-35.0); MEAN PLATELET VOLUME 11.1 fL (6.0-10.0); RED BLOOD CELL COUNT 2.52 M/uL (4.50-6.50); RED CELL DISTRIBUTION WIDTH 15.9 % (11.0-16.0); WHITE BLOOD CELL COUNT,WBC 6.4 K/uL (4.0-11.0)
[2022-08-06 09:07] LABS: ANION GAP 7.7 mmol/L (5.0-15.0); BUN/CREATININE RATIO 22.8 (6-25); CALCIUM 7.9 mg/dL (8.5-10.1); CARBON DIOXIDE,CO2 25.2 mmol/L (21.0-32.0); CREATININE 0.79 mg/dL (0.70-1.30); EST CRCL DRUG DOSING (CG) 62.52 mL/min; MAGNESIUM 1.7 mg/dL (1.8-2.4); PHOSPHORUS 2.5 mg/dL (2.5-4.9); POTASSIUM,K 3.9 mmol/L (3.5-5.1); TROPONIN I HIGH SENSITIVITY 7.8 pg/ml (<=60.4)
[2022-08-06] MEDS: Enoxaparin 30 MG/0.3 ML Syringe SUBCUT SCH (09:17)
[2022-08-06] MEDS ORDERED: Iodixanol 550 MG/ML 100 ML Bottle IV SCH (10:39)
[2022-08-06] MEDS ORDERED: Sodium Chloride 0.9% 50 ML SDV FLUSH ONE (11:23)
[2022-08-06] MEDS ORDERED: Iodixanol 652 MG/ML 100 ML Bottle IV SCH (11:30)
[2022-08-06] MEDS: Magnesium Oxide 400 MG Tab PO SCH (13:19)
[2022-08-06] MEDS: Sodium Chloride 0.9% 10 ML Syringe FLUSH PRN (13:19)
[2022-08-06] MEDS: Ferrous Sulfate 325 MG Tab PO SCH (16:16)
[2022-08-07] MEDS: ALFUZOSIN 10 MG PO SCH (07:36)
[2022-08-07] MEDS: Nystatin Susp 100,000 Unit/ML 5 ML UD Cup PO SCH ×4 (07:36→19:58)
[2022-08-07] MEDS: Magnesium Oxide 400 MG Tab PO SCH (07:36)
[2022-08-07] MEDS: Tiotropium Inhaler 18 MCG Inhalation Powder Cap Kit of 5 INH SCH (07:36)
[2022-08-07] MEDS: Finasteride 5 MG Tab PO SCH (07:37)
[2022-08-07] MEDS: Omeprazole 20 MG Cap.CR PO SCH (07:37)
[2022-08-07] MEDS: Cyanocobalamin (Vitamin B12) 1,000 MCG Tab PO SCH (07:37)
[2022-08-07] MEDS: Folic Acid 1 MG Tab PO SCH (07:37)
[2022-08-07] MEDS: Calcium Carbonate 600 MG Tab PO SCH (07:37)
[2022-08-07] MEDS: Cholecalciferol (Vitamin D3) 2,000 Unit Cap PO SCH (07:37)
[2022-08-07] MEDS: Ferrous Sulfate 325 MG Tab PO SCH ×2 (07:37→19:57)
[2022-08-07] MEDS: Enoxaparin 30 MG/0.3 ML Syringe SUBCUT SCH (07:37)
[2022-08-08 07:37] LABS: HEMATOCRIT 26.1 % (40.0-54.0); HEMOGLOBIN 8.6 g/dL (13.0-18.0); MEAN CORPUSCULAR HEMOGLOBIN 33.3 pg (27.0-32.0); MEAN PLATELET VOLUME 10.9 fL (6.0-10.0); RED BLOOD CELL COUNT 2.58 M/uL (4.50-6.50); WHITE BLOOD CELL COUNT,WBC 5.1 K/uL (4.0-11.0)
[2022-08-08] MEDS: ALFUZOSIN 10 MG PO SCH (07:37)
[2022-08-08] MEDS: Magnesium Oxide 400 MG Tab PO SCH (07:37)
[2022-08-08] MEDS: Enoxaparin 30 MG/0.3 ML Syringe SUBCUT SCH (07:37)
[2022-08-08] MEDS: Nystatin Susp 100,000 Unit/ML 5 ML UD Cup PO SCH (07:37)
[2022-08-08] MEDS: Cyanocobalamin (Vitamin B12) 1,000 MCG Tab PO SCH (07:37)
[2022-08-08] MEDS: Finasteride 5 MG Tab PO SCH (07:37)
[2022-08-08] MEDS: Tiotropium Inhaler 18 MCG Inhalation Powder Cap Kit of 5 INH SCH (07:38)
[2022-08-08] MEDS: Folic Acid 1 MG Tab PO SCH (07:38)
[2022-08-08] MEDS: Cholecalciferol (Vitamin D3) 2,000 Unit Cap PO SCH (07:38)
[2022-08-08] MEDS: Ferrous Sulfate 325 MG Tab PO SCH (07:38)
[2022-08-08] MEDS: Omeprazole 20 MG Cap.CR PO SCH (07:38)
[2022-08-08] MEDS: Calcium Carbonate 600 MG Tab PO SCH (07:38)
[2022-08-08] MEDS: Sodium Chloride 0.9% 10 ML Syringe FLUSH PRN (07:40)
[2022-08-08 07:41] VITALS: BP 120/67; PULSE 63
[2022-08-08 08:06] LABS: ANION GAP 8.4 mmol/L (5.0-15.0); BUN/CREATININE RATIO 10.1 (6-25); CALCIUM 8.3 mg/dL (8.5-10.1); CARBON DIOXIDE,CO2 28.8 mmol/L (21.0-32.0); CREATININE 0.79 mg/dL (0.70-1.30); EST CRCL DRUG DOSING (CG) 63.6 mL/min; MAGNESIUM 1.9 mg/dL (1.8-2.4); POTASSIUM,K 4.2 mmol/L (3.5-5.1)
[2022-08-08] MEDS ORDERED: UROXATRAL 10 MG PO SCH (16:00)
[2022-08-08] MEDS ORDERED: Finasteride 5 MG Tab PO SCH (16:00)
== END 2022-08-08 14:30 | disposition home or self-care (01) | DRG 683 ==
LOC: LB.ED 22:05 → LB.MS 23:45
PROVIDERS: ADMIT Surgery; ATTEND Surgery
DX: N17.9 Acute kidney failure, unspecified (principal); B37.0 Candidal stomatitis; R64 Cachexia; E46 Unspecified protein-calorie malnutrition; R53.1 Weakness; J43.9 Emphysema, unspecified; J61 Pneumoconiosis due to asbestos and other mineral fibers; I95.9 Hypotension, unspecified; D64.9 Anemia, unspecified; E86.0 Dehydration; R63.4 Abnormal weight loss; Z85.828 Personal history of other malignant neoplasm of skin; Z88.2 Allergy status to sulfonamides; J44.9 Chronic obstructive pulmonary disease, unspecified; Z87.891 Personal history of nicotine dependence; M06.9 Rheumatoid arthritis, unspecified; Z68.21 Body mass index [BMI] 21.0-21.9, adult; K21.9 Gastro-esophageal reflux disease without esophagitis; Z79.899 Other long term (current) drug therapy; Z86.16 Personal history of COVID-19
CPT/HCPCS: 36415; 71045; 80053; 81001; 83735; 83880; 84100; 84484; 85027; 93005; 93010; 96360; 99285; A0425; A0429; J7030; 71260; 80048; 85379; 97161-GP; 97166-GO; 97530-GO; 97530-GP; 97535-GO; 99222; 99232; 99238; A9270-GY; J1650; J3490; J7620

== ENCOUNTER 2022-09-24 09:23 | Emergency (ER) | payer MEDICARE ==
[2022-09-24] MEDS ORDERED: Sodium Chloride 0.9% 10 ML Syringe FLUSH PRN (10:09)
[2022-09-24 10:12] VITALS: BP 116/72; PULSE 75
[2022-09-24 10:24] LABS: BASOPHILS ABSOLUTE AUTO 0.01 K/uL (0.02-0.10); BASOPHILS PERCENT AUTO 0.3 % (0.0-0.5); EOSINOPHILS ABSOLUTE AUTO 0.15 K/uL (0.04-0.40); EOSINOPHILS PERCENT AUTO 4.4 % (1.0-5.0); HEMATOCRIT 28.1 % (40.0-54.0); HEMOGLOBIN 9.4 g/dL (13.0-18.0); LYMPHOCYTES ABSOLUTE AUTO 1.28 K/uL (1.50-4.00); LYMPHOCYTES PERCENT AUTO 37.8 % (20.0-40.0); MEAN CORPUSCULAR HEMOGLOBIN 33.7 pg (27.0-32.0); MEAN CORPUSCULAR HGB CONC 33.5 g/dL (31.0-35.0); MEAN CORPUSCULAR VOLUME 101 fL (76-96); MEAN PLATELET VOLUME 10.6 fL (6.0-10.0); MONOCYTES ABSOLUTE AUTO 0.57 K/uL (0.20-0.80); MONOCYTES PERCENT AUTO 16.8 % (3.0-10.0); NEUTROPHILS ABSOLUTE AUTO 1.38 K/uL (2.00-7.50); NEUTROPHILS PERCENT AUTO 40.7 % (45.0-70.0); PLATELET COUNT,PLT 147 K/uL (150-400); RED BLOOD CELL COUNT 2.79 M/uL (4.50-6.50); WHITE BLOOD CELL COUNT,WBC 3.4 K/uL (4.0-11.0)
[2022-09-24 10:48] LABS: APPEARANCE,URINE CLEAR (CLEAR); BILIRUBIN,URINE NEGATIVE (NEGATIVE); COLOR,URINE YELLOW; GLUCOSE,URINE NEGATIVE (NEGATIVE); KETONES,URINE NEGATIVE (NEGATIVE); LEUKOCYTE ESTERASE,URINE NEGATIVE (NEGATIVE); NITRITE,URINE NEGATIVE (NEGATIVE); OCCULT BLOOD,URINE NEGATIVE (NEGATIVE); PH,URINE 7.5 (5.0-8.0); PROTEIN,URINE NEGATIVE (NEGATIVE)
[2022-09-24 10:55] LABS: A/G RATIO 0.6 (0.8-2.0); ALBUMIN 2.4 g/dL (3.4-5.0); ANION GAP 9.8 mmol/L (5.0-15.0); BILIRUBIN TOTAL 0.6 mg/dL (0.0-1.0); BUN/CREATININE RATIO 15.3 (6-25); CALCIUM 9.1 mg/dL (8.5-10.1); CARBON DIOXIDE,CO2 29.5 mmol/L (21.0-32.0); CREATININE 0.85 mg/dL (0.70-1.30); EST CRCL DRUG DOSING (CG) 58.11 mL/min; PHOSPHORUS 2.9 mg/dL (2.5-4.9); POTASSIUM,K 4.3 mmol/L (3.5-5.1); PROTEIN TOTAL,TP 6.5 g/dL (6.4-8.2)
== END 2022-09-24 12:15 | disposition home or self-care (01) ==
LOC: LB.ED 09:23
DX: K59.00 Constipation, unspecified (principal); K21.9 Gastro-esophageal reflux disease without esophagitis; J44.9 Chronic obstructive pulmonary disease, unspecified; Z86.16 Personal history of COVID-19; Z88.1 Allergy status to other antibiotic agents; Z79.899 Other long term (current) drug therapy; Z87.891 Personal history of nicotine dependence
CPT/HCPCS: 36415; 74176; 80053; 81003; 83605; 83735; 84100; 85025; 99284

== ENCOUNTER 2022-09-28 14:15 | Inpatient (IN) | payer MEDICARE ==
[2022-09-28 14:56] LABS: BASOPHILS ABSOLUTE AUTO 0.01 K/uL (0.02-0.10); BASOPHILS PERCENT AUTO 0.1 % (0.0-0.5); EOSINOPHILS ABSOLUTE AUTO 0.01 K/uL (0.04-0.40); EOSINOPHILS PERCENT AUTO 0.1 % (1.0-5.0); HEMATOCRIT 28.1 % (40.0-54.0); HEMOGLOBIN 9.4 g/dL (13.0-18.0); LYMPHOCYTES ABSOLUTE AUTO 0.43 K/uL (1.50-4.00); LYMPHOCYTES PERCENT AUTO 4.9 % (20.0-40.0); MEAN CORPUSCULAR HEMOGLOBIN 33.5 pg (27.0-32.0); MEAN CORPUSCULAR HGB CONC 33.5 g/dL (31.0-35.0); MEAN CORPUSCULAR VOLUME 100 fL (76-96); MEAN PLATELET VOLUME 9.6 fL (6.0-10.0); MONOCYTES ABSOLUTE AUTO 1.28 K/uL (0.20-0.80); MONOCYTES PERCENT AUTO 14.7 % (3.0-10.0); NEUTROPHILS ABSOLUTE AUTO 6.99 K/uL (2.00-7.50); NEUTROPHILS PERCENT AUTO 80.2 % (45.0-70.0); PLATELET COUNT,PLT 414 K/uL (150-400); RED BLOOD CELL COUNT 2.81 M/uL (4.50-6.50); RED CELL DISTRIBUTION WIDTH 16.1 % (11.0-16.0); WHITE BLOOD CELL COUNT,WBC 8.7 K/uL (4.0-11.0)
[2022-09-28] MEDS ORDERED: Sodium Chloride 0.9% 1,000 ML IV SCH ×2 (15:00)
[2022-09-28 15:23] LABS: A/G RATIO 0.6 (0.8-2.0); ALANINE AMINOTRANSFERASE,ALT 17 U/L (12-78); ALBUMIN 2.3 g/dL (3.4-5.0); ALKALINE PHOSPHATASE 104 U/L (46-116); ANION GAP 10.1 mmol/L (5.0-15.0); ASPARTATE AMNIOTRANSFERASE,AST 13 U/L (15-37); BILIRUBIN TOTAL 0.6 mg/dL (0.0-1.0); BLOOD UREA NITROGEN,BUN 15 mg/dL (8-26); BUN/CREATININE RATIO 16.7 (6-25); CALCIUM 8.6 mg/dL (8.5-10.1); CARBON DIOXIDE,CO2 25.2 mmol/L (21.0-32.0); CHLORIDE,CL 97 mmol/L (98-107); ESTIMATED GFR 84 mL/min (>60); GLUCOSE RANDOM 74 mg/dL (74-100); POTASSIUM,K 4.3 mmol/L (3.5-5.1); SODIUM,NA 128 mmol/L (136-145)
[2022-09-28 16:35] LABS: CORONAVIRUS COVID-19 NAA NEGATIVE (NEGATIVE); INFLUENZA A NAA NEGATIVE (NEGATIVE); INFLUENZA B NAA NEGATIVE (NEGATIVE)
[2022-09-28] MEDS: cefTRIAXone 2 GM in Sodium Chloride 0.9% 100 ML IV SCH (18:04)
[2022-09-28] MEDS: Azithromycin 500 MG in Sodium Chloride 0.9% 250 ML IV SCH (19:13)
[2022-09-28] MEDS: Sodium Chloride 0.9% 1,000 ML IV SCH (21:50)
[2022-09-29] MEDS: Sodium Chloride 0.9% 1,000 ML IV SCH ×2 (06:27→17:10)
[2022-09-29] MEDS ORDERED: METHOTREXATE SODIUM 2.5 MG PO SCH (07:00)
[2022-09-29] MEDS ORDERED: Finasteride 5 MG Tab PO SCH (08:00)
[2022-09-29] MEDS ORDERED: ALFUZOSIN 10 MG PO SCH (08:00)
[2022-09-29] MEDS ORDERED: Folic Acid 1 MG Tab PO SCH (08:00)
[2022-09-29 08:02] LABS: BASOPHILS ABSOLUTE AUTO 0.02 K/uL (0.02-0.10); BASOPHILS PERCENT AUTO 0.2 % (0.0-0.5); EOSINOPHILS ABSOLUTE AUTO 0.07 K/uL (0.04-0.40); EOSINOPHILS PERCENT AUTO 0.7 % (1.0-5.0); HEMATOCRIT 25.4 % (40.0-54.0); HEMOGLOBIN 8.2 g/dL (13.0-18.0); LYMPHOCYTES ABSOLUTE AUTO 1.33 K/uL (1.50-4.00); LYMPHOCYTES PERCENT AUTO 13.9 % (20.0-40.0); MEAN CORPUSCULAR HEMOGLOBIN 33.2 pg (27.0-32.0); MEAN CORPUSCULAR HGB CONC 32.3 g/dL (31.0-35.0); MEAN CORPUSCULAR VOLUME 103 fL (76-96); MEAN PLATELET VOLUME 9.6 fL (6.0-10.0); MONOCYTES ABSOLUTE AUTO 1.26 K/uL (0.20-0.80); MONOCYTES PERCENT AUTO 13.2 % (3.0-10.0); NEUTROPHILS ABSOLUTE AUTO 6.89 K/uL (2.00-7.50); PLATELET COUNT,PLT 410 K/uL (150-400); RED BLOOD CELL COUNT 2.47 M/uL (4.50-6.50); RED CELL DISTRIBUTION WIDTH 16.5 % (11.0-16.0); WHITE BLOOD CELL COUNT,WBC 9.6 K/uL (4.0-11.0)
[2022-09-29 08:17] LABS: ANION GAP 8.1 mmol/L (5.0-15.0); BUN/CREATININE RATIO 21.5 (6-25); CALCIUM 8.5 mg/dL (8.5-10.1); CARBON DIOXIDE,CO2 28.1 mmol/L (21.0-32.0); CREATININE 0.79 mg/dL (0.70-1.30); EST CRCL DRUG DOSING (CG) 55.04 mL/min; POTASSIUM,K 4.2 mmol/L (3.5-5.1)
[2022-09-29 08:24] LABS: APPEARANCE,URINE CLEAR (CLEAR); BILIRUBIN,URINE NEGATIVE (NEGATIVE); COLOR,URINE YELLOW; GLUCOSE,URINE NEGATIVE (NEGATIVE); KETONES,URINE NEGATIVE (NEGATIVE); LEUKOCYTE ESTERASE,URINE NEGATIVE (NEGATIVE); NITRITE,URINE NEGATIVE (NEGATIVE); OCCULT BLOOD,URINE NEGATIVE (NEGATIVE); PROTEIN,URINE NEGATIVE (NEGATIVE)
[2022-09-29 08:28] LABS: RBC,URINE 0-5 /HPF; WBC,URINE NOT SEEN /HPF
[2022-09-29] MEDS: Non-Formulary Medication 1 Each (Revefenacin [Yupelri] 175 MCG/3 ML Neb) INH SCH (09:35)
[2022-09-29] MEDS: Nystatin Susp 100,000 Unit/ML 5 ML UD Cup PO SCH ×4 (09:35→20:14)
[2022-09-29] MEDS: Albuterol 0.083% 2.5 MG/3 ML Neb Soln INH PRN (09:35)
[2022-09-29] MEDS: Calcium Carbonate 600 MG Tab PO SCH (09:36)
[2022-09-29] MEDS: Cyanocobalamin (Vitamin B12) 1,000 MCG Tab PO SCH (09:36)
[2022-09-29] MEDS: Omeprazole 20 MG Cap.CR PO SCH (09:36)
[2022-09-29] MEDS: Cholecalciferol (Vitamin D3) 2,000 Unit Cap PO SCH (09:36)
[2022-09-29] MEDS: ALFUZOSIN 10 MG PO SCH (19:04)
[2022-09-29] MEDS: cefTRIAXone 2 GM in Sodium Chloride 0.9% 100 ML IV SCH (19:05)
[2022-09-29] MEDS: Finasteride 5 MG Tab PO SCH (19:05)
[2022-09-29] MEDS: Azithromycin 500 MG in Sodium Chloride 0.9% 250 ML IV SCH (20:13)
[2022-09-30] MEDS: Sodium Chloride 0.9% 1,000 ML IV SCH (04:17)
[2022-09-30] MEDS: Non-Formulary Medication 1 Each (Revefenacin [Yupelri] 175 MCG/3 ML Neb) INH SCH (07:20)
[2022-09-30] MEDS: Cholecalciferol (Vitamin D3) 2,000 Unit Cap PO SCH (07:29)
[2022-09-30] MEDS: Cyanocobalamin (Vitamin B12) 1,000 MCG Tab PO SCH (07:29)
[2022-09-30] MEDS: Omeprazole 20 MG Cap.CR PO SCH (07:29)
[2022-09-30] MEDS: Nystatin Susp 100,000 Unit/ML 5 ML UD Cup PO SCH ×2 (07:30→12:51)
[2022-09-30] MEDS: Calcium Carbonate 600 MG Tab PO SCH (07:30)
[2022-09-30] MEDS: Folic Acid 1 MG Tab PO SCH (09:55)
[2022-09-30] MEDS ORDERED: Nystatin Susp 100,000 Unit/ML 5 ML UD Cup PO PRN (17:43)
[2022-09-30] MEDS ORDERED: Azithromycin 250 MG Tab ONE (18:24)
[2022-09-30] MEDS: Azithromycin 250 MG Tab PO SCH (18:27)
[2022-09-30] MEDS: Finasteride 5 MG Tab PO SCH (18:27)
[2022-09-30] MEDS: ALFUZOSIN 10 MG PO SCH (18:28)
[2022-09-30] MEDS: Cephalexin 500 MG Cap PO SCH (19:56)
[2022-10-01 07:29] LABS: BASOPHILS ABSOLUTE AUTO 0.02 K/uL (0.02-0.10); BASOPHILS PERCENT AUTO 0.3 % (0.0-0.5); EOSINOPHILS ABSOLUTE AUTO 0.19 K/uL (0.04-0.40); EOSINOPHILS PERCENT AUTO 3.3 % (1.0-5.0); HEMATOCRIT 24.5 % (40.0-54.0); LYMPHOCYTES ABSOLUTE AUTO 1.23 K/uL (1.50-4.00); LYMPHOCYTES PERCENT AUTO 21.3 % (20.0-40.0); MEAN CORPUSCULAR HEMOGLOBIN 32.9 pg (27.0-32.0); MEAN CORPUSCULAR HGB CONC 32.7 g/dL (31.0-35.0); MEAN CORPUSCULAR VOLUME 101 fL (76-96); MEAN PLATELET VOLUME 9.4 fL (6.0-10.0); MONOCYTES ABSOLUTE AUTO 0.28 K/uL (0.20-0.80); MONOCYTES PERCENT AUTO 4.9 % (3.0-10.0); NEUTROPHILS ABSOLUTE AUTO 4.05 K/uL (2.00-7.50); NEUTROPHILS PERCENT AUTO 70.2 % (45.0-70.0); PLATELET COUNT,PLT 418 K/uL (150-400); RED BLOOD CELL COUNT 2.43 M/uL (4.50-6.50); RED CELL DISTRIBUTION WIDTH 16.1 % (11.0-16.0); WHITE BLOOD CELL COUNT,WBC 5.8 K/uL (4.0-11.0)
[2022-10-01] MEDS: Calcium Carbonate 600 MG Tab PO SCH (07:45)
[2022-10-01] MEDS: Cephalexin 500 MG Cap PO SCH ×2 (07:45→19:53)
[2022-10-01] MEDS: Cholecalciferol (Vitamin D3) 2,000 Unit Cap PO SCH (07:45)
[2022-10-01] MEDS: Omeprazole 20 MG Cap.CR PO SCH (07:45)
[2022-10-01] MEDS: Azithromycin 250 MG Tab PO SCH (07:45)
[2022-10-01] MEDS: Cyanocobalamin (Vitamin B12) 1,000 MCG Tab PO SCH (07:45)
[2022-10-01] MEDS: Non-Formulary Medication 1 Each (Revefenacin [Yupelri] 175 MCG/3 ML Neb) INH SCH (07:54)
[2022-10-01 08:46] LABS: A/G RATIO 0.6 (0.8-2.0); ALBUMIN 1.9 g/dL (3.4-5.0); ANION GAP 9.9 mmol/L (5.0-15.0); BILIRUBIN TOTAL 0.4 mg/dL (0.0-1.0); BUN/CREATININE RATIO 14.9 (6-25); CALCIUM 8.3 mg/dL (8.5-10.1); CARBON DIOXIDE,CO2 26.9 mmol/L (21.0-32.0); CREATININE 0.67 mg/dL (0.70-1.30); EST CRCL DRUG DOSING (CG) 64.89 mL/min; POTASSIUM,K 4.8 mmol/L (3.5-5.1); PROTEIN TOTAL,TP 5.3 g/dL (6.4-8.2)
[2022-10-01] MEDS: Folic Acid 1 MG Tab PO SCH (10:25)
[2022-10-01] MEDS: ALFUZOSIN 10 MG PO SCH (18:48)
[2022-10-01] MEDS: Finasteride 5 MG Tab PO SCH (18:48)
[2022-10-01] MEDS: Albuterol 0.083% 2.5 MG/3 ML Neb Soln INH PRN (19:53)
[2022-10-01] MEDS: Polyethylene Glycol 3350 Powder 17 GM Packet PO PRN (19:53)
[2022-10-02] MEDS: Non-Formulary Medication 1 Each (Revefenacin [Yupelri] 175 MCG/3 ML Neb) INH SCH (07:36)
[2022-10-02] MEDS: Cephalexin 500 MG Cap PO SCH ×2 (07:36→20:24)
[2022-10-02] MEDS: Cyanocobalamin (Vitamin B12) 1,000 MCG Tab PO SCH (07:36)
[2022-10-02] MEDS: Omeprazole 20 MG Cap.CR PO SCH (07:36)
[2022-10-02] MEDS: Cholecalciferol (Vitamin D3) 2,000 Unit Cap PO SCH (07:36)
[2022-10-02] MEDS: Calcium Carbonate 600 MG Tab PO SCH (07:36)
[2022-10-02] MEDS: Azithromycin 250 MG Tab PO SCH (07:36)
[2022-10-02] MEDS: Lactobacillus Acidophilus/Lactobacillus Sporogenes (Probiotic) Tab PO SCH (09:20)
[2022-10-02] MEDS: Polyethylene Glycol 3350 Powder 17 GM Packet PO PRN (09:21)
[2022-10-02] MEDS: Folic Acid 1 MG Tab PO SCH (09:21)
[2022-10-02] MEDS: Finasteride 5 MG Tab PO SCH (17:13)
[2022-10-02] MEDS: Nystatin Susp 100,000 Unit/ML 5 ML UD Cup PO SCH ×2 (17:13→20:24)
[2022-10-02] MEDS: ALFUZOSIN 10 MG PO SCH (17:13)
[2022-10-02] MEDS: Albuterol 0.083% 2.5 MG/3 ML Neb Soln INH PRN (18:31)
[2022-10-02] MEDS: Calcium Carbonate 500 MG Tab.Chew PO PRN (18:31)
[2022-10-03] MEDS: Omeprazole 20 MG Cap.CR PO SCH (06:47)
[2022-10-03] MEDS: Nystatin Susp 100,000 Unit/ML 5 ML UD Cup PO SCH (07:45)
[2022-10-03] MEDS: Calcium Carbonate 600 MG Tab PO SCH (07:45)
[2022-10-03] MEDS: Cyanocobalamin (Vitamin B12) 1,000 MCG Tab PO SCH (07:45)
[2022-10-03] MEDS: Lactobacillus Acidophilus/Lactobacillus Sporogenes (Probiotic) Tab PO SCH (07:45)
[2022-10-03] MEDS: Cephalexin 500 MG Cap PO SCH (07:45)
[2022-10-03] MEDS: Non-Formulary Medication 1 Each (Revefenacin [Yupelri] 175 MCG/3 ML Neb) INH SCH (07:45)
[2022-10-03] MEDS: Cholecalciferol (Vitamin D3) 2,000 Unit Cap PO SCH (07:45)
[2022-10-03] MEDS: Azithromycin 250 MG Tab PO SCH (07:45)
[2022-10-03] MEDS: Folic Acid 1 MG Tab PO SCH (09:28)
[2022-10-03] MEDS: Calcium Carbonate 500 MG Tab.Chew PO PRN (09:28)
[2022-10-03] MEDS: Polyethylene Glycol 3350 Powder 17 GM Packet PO PRN (09:58)
[2022-10-03 10:35] VITALS: BP 101/61; PULSE 76
== END 2022-10-03 10:43 | disposition home or self-care (01) | DRG 194 ==
LOC: EDBD → LB.ED 14:15 → LB.MS 15:53 → UNDOADMIN 16:14
PROVIDERS: ADMIT Surgery; ATTEND Surgery
DX: J18.9 Pneumonia, unspecified organism (principal); E87.1 Hypo-osmolality and hyponatremia; J44.0 Chronic obstructive pulmonary disease with (acute) lower respiratory infection; Z20.822 Contact with and (suspected) exposure to COVID-19; Z66 Do not resuscitate; J44.9 Chronic obstructive pulmonary disease, unspecified; J61 Pneumoconiosis due to asbestos and other mineral fibers; M06.9 Rheumatoid arthritis, unspecified; E88.09 Other disorders of plasma-protein metabolism, not elsewhere classified; K21.9 Gastro-esophageal reflux disease without esophagitis; I25.2 Old myocardial infarction; Z90.49 Acquired absence of other specified parts of digestive tract; N40.0 Benign prostatic hyperplasia without lower urinary tract symptoms; Z88.2 Allergy status to sulfonamides; Z88.8 Allergy status to other drugs, medicaments and biological substances; Z79.899 Other long term (current) drug therapy; Z86.16 Personal history of COVID-19
CPT/HCPCS: 0240U; 36415; 71045; 80048; 80053; 81001; 82947; 83605; 85025; 93005; 96360; 97161-GP; 97165-GO; 97535-GO; 99222; 99231; 99238; 99285; 99285-25; A0425; A0429; A9270-GY; J0456; J0696; J3490; J7030; J7050